=== PATIENT | female | born 1995 | race Caucasian/White ===

== ENCOUNTER 2020-10-20 21:11 | Emergency (ER) | payer OTHER, SELFPAY ==
[2020-10-20 21:19] VITALS: BP 135/84; PULSE 87; RESP 18; TEMP 36.6; O2SAT 99; BMI 33.8
[2020-10-20 22:12] VITALS: BP 129/86; PULSE 81; RESP 16; TEMP 36.6; O2SAT 99
[2020-10-20] MEDS: Ketorolac Tromethamine 15 MG/ML VIAL IVPUSH (22:43)
[2020-10-20] MEDS: diphenhydrAMINE HCL 50 MG/ML VIAL 25 MG IVPUSH (22:43)
[2020-10-20] MEDS: 0.9 % Sodium Chloride 1,000 ML 999 ML IV (22:43)
[2020-10-20] MEDS: Metoclopramide HCl 10 MG/2 ML VIAL IVPUSH (22:44)
[2020-10-21] VITALS: BP 108/66; PULSE 78; RESP 18; O2SAT 99
--- NOTE | 2020-10-21 00:33 | ED_ITS ---
HPI - Headache General Chief Complaint: Headache Stated Complaint: MIGRAINE Time Seen by Provider: 10/20/20 21:34 Source: patient Mode of arrival: ambulatory Limitations: no limitations History of Present Illness HPI Narrative: States onset of headache since waking up this morning gradually worsening over the course of the day works in [employer] with OTC treatment. States longstanding history of migraine headache seen her primary care doctor has not formally been evaluated in neurology. Headache similar to previous however today a little longer but similar in intensity and description. No recent illness. No fever. No neck pain. No recent injury. Not thunderclap like. MD elicited complaint: migraine Onset (ago): day(s) (1) Onset description: gradually Location: diffuse Severity: moderate Quality & Timing: aching Exacerbating factors: none Relieving factors: dark room Context: occurred at rest Associated symptoms: photophobia and sensitivity to sound Treatments prior to arrival: acetaminophen Related Data Previous Rx's Medication Instructions Recorded naproxen 500 mg PO BID PRN #14 tab 10/21/20 Allergies Allergy/AdvReac Type Severity Reaction Status Date / Time No Known Allergies Allergy Unverified 04/19/20 16:36 Review of Systems Review of Systems: Constitutional: No Weight loss, No Fever, No Chills, No Night Sweats, No Fatigue, No Malaise ENT/Mouth: No Hearing loss, No Ear Pain, No Nasal Congestion, No Sinus Pain, No Hoarseness, No sore throat, No Rhinorrhea, No Swallowing Difficulty Eyes: No Eye Pain, No Swelling, No Redness, No Foreign Body, No Discharge, No Vision Changes Cardiovascular: No Chest Pain, No SOB, No Dyspnea on Exertion, No Orthopnea, No Edema, No Palpitations Respiratory: No Cough, No Sputum, No Wheezing, No Smoke Exposure, No Dyspnea Gastrointestinal: No Nausea, No Vomiting, No Diarrhea, No Constipation, No abdominal Pain, No Hematochezia, No Melena Genitourinary: no irregular bleeding, No Dysuria, No Urinary Frequency, No Hematuria, No Urinary Incontinence, No Urgency, No Flank Pain, No Urinary Flow Changes, No Hesitancy Musculoskeletal: No joint pain, No Myalgias, No Joint Swelling Skin: No Skin Lesions, No rash Neuro: No Weakness, No Numbness, No Paresthesias, No Loss of Consciousness, No Dizziness, + Headache Psych: No Social Issues Heme/Lymph: No Bruising, No Bleeding,No Lymphadenopathy Endocrine: No Polyuria, No Polydipsia, No Temperature Intolerance [facility] Past Medical History Medical History (Updated 10/21/20 @ 00:45 by Raj Cunha NP) Migraines Surgical History (Updated 10/20/20 @ 21:22 by Merline Palomares) History of appendectomy [place] teeth extracted Social History Social History Smoking Status: Never smoker Use of substances other than those prescribed or required for medical reasons: No Advance Directives: No Physical Exam Vital Signs: Vital Signs: Last Vital Signs Temp 97.8 F 10/20/20 22:12 Pulse 78 10/21/20 00:00 Resp 18 10/21/20 00:00 BP 108/66 10/21/20 00:00 Pulse Ox 99 10/21/20 00:00 Body Mass Index 33.8 Reviewed Const: General: cooperative and healthy appearing; No acute distress or intoxicated appearing Nutritional Appearance: average body habitus Orientation/consciousness: oriented to person, oriented to place, oriented to time and patient oriented x3 HENMT: Head: Yes normal to inspection Ears: hearing grossly normal bilaterally Eyes: General: appearance normal, both eyes and all related structures Visual Gaytan: normal visual gaytan by confrontation Pupils: Equal, round and reactive pupils present Neck: Neck: Yes normal visual inspection, Yes no meningeal signs, No positive Brudzinski's sign, No positive Kernig's sign and No tender Thyroid: Thyroid normal Chest: Chest palpation & inspection: normal inspection of the chest Resp: Effort & Inspection: normal respiratory effort Auscultation: clear to auscultation bilaterally Cardio: Jugular venous distension: no JVD Rhythm: regular rhythm Heart sounds: S1 normal heart sound present and S2 normal heart sound present GI: Inspection: Yes normal to inspection Palpation (GI): Soft to palpation Percussion: Yes normal to percussion Auscultation: normal bowel sounds : General: Yes no CVA tenderness Back/Spine/Pelvis: Back: no CVA tenderness Skin: General skin exam: no rashes or lesions noted Neuro: General: oriented to person, oriented to place, oriented to time, patient oriented x3, gait normal, tone normal, moves all extremities, Normal light touch and pain sensation, no meningeal signs, no focal motor deficits and CN's II-XI intact bilaterally Cranial nerves: Yes CN's II-XII intact bilaterally, Yes Facial sensation intact/muscles of mastication intact, Yes Intact sense of smell present, Yes Equal, round and reactive pupils present and Yes Normal accommodation reflex present Cognition (Neuro): normal cognition Gait exam (Neuro): Normal gait present Motor exam (neuro): 5/5 motor strength present throughout Extrem: General: Yes normal to inspection Psych: Appearance: grossly normal NIH Stroke Scale Internal: Initial- Upon Arrival Level of Consciousness: Alert Level of Consciousness Questions: Answers both questions correctly Level of Consciousness Commands: Performs both tasks correctly Best Gaze: Normal Visual: No visual loss Facial Palsy: Normal Motor Arm (Right): No drift Motor Arm (Left): No drift Motor Leg (Right): No drift Motor Leg (Left): No drift Limb Ataxia: Absent Sensory: Normal Best Language: No aphasia Dysarthia: Normal Extinction and Inattention: No abnormality Score: 0 Course Course Course Narrative: Feels much better after IV fluids and 25 mg of Benadryl/Reglan and Toradol. Headache has fully resolved able sleep for 1 hour. Educated on the importance of keeping a headache diary/log and will provide referral to Neurology. She feels comfortable plan she is thankful and verbalized understanding. Otherwise hemodynamically stable. Stable for discharge. Discharge Plan Discharge Clinical Impression: Migraine Patient Disposition: Home, Self-Care Instructions: Migraine Headache (ED) Additional Instructions: Keep a headache diary/log Stress relieving techniques Balanced diet Regular exercise Plan to sleep Follow-up with her primary care doctor as well as Neurology as discussed Return if any concerns or worsening symptoms Thank you Prescriptions: New naproxen 500 mg tablet 500 mg PO BID PRN (Reason: pain) Qty: 14 RF: 0 Referrals: Marcia Garza MD [Primary Care Provider] - 1 week Marguerite Lees MD [Physician] - 2 weeks
== END 2020-10-21 01:19 | disposition home or self-care (01) ==
PROVIDERS: Emergency Provider Internal Medicine; PCP Internal Medicine
DX: G43.909 Migraine, unspecified, not intractable, without status migrainosus (principal); Z79.899 Other long term (current) drug therapy
CPT/HCPCS: 96365; 96375; 99284; J1200; J1885; J2765

== ENCOUNTER 2021-04-11 14:24 | Outpatient (REF) | payer OTHER, SELFPAY ==
--- NOTE | ~2021-04-11 | XR_ITS ---
EXAMINATION: XR CHEST CLINICAL INFORMATION: Chest pain. COMPARISON: None TECHNIQUE: 2 views of the chest were obtained. FINDINGS: No significant abnormality is noted involving the heart, lungs, mediastinum, bony thorax or soft tissues. XR/XR chest 2V IMPRESSION: Unremarkable chest exam
== END 2021-04-11 14:25 | disposition home or self-care (01) ==
LOC: HO.HMGCX 14:24
PROVIDERS: Visit Provider Hospitalist
DX: Z13.89 Encounter for screening for other disorder (principal)
CPT/HCPCS: 71046

== ENCOUNTER → 2022-06-04 09:00 | Outpatient (BNVA) | payer OTHER, SELFPAY | PROVIDERS: PCP Family Medicine; Referring Provider Family Medicine; Visit Provider Internal Medicine Cardiovascular Disease | DX: R07.9 Chest pain, unspecified (principal); Q24.9 Congenital malformation of heart, unspecified | CPT/HCPCS: 93005 ==

== ENCOUNTER → 2022-06-25 07:51 | Outpatient (REF) | payer OTHER, SELFPAY ==
--- NOTE | 2022-06-25 07:54 | CA_ITS ---
Acquisition Time: 2022-06-25 08:00:20 Total Exercise Time: 00:05:42 Test Indications: CP Medications: SEE CHART Protocol: AMRITA Max HR: 187 BPM 95% of Pred: 196 BPM Max BP: 126/074 mmHG Max Work Load: 7.0 METS Exercise stress test with exercise 5 min 42 sec of Amrita protocol, achieving 95% MPHR, 7 METs, with moderate sob, with a slight burning in mid chest that occurred during exercise and lasted a few seconds and resolved while still on treadmill, without arrythmia, with normotensive response to exercise, without EKG changes meeting criteria for ischemia. While sitting in recliner in recovery she reported a slight reoccurence of the chest burning. Then at 8 min 50 sec recovery she reported pressure 4/10 in mid chest which is like what she gets at home EKG tracings continued to show no ischemic changes. Her symptom gradually improved during remainder of her 16 min recovery. Test reviewed with Dr Joshi. Referred By: Antonio Jefferson Overread By: ELIOT READ
== END ==
LOC: HO.CARD 07:51
PROVIDERS: Visit Provider Internal Medicine Cardiovascular Disease
DX: R07.9 Chest pain, unspecified (principal)
CPT/HCPCS: 93017

== ENCOUNTER 2022-12-25 12:36 | Inpatient (IN) | payer OTHER, SELFPAY ==
--- NOTE | ~2022-12-25 | US_ITS ---
EXAMINATION: US ABDOMEN LIMITED CLINICAL INFORMATION: Abdominal pain questionable cholecystitis. COMPARISON: CT scan from 07/28/2017 TECHNIQUE: Real-time imaging of the right upper quadrant abdominal viscera. FINDINGS: PANCREAS: Partially visualized pancreas is unremarkable but the tail obscured by bowel gas. LIVER: liver demonstrate increased echogenicity of liver due to hepatic steatosis. The liver is enlarged with the right lobe measured 19 cm.. The liver contour is normal. No focal hepatic lesion. There is no intrahepatic biliary duct dilatation seen. GALLBLADDER: Abnormal there are numerous mobile gallstones, gallbladder wall measures 0.4cm. Sonographic Cordero's sign reported negative COMMON BILE DUCT: Normal in caliber measuring 0.4 cm in diameter, without evidence of choledocholithiasis. RIGHT KIDNEY:No hydronephrosis. No renal calculi or focal parenchymal lesions. The kidney measures 10.8 cm in maximum dimension. FREE FLUID: None. US/US abdomen limited IMPRESSION: 1. Hepatic steatosis and hepatomegaly. 2. Cholelithiasis and mild gallbladder wall thickening.
--- NOTE | 2022-12-25 12:55 | ED.ABDPAIN ---
HPI - Abdominal Pain General Chief Complaint: Abdominal Pain Stated Complaint: Vomiting Dehydration Time Seen by Provider: 12/25/22 16:06 Source: patient Mode of arrival: ambulatory Limitations: no limitations History of Present Illness HPI narrative: Patient is a 27 year old female with history of congenital heart disease presenting to the emergency department today with chief complaint of right upper quadrant pain radiating to her back with associated nausea and vomiting. She reports that these symptoms began at 3am and that she has vomited about 8 times since. She tried taking pepto-bismol for the pain however this provided minimal relief and pain has remained a constant 05/12. She reports similar episodes of RUQ pain and vomitting in the past however never to this severity. Patient has a history of appendectomy and has had no recent travel or sick contacts. Denies chest pain, palpitations, shortness of breath, fevers. Related Data Home Medications Medication Instructions Recorded Confirmed diclofenac potassium 50 mg tablet 25 - 50 mg PO Q8H PRN pain 06/04/22 06/04/22 topiramate 25 mg tablet 25 mg PO DAILY 06/04/22 06/04/22 Allergies Allergy/AdvReac Type Severity Reaction Status Date / Time No Known Allergies Allergy Verified 04/11/21 13:53 Review of Systems Review of Systems Constitutional : No Weight loss, No Fever, + Chills, + Fatigue, + Malaise ENT/Mouth : No sore throat, No Rhinorrhea Eyes: No Eye Pain, No Swelling, No Redness Cardiovascular : No Chest Pain, No SOB, No Dyspnea on Exertion, No Orthopnea, No Edema, No Palpitations Respiratory : No Cough, No Sputum, No Wheezing Gastrointestinal : + Nausea, + Vomiting, No Diarrhea, No Constipation, + abdominal Pain, No Hematochezia, No Melena Genitourinary : No Dysuria, No Urinary Frequency, No Hematuria, Musculoskeletal : No joint pain, No Myalgias, No Joint Swelling Skin : No Skin Lesions, No rash Neuro : + Weakness, No Numbness, + Dizziness, No Headache Psych : No Anxiety/Panic, No Depression All other systems reviewed and are negative Yes all other systems are reviewed and are negative [facility] Past Medical History Attestation statement: The following information was validated with the patient. Source: old records reviewed and nursing notes reviewed Medical History Migraines Surgical History History of appendectomy Hx of heart surgery [place] teeth extracted Family History Family History Father Diabetes Mother Diabetes Social History Social History Patient Tobacco Use Status: Never used Tobacco Smoked in Last 30 Days: No Use of substances other than those prescribed or required for medical reasons: No Advance Directives: No Advance Directives Information Provided: No Physical Exam ED Vital Signs: Vital Signs - 24 hr 12/25/22 12:57 12/25/22 15:47 12/25/22 17:48 Temperature 96.8 F 98.5 F Pulse Rate 88 78 Respiratory Rate 18 18 16 Blood Pressure 148/110 H 144/86 H Pulse Oximetry 100 100 Oxygen Delivery Method Room Air Room Air 12/25/22 17:50 Temperature 98.9 F Pulse Rate 88 Respiratory Rate 16 Blood Pressure 129/77 Pulse Oximetry 100 Oxygen Delivery Method Room Air BMI result Body Mass Index 39.9 Vital signs stable Appearance: Alert.? Oriented X3.? No acute distress.?Appears uncomfortable. Head: Normocephalic, atraumatic, no step-offs or deformities Eyes: Pupils equal, round and reactive to light.? CVS: Normal heart rate and rhythm.? Pulses normal.? Respiratory: No respiratory distress.? Breath sounds normal.? Abdomen: Soft and RUQ pain + murphys sign, + right-sided CVA tenderness. Normal BS in all .? Skin: Skin warm and dry.? Normal skin color.? Normal skin turgor.? Extremities: No lower extremity edema.? No calf ttp. 5/5 strength to bilateral upper and lower extremities Neuro: Oriented X 3.? No motor deficit.? No sensory deficit. CN 2-12 intact Course Course Course Narrative: This is a rapid medical exam. Deferred additional HPI, ROS, PE to primary provider. 27 yo female w/ history of CHD with repair as a child, s/p appy here with RUQ abdominal pain with radiation to the right back, vomiting since 3am. Had rice, beans last night for dinner. LMP 3 weeks ago. WIll check labs, UA, ur preg, covid screen, abdominal US. Reevaluation(s) Reevaluation #1: CBC demonstrates leukocytosis WBC 12. Chemistry uremarkable. Lactic WNL. UA unremarkable. Urine preg negative. Time: 17:26 Reevaluation #2: Ultrasound showing cholelithiasis and mild gallbladder wall thickening. Will consult surgery Dr. Holden. Time: 17:28 Reevaluation #3: Patient to be surgically admitted at this time. Dr. Holden recommends adding a cephlasporin and NPO Time: 18:11 Medical Decision Making Medical Decision Making [facility] Narrative: 1728 Patient is a 27 year old female presenting with RUQ pain with radiation to the right flank, nausea, and vomiting since 3am. Physical exam significant for tenderness to palpation of RUQ, positive judge sign, nauseous and vomiting throughout my exam. Differential diagnosis includes kidney stones, acute cholecystitis, gastritis, peptic ulcers. Unlikely pyelonephritis, , ovarian torsion, ectopic, acute abdomen. Patient has a history of appendectomy. Plan labs, imaging, UA, test. Differential Diagnosis Differential Diagnoses: The differential diagnosis associated with the presentation includes Differential diagnosis includes kidney stones, acute cholecystitis, gastritis, peptic ulcers. Unlikely pyelonephritis, , ovarian torsion, ectopic, acute abdomen. Patient has a history of appendectomy. Admission/Observation Consideration of admission/observation: Escalation of care including admission/observation considered Lab Data [facility] Lab Attestation statement: I reviewed the patient's lab results. 12/25/22 13:09 12/25/22 13:09 Labs: Lab Results 12/25/22 12/25/22 12/25/22 Range/Units 13:09 13:09 13:09 WBC 12.0 H (4.8-10.8) X10*3/uL RBC 5.14 (4.20-5.50) X10*6/uL Hgb 14.4 (12.0-16.0) g/dl Hct 42.5 (37.0-47.0) % MCV 82.7 (80.0-98.0) fL MCH 28.0 (27.0-33.0) pg MCHC 33.9 (31.0-35.0) g/dl RDW 14.1 (11.0-16.0) % Plt Count 326 (160-400) X10*3/uL MPV 10.3 (9.4-12.3) fL Immature Gran % (Auto) 0.2 (0.0-0.4) % Neut % (Auto) 89.8 H (45-73) % Lymph % (Auto) 8.4 L (20-40) % [place] % (Auto) 1.4 L (2-11) % Eos % (Auto) 0.0 (0-4) % Baso % (Auto) 0.2 (0-2) % Lymph # (Auto) 1.0 L (1.2-4.9) X10*3/uL [place] # (Auto) 0.2 (0.1-1.2) X10*3/uL Eos # (Auto) 0.0 (0.0-0.4) X10*3/uL Baso # (Auto) 0.0 (0.0-0.2) X10*3/uL Abs Immat Gran (auto) 0.03 (0.00-0.03) X10*3/uL Absolute Neuts (auto) 10.8 H (2.0-8.3) x10*3/uL Absolute Nucleated RBC 0.000 (0.0-0.012) X10*3/uL Nucleated RBC % (auto) 0.0 (0.0-0.2) /100WBC Sodium 137 (135-145) mmol/L Potassium 4.6 (3.3-5.1) mmol/L Chloride 108 (96-108) mmol/L Carbon Dioxide 20 L (22-29) mmol/L Anion Gap 14 (12-20) BUN 12 (9-16) mg/dL Creatinine 0.63 (0.5-1.4) mg/dL Estim Creat Clear Calc 127.5 Estimated GFR > 60 Random Glucose 138 H (60-115) mg/dL Lactic Acid (0.5-2.0) mmol/L Calcium 9.8 (8.4-10.2) mg/dL Total Bilirubin 0.7 (0.0-1.0) mg/dL Direct Bilirubin 0.2 (0.0-0.5) mg/dL AST 19 (5-31) U/L ALT 32 H (0-31) U/L Alkaline Phosphatase 114 (39-117) U/L Total Protein 8.0 (6.5-8.0) g/dL Albumin 4.7 (3.5-5.0) g/dL Lipase 14 (8-78) U/L Urine Color Urine Appearance Urine pH (5.0-9.0) Ur Specific [place] (1.005-1.025) Urine Protein (Neg-Trace) mg/dL Urine Glucose (UA) (Negative) mg/dL Urine Ketones (Negative) mg/dL Urine Blood (Negative) Urine Nitrite (Negative) Ur Leukocyte Esterase (Negative) Urine Test (NEGATIVE) COVID-19 (SYLVIA) Negative (Negative) COVID-19 Clin Com See Note 12/25/22 12/25/22 12/25/22 Range/Units 13:13 13:13 16:43 WBC (4.8-10.8) X10*3/uL RBC (4.20-5.50) X10*6/uL Hgb (12.0-16.0) g/dl Hct (37.0-47.0) % MCV (80.0-98.0) fL MCH (27.0-33.0) pg MCHC (31.0-35.0) g/dl RDW (11.0-16.0) % Plt Count (160-400) X10*3/uL MPV (9.4-12.3) fL Immature Gran % (Auto) (0.0-0.4) % Neut % (Auto) (45-73) % Lymph % (Auto) (20-40) % [place] % (Auto) (2-11) % Eos % (Auto) (0-4) % Baso % (Auto) (0-2) % Lymph # (Auto) (1.2-4.9) X10*3/uL [place] # (Auto) (0.1-1.2) X10*3/uL Eos # (Auto) (0.0-0.4) X10*3/uL Baso # (Auto) (0.0-0.2) X10*3/uL Abs Immat Gran (auto) (0.00-0.03) X10*3/uL Absolute Neuts (auto) (2.0-8.3) x10*3/uL Absolute Nucleated RBC (0.0-0.012) X10*3/uL Nucleated RBC % (auto) (0.0-0.2) /100WBC Sodium (135-145) mmol/L Potassium (3.3-5.1) mmol/L Chloride (96-108) mmol/L Carbon Dioxide (22-29) mmol/L Anion Gap (12-20) BUN (9-16) mg/dL Creatinine (0.5-1.4) mg/dL Estim Creat Clear Calc Estimated GFR Random Glucose (60-115) mg/dL Lactic Acid 1.8 (0.5-2.0) mmol/L Calcium (8.4-10.2) mg/dL Total Bilirubin (0.0-1.0) mg/dL Direct Bilirubin (0.0-0.5) mg/dL AST (5-31) U/L ALT (0-31) U/L Alkaline Phosphatase (39-117) U/L Total Protein (6.5-8.0) g/dL Albumin (3.5-5.0) g/dL Lipase (8-78) U/L Urine Color Yellow Urine Appearance Clear Urine pH >= 9.0 (5.0-9.0) Ur Specific [place] 1.025 (1.005-1.025) Urine Protein Trace (Neg-Trace) mg/dL Urine Glucose (UA) Negative (Negative) mg/dL Urine Ketones 40 (Negative) mg/dL Urine Blood Negative (Negative) Urine Nitrite Negative (Negative) Ur Leukocyte Esterase Negative (Negative) Urine Test NEGATIVE (NEGATIVE) COVID-19 (SYLVIA) (Negative) COVID-19 Clin Com Independent Interpretation I performed an independent interpretation of an: Ultrasound (US/US abdomen limited IMPRESSION: 1.? Hepatic steatosis and hepatomegaly. 2.? Cholelithiasis and mild gallbladder wall thickening.) Radiology Impression Discussion of test interpretation with radiology: I have reviewed the radiologist's reading. External Record Review External record reviewed: Inpatient record, Office record, Outpatient record, Prior outpatient labs, Prior outpatient radiology, Primary care record and Outside ED record Core Measures AMI core measures followed: Yes Measure exclusions: not indicated Medications Administered Discontinued Medications Generic Name Dose Route Start Last Admin Trade Name Freq PRN Reason Stop Dose Admin Morphine Sulfate 4 mg 12/25/22 16:42 12/25/22 17:48 Morphine Sulfate 4 Mg/Ml Cartridge IVPUSH 12/25/22 16:43 4 mg ONCE ONE Administration Protocol Ondansetron HCl 4 mg 12/25/22 14:27 12/25/22 14:34 Ondansetron Odt 4 Mg Tab.Sheryl TRANSLINGU 12/25/22 14:28 4 mg ONCE ONE Administration Critical Care Time Critical Care Time Critical Care Time: Yes Total Critical Care Time: 35 Attestation: I attest to this time spent taking care of the patient, obtaining history, physical, reviewing labs, imaging, speaking to my attending, speaking to specialist. Discharge Plan Discharge Clinical Impression: Abdominal pain, Nausea & vomiting Patient Disposition: Admitted As Inpatient Prescriptions: No Action topiramate 25 mg tablet 25 mg PO DAILY diclofenac potassium 50 mg tablet 25 - 50 mg PO Q8H PRN (Reason: pain)
[2022-12-25 12:57] VITALS: BP 148/110; PULSE 88; RESP 18; TEMP 36; O2SAT 100; BMI 39.9
[2022-12-25 13:20] LABS: MANUAL DIFF FLAG NO
[2022-12-25 13:27] LABS: Basophils Percent Auto 0.2 % (0-2); Hematocrit 42.5 % (37.0-47.0); Hemoglobin 14.4 g/dl (12.0-16.0); Imm Gran Abs Auto 0.03 X10*3/uL (0.00-0.03); Imm Gran Pct Auto 0.2 % (0.0-0.4); Lymphocytes Percent Auto 8.4 % (20-40); Mean Corpuscular HGB Conc 33.9 g/dl (31.0-35.0); Mean Corpuscular Volume 82.7 fL (80.0-98.0); Mean Platelet Volume 10.3 fL (9.4-12.3); Monocytes Absolute Auto 0.2 X10*3/uL (0.1-1.2); Monocytes Percent Auto 1.4 % (2-11); Neutrophils Absolute Auto 10.8 x10*3/uL (2.0-8.3); Neutrophils Percent Auto 89.8 % (45-73); Platelet Count 326 X10*3/uL (160-400); Red Blood Count 5.14 X10*6/uL (4.20-5.50); Red Cell Distribution Width 14.1 % (11.0-16.0)
[2022-12-25 13:29] LABS: Appearance Urine Clear; Color Urine Yellow; Glucose Urine UA Negative (Negative); Leukocyte Esterase Urine Negative (Negative); Nitrite Urine Negative (Negative); PH >= 9.0 (5.0-9.0); Specific Gravity - Urine 1.025 (1.005-1.025); UPreg QC Valid YES; Urine Blood Negative (Negative); Urine Ketones 40 mg/dL (Negative); Urine Pregnancy NEGATIVE (NEGATIVE); Urine Protein Trace mg/dL (Neg-Trace)
[2022-12-25 13:40] LABS: COVID-19 Test Negative (Negative); IDNOW Serial# BCCEAD1C
[2022-12-25 13:43] LABS: Alanine Aminotransferase 32 U/L (0-31); Albumin Level 4.7 g/dL (3.5-5.0); Alkaline Phosphatase 114 U/L (39-117); Anion Gap 14 (12-20); Aspartate Amino Transferase 19 U/L (5-31); Bilirubin Direct 0.2 mg/dL (0.0-0.5); Bilirubin Total 0.7 mg/dL (0.0-1.0); Blood Urea Nitrogen 12 mg/dL (9-16); Calcium 9.8 mg/dL (8.4-10.2); Carbon Dioxide 20 mmol/L (22-29); Chloride 108 mmol/L (96-108); Creatinine Clr Calc Pharmacy 127.5; Estimated Glomerular Filt Rate > 60; Glucose Random 138 mg/dL (60-115); Potassium 4.6 mmol/L (3.3-5.1); Sodium 137 mmol/L (135-145)
[2022-12-25] MEDS: Ondansetron ODT 4 MG TAB.RAPDIS TRANSLINGU (14:34)
[2022-12-25 15:47] VITALS: BP 144/86; PULSE 78; RESP 18; TEMP 36.9; O2SAT 100
[2022-12-25 17:06] LABS: Lipase 14 U/L (8-78)
[2022-12-25 17:11] LABS: Lactic Acid 1.8 mmol/L (0.5-2.0)
[2022-12-25 17:48] VITALS: RESP 16
[2022-12-25] MEDS: Morphine Sulfate 4 MG/ML CARTRIDGE IVPUSH (17:48)
[2022-12-25 17:50] VITALS: BP 129/77; PULSE 88; RESP 16; TEMP 37.2; O2SAT 100
[2022-12-25] MEDS: cefTRIAXone sodium 1 GM in 0.9 % Sodium Chloride 50 ML IV (18:31)
--- NOTE | 2022-12-25 20:46 | PHA.MEDREC ---
Pharmacy Consult ? Medication Reconciliation Pharmacy has completed the medication reconciliation. Pt confirmed she is on topiramate 25 mg bid for migraine prevention and diclofenac for migraine pain. States no other medications but also doesn't remember the last time she took her medications. Says she did not take this morning dose.
[2022-12-25] MEDS: Lactated Ringers 1,000 ML 100 ML IVCONT (22:56)
[2022-12-25 23:33] VITALS: BP 135/82; PULSE 60; RESP 18; TEMP 36.4; O2SAT 98
--- NOTE | 2022-12-25 23:46 | PC.NURSE ---
Assumed care for patient at approximately 2130. A&O x4. Initially pain was 2/10. Is now increasing . Awaiting pain medication orders. Patient resting at present , vss, will continue to monitor.
[2022-12-26] VITALS (17 sets, daily range): BP systolic 128–169; BP diastolic 62–105; PULSE 60–91; RESP 16–20; TEMP 36.3–37.1; O2SAT 97–100
[2022-12-26] MEDS: Morphine Sulfate 4 MG/ML CARTRIDGE IVPUSH (00:03)
[2022-12-26] MEDS: Lactated Ringers 1,000 ML 100 ML IVCONT (08:41)
--- NOTE | 2022-12-26 08:44 | PM.HPGS ---
History of Present Illness History of Present Illness Date of Service: 12/26/22 Chief complaint: acute cholecystitis Narrative: Anand Geiger is a 27 year old female Presents with approximately 2 day history of progressively worsening epigastric right upper quadrant pain radiating around to her back. She has social nausea vomiting. She has no other GI issues or complaints. She is tolerating a diet. She is having normal bowel habits. Patient has never been jaundiced before. Chart was reviewed patient evaluated. most noteworthy for pediatric congenital heart surgery PMFSH Past Medical History Medical History Migraines Family History Family History Father Diabetes Mother Diabetes Surgical History Surgical History History of appendectomy Hx of heart surgery [place] teeth extracted Social History Social History Patient Tobacco Use Status: Never used Tobacco Smoked in Last 30 Days: No Use of substances other than those prescribed or required for medical reasons: No Advance Directives: No Advance Directives Information Provided: No Meds Allergies Allergy/AdvReac Type Severity Reaction Status Date / Time No Known Allergies Allergy Verified 04/11/21 13:53 Active Medications: Current Medications Lactated Ringer's (Lr) 1,000 mls @ 100 mls/hr IVCONT .Q10H REA Last Admin: 12/25/22 22:56 Dose: 100 mls/hr Ceftriaxone Sodium 1 gm/ (Sodium Chloride) 50 mls @ 100 mls/hr IV Q24H FOR[facility]LY [facility], [facility]–1983 Morphine Sulfate (Morphine Sulfate 4 Mg/Ml Cartridge) 4 mg IVPUSH Q4H PRN; Protocol PRN Reason: Pain, Severe (Pain Scale 7-10) Ondansetron HCl (Ondansetron Hcl 4 Mg/2 Ml Vial) 4 mg IVPUSH Q6H PRN PRN Reason: Nausea Oxycodone HCl (Oxycodone Hcl Immed Release 5 Mg Tablet) 5 mg PO Q4H PRN PRN Reason: Pain, Moderate(Pain Scale 4-6) Home Medications Medication Instructions Recorded Confirmed Last Taken Type diclofenac potassium 50 mg tablet 25 - 50 mg PO Q8H PRN Migraine 06/04/22 12/25/22 Unknown History Headache topiramate 25 mg tablet 25 mg PO BID 06/04/22 12/25/22 Unknown History Physical Exam Vital Signs: Vital Signs: Last Vital Signs Temp 98.2 F 12/26/22 07:23 Pulse 79 12/26/22 07:23 Resp 16 12/26/22 07:23 BP 130/74 12/26/22 07:23 Pulse Ox 98 12/26/22 07:23 O2 Del Method Room Air 12/26/22 07:23 BMI result Body Mass Index 39.9 Chest: Other: Chest breath sounds bilaterally, HS 1 and 2. GI: Other: Abdomen corpulent, marked right upper quadrant tenderness. No evidence of any rebound or rigidity. Results Results Labs: Short CBC 12/25/22 Range/Units 13:09 WBC 12.0 H (4.8-10.8) X10*3/uL Hgb 14.4 (12.0-16.0) g/dl Hct 42.5 (37.0-47.0) % Plt Count 326 (160-400) X10*3/uL BMP 12/25/22 13:09 Sodium 137 Potassium 4.6 Chloride 108 Carbon Dioxide 20 L BUN 12 Creatinine 0.63 Calcium 9.8 Liver Function 12/25/22 Range/Units 13:09 Total Bilirubin 0.7 (0.0-1.0) mg/dL Direct Bilirubin 0.2 (0.0-0.5) mg/dL AST 19 (5-31) U/L ALT 32 H (0-31) U/L Alkaline Phosphatase 114 (39-117) U/L Albumin 4.7 (3.5-5.0) g/dL Urine 12/25/22 12/25/22 Range/Units 13:13 13:13 Urine Color Yellow Urine Appearance Clear Urine pH >= 9.0 (5.0-9.0) Ur Specific [place] 1.025 (1.005-1.025) Urine Protein Trace (Neg-Trace) mg/dL Urine Glucose (UA) Negative (Negative) mg/dL Urine Test NEGATIVE (NEGATIVE) Assessment and Plan (1) Acute cholecystitis: Status: Acute Plan Clinical evaluation and sonographic studies are consistent with acute cholecystitis. Risks, benefits, alternatives of laparoscopic possible open cholecystectomy reviewed with the patient and included but not limited to bleeding, infection, recurrence, numbness, pain, scarring, bowel or duct injury or leak and the patient wishes to proceed. Arrangements will be made for this. All questions were answered. Time Spent With Patient Time: Total time managing care of this patient today ____ minutes. Quality Stroke Does the patient have a stroke diagnosis?: No VTE Prior VTE?: No VTE Risk Level:: Surgical - low VTE Device Contraindication: Treatment Not Tolerated VTE Drug Contraindication: Treatment Not Indicated Procedures Date of Service Date of Service: 12/26/22
--- NOTE | 2022-12-26 08:46 | PC.NURSE ---
patient a&ox3, currently kayla pain- states she has mild discomfort not enough to rate as pain to rt flank, ivf running per order, vss, daughter at bedside. pt requesting toothbrush/toothpaste, call quesada within reach, will continue to monitor
--- NOTE | 2022-12-26 11:03 | PC.NURSE ---
pt sent to short stay for surgery
--- NOTE | 2022-12-26 11:38 | HO.ANESPROP2 ---
HPI - Anesthesia Eval Consult details Narrative: Cholecystectomy PMFSH Active Problems Active Problems: All Active Problems (Updated 12/26/22 @ 08:46 by Kendrick Holden MD) Acute cholecystitis (Acute) Abdominal pain (Acute) Nausea & vomiting (Acute) Adult congenital heart disease (Acute) Chest pain (Acute) Past Medical History Medical History Migraines Family History Family History Father Diabetes Mother Diabetes Family history of problems with anesthesia: No Surgical History Surgical History History of appendectomy Hx of heart surgery [place] teeth extracted History of Problems with Anesthesia: No Social History Social History Patient Tobacco Use Status: Never used Tobacco Smoked in Last 30 Days: No Use of substances other than those prescribed or required for medical reasons: No Are you DNR?: No Advance Directives: No Advance Directives Information Provided: No Nutrition Risks: No Nutritional Risk Patient : No Meds Allergies Allergy/AdvReac Type Severity Reaction Status Date / Time No Known Allergies Allergy Verified 04/11/21 13:53 Active Medications: Current Medications Lactated Ringer's (Lr) 1,000 mls @ 100 mls/hr IVCONT .Q10H REA Last Admin: 12/26/22 08:41 Dose: 100 mls/hr Ceftriaxone Sodium 1 gm/ (Sodium Chloride) 50 mls @ 100 mls/hr IV Q24H REPLACED BY [facility] Morphine Sulfate (Morphine Sulfate 4 Mg/Ml Cartridge) 4 mg IVPUSH Q4H PRN; Protocol PRN Reason: Pain, Severe (Pain Scale 7-10) Ondansetron HCl (Ondansetron Hcl 4 Mg/2 Ml Vial) 4 mg IVPUSH Q6H PRN PRN Reason: Nausea Oxycodone HCl (Oxycodone Hcl Immed Release 5 Mg Tablet) 5 mg PO Q4H PRN PRN Reason: Pain, Moderate(Pain Scale 4-6) Home Medications Medication Instructions Recorded Confirmed Last Taken Type diclofenac potassium 50 mg tablet 25 - 50 mg PO Q8H PRN Migraine 06/04/22 12/25/22 Unknown History Headache topiramate 25 mg tablet 25 mg PO BID 06/04/22 12/25/22 Unknown History Exam Exam Date and Time: December 26, 2022 1138 Height,Weight and Vital Signs: Height 4 ft 10 in Weight 86.636 kg Last Vital Signs Temp 97.3 F 12/26/22 11:11 Pulse 90 12/26/22 11:11 Resp 20 12/26/22 11:11 BP 146/94 H 12/26/22 11:11 Pulse Ox 98 12/26/22 11:11 O2 Del Method Room Air 12/26/22 11:11 Pertinent Lab Results Pertinent Lab Results: Laboratory Tests 12/25/22 12/25/22 12/25/22 13:09 13:09 13:09 WBC 12.0 H RBC 5.14 Hgb 14.4 Hct 42.5 MCV 82.7 MCH 28.0 MCHC 33.9 RDW 14.1 Plt Count 326 MPV 10.3 Immature Gran % (Auto) 0.2 Neut % (Auto) 89.8 H Lymph % (Auto) 8.4 L [place] % (Auto) 1.4 L Eos % (Auto) 0.0 Baso % (Auto) 0.2 Lymph # (Auto) 1.0 L [place] # (Auto) 0.2 Eos # (Auto) 0.0 Baso # (Auto) 0.0 Abs Immat Gran (auto) 0.03 Absolute Neuts (auto) 10.8 H Absolute Nucleated RBC 0.000 Nucleated RBC % (auto) 0.0 Sodium 137 Potassium 4.6 Chloride 108 Carbon Dioxide 20 L Anion Gap 14 BUN 12 Creatinine 0.63 Estim Creat Clear Calc 127.5 Estimated GFR > 60 Random Glucose 138 H Lactic Acid Calcium 9.8 Total Bilirubin 0.7 Direct Bilirubin 0.2 AST 19 ALT 32 H Alkaline Phosphatase 114 Total Protein 8.0 Albumin 4.7 Lipase 14 Urine Color Urine Appearance Urine pH Ur Specific [place] Urine Protein Urine Glucose (UA) Urine Ketones Urine Blood Urine Nitrite Ur Leukocyte Esterase Urine Test COVID-19 (SYLVIA) Negative COVID-19 Clin Com See Note 12/25/22 12/25/22 12/25/22 13:13 13:13 16:43 WBC RBC Hgb Hct MCV MCH MCHC RDW Plt Count MPV Immature Gran % (Auto) Neut % (Auto) Lymph % (Auto) [place] % (Auto) Eos % (Auto) Baso % (Auto) Lymph # (Auto) [place] # (Auto) Eos # (Auto) Baso # (Auto) Abs Immat Gran (auto) Absolute Neuts (auto) Absolute Nucleated RBC Nucleated RBC % (auto) Sodium Potassium Chloride Carbon Dioxide Anion Gap BUN Creatinine Estim Creat Clear Calc Estimated GFR Random Glucose Lactic Acid 1.8 Calcium Total Bilirubin Direct Bilirubin AST ALT Alkaline Phosphatase Total Protein Albumin Lipase Urine Color Yellow Urine Appearance Clear Urine pH >= 9.0 Ur Specific [place] 1.025 Urine Protein Trace Urine Glucose (UA) Negative Urine Ketones 40 Urine Blood Negative Urine Nitrite Negative Ur Leukocyte Esterase Negative Urine Test NEGATIVE COVID-19 (SYLVIA) COVID-19 Clin Com Airway Mallampati Class: II TM Dist: >3cm Neck ROM: Full Heart: rrr Assessment and Plan Assessment Anesthesia Assessment: Anesthesia Plan Discussed Final Anesthetic Review Family History of Problems with Anesthesia: No History of Problems with Anesthesia: No NPO: Yes ASA Class: II Final Preanesthetic Review: No Changes in Pt Med Stat, Meds/Allgs Chart Reviewed, Consent Obtained/Reviewed and Anes Risks/Benef Reviewed Patient Risk: Intermediate Procedure Risk: Intermediate Assessment/Block/Sedation in SS: Assess/Block/Sedation-SS Anesthetic Plan Anesthetic Plan: GA Disposition: Standard PACU
--- NOTE | 2022-12-26 13:52 | W.PM.OPN ---
Operative Note Operative Note Date of Service: 12/26/22 Narrative: Preoperative diagnosis: [] acute cholecystitis Postop diagnosis: [] same Procedure [] laparoscopic cholecystectomy , laparoscopic adhesiono lysis Surgeon: [] Navin [employer]: [] farhad [place] Type of Anesthesia: [] general Indication for surgery: [] morbidly obese abdomen. Markedly edematous turgid gallbladder which was significantly intrahepatic. Omental adhesions to the gallbladder. Incidental finding of umbilical adhesions from prior surgical procedure necessitating laparoscopic adhesion lysis to allow camera and Endo-Catch bag into the abdominal cavity. Findings: [] the patient was brought to the operating room, placed on the operating table in a supine position, after adequate level of general anesthesia was induced, the patient's abdomen which was markedly corpulent was prepped and draped in usual sterile fashion. Using an infraumbilical curvilinear incision from a prior scar from previous abdominal surgery, this is carried down To the fascia and Atkins technique used to insufflate the abdominal cavity to 15 mm of CO2. Upper midline and right subcostal ports were placed under direct laparoscopic view, and the patient was positioned in reverse Trendelenburg and tilted to the left. Markedly swollen/ turgid gall bladder was decompressed with an aspirating device In order to be grasped with laparoscopic graspers.. Gallbladder was very intrahepatic. Omental adhesions were taken off the gallbladder. Incidental Omenta ladhesions to the umbilical port were also taken down by repositioning the camera into 1 of the lateral ports and taken down the adhesions with [place] dissector. Gallbladder was then grasped using laparoscopic graspers, retracted superiorly and laterally. Cystic artery and cystic duct urgent each identified, circumferentially skeletonized and each traced directly to the gallbladder. Each was clipped proximally x2, distally x1, and transected. Markedly intrahepatic gallbladder was then cauterized from the gallbladder fossa using Bovie. Specimen was placed in an Endo-Catch bag, retrieved through the umbilical port. Abdominal cavity was very copiously irrigated, and secured hemostasis. All ports were removed under direct laparoscopic view. Wounds were closed in the following manner; umbilical wound had its fascia reapproximated using interrupted 0 Vicryl sutures. Skin wounds were closed using subcuticular 4-0 Vicryl sutures followed by Steri-Strips and sterile dressings. Wounds were infiltrated 0.5% Marcaine at completion of the procedure procedure. Sponge, needle, and instrument counts were reported to be correct. Patient tolerated the procedure well and emerged anesthesia stable condition. EBL minimal
--- NOTE | 2022-12-26 14:05 | MHC.CM.PN ---
PT WAS IN [facility] THEN DC HOME. NOT SEEN BY CM FOR INTAKE.
--- NOTE | 2022-12-26 14:13 | HO.POSTANES ---
Post Anesthesia Evaluation Post Anesthesia Evaluation Date of Service: 01/02/23 Vital Signs: Vital Signs Temp Pulse Resp BP Pulse Ox O2 Del Method 12/26/22 11:11 97.3 F 90 20 146/94 H 98 Room Air 12/26/22 10:00 98.2 F 71 18 130/72 98 Room Air 12/26/22 08:00 98.1 F 72 16 128/77 98 Room Air 12/26/22 07:23 98.2 F 79 16 130/74 98 Room Air 12/26/22 05:18 98 F 60 18 130/62 98 Room Air Anesthesia: Regional Mental Status: Awake Pain Control: Satisfactory Nausea/Vomiting: None Anesthesia-Related Issues: No Anes. Related Issues
[2022-12-26] MEDS: oxyCODONE HCl Immed Release 5 MG TABLET PO (14:30)
[2022-12-26] MEDS: fentaNYL citrate/PF 100 MCG/2 ML VIAL 25 MCG IVPUSH ×4 (14:30→15:05)
--- NOTE | 2023-01-06 10:59 | P.DS_ITS ---
DS: Providers Provider Date of Service: 12/26/22 Date of admission: 12/26/22 07:15 Date of discharge: 12/26/22 Primary care physician: Lizzie Schwarz MD Attending physician on admission: Kendrick Holden Attending physician on discharge: Kendrick Holden DS: Diagnosis Discharge Diagnosis (1) Acute cholecystitis: Status: Acute DS: Summary Hospital Course Hospital Course: HPI AT ADMISSION: Anand Geiger is a 27 year old female Presents with approximately 2 day history of progressively worsening epigastric right upper quadrant pain radiating around to her back.? She has social nausea vomiting.? S he has no other GI issues or complaints.? She is tolerating a diet.? She is having normal bowel habits.? Patient has never been jaundiced before.?Chart was reviewed patient evaluated, most noteworthy for pediatric congenital heart surgery HOSPITAL COURSE: Clinical evaluation and sonographic studies were consistent with acute cholecystitis.? It was recommended to proceed with laparoscopic cholecystectomy possible open and she agreed to proceed. She was added onto the OR schedule for that day. On 12/26/22 a laparoscopic cholecystectomy was performed by Dr. Holden without complication. The patient tolerated the procedure well. She was doing well in PACU and was tolerating a solid diet with good pain control. She was ambulating without difficulty. She felt ready for discharge to home. She was discharged on 12/26/22 in stable condition. She is to follow up with Dr. Holden in 1 week in the office. Time Spent with Patient Time attestation: Total time managing care of this patient today ____ minutes. Discharge coordination time: Less than 30 minutes Quality: Safe Use of Opioids Does Pt have an Active Cancer Diagnosis on the Problem List?: No Quality: Stroke Does the patient have a stroke diagnosis?: No Physical Exam Vital Signs: Vital Signs: Last Vital Signs Temp 98.7 F 12/26/22 15:30 Pulse 75 12/26/22 15:30 Resp 19 12/26/22 15:30 BP 146/89 H 12/26/22 15:30 Pulse Ox 98 12/26/22 15:30 O2 Del Method Room Air 12/26/22 15:30 O2 Flow Rate 4 12/26/22 14:15 BMI result Body Mass Index 39.9 Const: General: comfortable, no acute distress and alert Orientation/consciousness: patient oriented x3 Resp: Effort & Inspection: normal respiratory effort GI: Inspection: No distended and Yes incision (dressings c/d/i) Palpation (GI): Soft to palpation Skin: General skin exam: no rashes or lesions noted and no jaundice Neuro: General: patient oriented x3 DS: Data Data Completed and Pending Completed studies during hospitalization [Text1]: 12/26/22 13:44 Surgical [PTH] Routine Gallbladder, cholecystectomy:? -Subacute on chronic cholecystitis.? -Cholelithiasis.? -Benign reactive periductal lymph node. Procedures Release Peritoneum, Percutaneous Endoscopic Approach (12/26/22) Resection of Appendix, Percutaneous Endoscopic Approach (12/26/22) Discharge Plan Discharge Anticipated Discharge Date/Time: 12/27/22 12:02 Patient Disposition: Home, Self-Care Discharge Diagnosis: acute cholecystitis s/p lap dayne Referrals: Kendrick Holden MD [Physician] - 1 Week Lizzie Schwarz MD [Primary Care Provider] - 1 Week Discharge Medications: New docusate sodium [Colace] 100 mg capsule 100 mg PO BID Qty: 30 0RF Continued topiramate 25 mg tablet 25 mg PO BID diclofenac potassium 50 mg tablet 25 - 50 mg PO Q8H PRN (Reason: Migraine Headache) Discharge Orders: Discharge Order (Routine); Ordered 12/26/22 Ordered By: Kendrick Holden Diet: Low fat, low cholesterol Activity on Discharge: No heavy lifting Stand Alone Forms: Patient Portal Discharge page Activity Restrictions/Additional Instructions: Apply an ice pack for short intervals (20 minutes on, followed by at least 20 minutes off) for the first 2 days. Do not apply heat. Do not use creams, lotions, or topical antibiotics. These can cause infection or allergic reaction. Ok to shower 48 hours after your surgery. Remove dressings in 2 days and replace as needed. You have steri strips (small white cloth strips) covering your incision- these will fall off ~1 week. Follow up in office with Dr. Holden in 1 week. ([phone]) No heavy lifting (>10lbs) or strenuous activity! Call Your Doctor If: -Your temperature exceeds 101.5? F -You experience excessive pain or swelling -You have an unexpected reaction to medication -You have excessive bleeding -You experience continued vomiting/nausea -Your incision begins to separate -Your incision shows signs of infection such as increased redness, swelling, excessive pain, drainage (light blood or clear fluid is normal) or heat Care Plan Goals: Return to baseline health and resume normal activities following recovery period. Health Concerns: acute cholecystitis Plan of Treatment: s/p laparoscopic cholecystectomy f/u in office with Dr. Holden Assessment: Doing well post op Discharge Date/Time: 12/26/22 16:37
== END 2022-12-26 16:37 | disposition home or self-care (01) | DRG 425 ==
LOC: HO.ED 21:20 → HO.EDOVER 12-26 07:23
PROVIDERS: Nurse Practitioner Family; Physician Assistant; Admitting Provider Surgery; Emergency Provider Emergency Medicine; PCP Family Medicine; Visit Provider Surgery
PROC: 0FT44ZZ Resection of Gallbladder, Percutaneous Endoscopic Approach (ICD-10-PCS; CPT 47562; principal; 2022-12-26 13:50)
DX: K81.0 Acute cholecystitis (principal); G43.909 Migraine, unspecified, not intractable, without status migrainosus; K66.0 Peritoneal adhesions (postprocedural) (postinfection); Z20.822 Contact with and (suspected) exposure to COVID-19; Z79.899 Other long term (current) drug therapy
CPT/HCPCS: 36415; 76705; 80048; 80076; 81003; 81025; 83605; 83690; 85025; 87040; 87635; 88304; 99285; J0131; J0696; J1100; J1885; J2270; J2405; J2795; J3010

== ENCOUNTER → 2023-01-05 09:34 | Outpatient (BNVA) | payer OTHER, SELFPAY | PROVIDERS: PCP Family Medicine; Visit Provider Surgery ==

== ENCOUNTER 2023-01-05 15:09 | Outpatient (REF) | payer OTHER, SELFPAY ==
--- NOTE | ~2023-01-05 | XR_ITS ---
EXAMINATION: XR CHEST CLINICAL INFORMATION: Pulmonary embolism COMPARISON: Previous chest x-ray April [address] scan 01/05/2023 TECHNIQUE: Frontal view of the chest was obtained. FINDINGS: The cardiac and mediastinal contours are normal. There is subsegmental atelectasis in the right perihilar region. The lungs are otherwise clear. There is no pleural effusion or pneumothorax. Bony structures are unremarkable. XR/XR chest 1V IMPRESSION: Subsegmental atelectasis in the right perihilar region.
--- NOTE | ~2023-01-05 | NM_ITS ---
EXAMINATION: NM LUNG IMAGE PERFUSION CLINICAL INFORMATION: Reason for Exam I26.99 - Other pulmonary embolism without acute cor pulmonale Additional Notes/Special Instructions postop. Shortness of breath. Dizziness. Postop gallbladder surgery 12/26/2022 COMPARISON: Chest x-ray 01/05/2023 TECHNIQUE: 4 mCi technetium 99m MAA was injected intravenously. Multiple images obtained over the lungs. NM/NM pul perfusion FINDINGS/IMPRESSION: There is homogeneous perfusion of the right and left lung. No perfusion defect. No evidence of pulmonary embolism.
== END 2023-01-05 15:10 | disposition home or self-care (01) ==
LOC: HO.CT 15:09
PROVIDERS: PCP Family Medicine; Visit Provider Surgery
DX: I26.99 Other pulmonary embolism without acute cor pulmonale (principal)
CPT/HCPCS: 71045; 78580; A9540

== ENCOUNTER 2023-02-27 10:52 | Outpatient (REF) | payer OTHER, SELFPAY ==
[2023-02-27 13:07] LABS: MANUAL DIFF FLAG NO
[2023-02-27 13:33] LABS: Basophils Percent Auto 0.5 % (0-2); Eosinophils Absolute Auto 0.1 X10*3/uL (0.0-0.4); Eosinophils Percent Auto 1.2 % (0-4); Hematocrit 42.2 % (37.0-47.0); Hemoglobin 13.9 g/dl (12.0-16.0); Imm Gran Abs Auto 0.02 X10*3/uL (0.00-0.03); Imm Gran Pct Auto 0.3 % (0.0-0.4); Lymphocytes Absolute Auto 2.6 X10*3/uL (1.2-4.9); Lymphocytes Percent Auto 34.8 % (20-40); Mean Corpuscular HGB Conc 32.9 g/dl (31.0-35.0); Mean Corpuscular Hemoglobin 28.2 pg (27.0-33.0); Mean Corpuscular Volume 85.6 fL (80.0-98.0); Mean Platelet Volume 11.4 fL (9.4-12.3); Monocytes Absolute Auto 0.3 X10*3/uL (0.1-1.2); Monocytes Percent Auto 4.4 % (2-11); Neutrophils Absolute Auto 4.4 x10*3/uL (2.0-8.3); Neutrophils Percent Auto 58.8 % (45-73); Platelet Count 341 X10*3/uL (160-400); Red Blood Count 4.93 X10*6/uL (4.20-5.50); Red Cell Distribution Width 14.6 % (11.0-16.0); White Blood Count 7.4 X10*3/uL (4.8-10.8)
[2023-02-27 13:55] LABS: Cholesterol 147 mg/dL; HDL Cholesterol 39 mg/dL; LDL Cholesterol Calculated 98 mg/dl; Triglycerides 52 mg/dL
[2023-02-27 14:05] LABS: Estimated Average Glucose 105 mg/dL; Hemoglobin A1C 122.0234 umol/L; Hemoglobin A1c % 5.3 %
[2023-02-27 14:11] LABS: Alanine Aminotransferase 29 U/L (0-31); Albumin Level 4.4 g/dL (3.5-5.0); Alkaline Phosphatase 110 U/L (39-117); Anion Gap 18 (12-20); Aspartate Amino Transferase 19 U/L (5-31); Bilirubin Total 0.4 mg/dL (0.0-1.0); Blood Urea Nitrogen 12 mg/dL (9-16); Calcium 9.6 mg/dL (8.4-10.2); Carbon Dioxide 18 mmol/L (22-29); Chloride 105 mmol/L (96-108); Estimated Glomerular Filt Rate > 60; Glucose Fasting 83 mg/dL (60-99); Potassium 4.4 mmol/L (3.3-5.1); Sodium 137 mmol/L (135-145); Total Protein 7.7 g/dL (6.5-8.0)
[2023-02-27 14:13] LABS: Reflex LDLD? No
== END 2023-02-27 10:53 | disposition home or self-care (01) ==
LOC: HO.10HDL 10:52
PROVIDERS: Visit Provider Family Medicine
DX: Z00.00 Encounter for general adult medical examination without abnormal findings (principal); R10.32 Left lower quadrant pain; Q24.9 Congenital malformation of heart, unspecified; E66.9 Obesity, unspecified; Z13.1 Encounter for screening for diabetes mellitus; Z13.29 Encounter for screening for other suspected endocrine disorder
CPT/HCPCS: 36415; 80053; 80061; 83036; 84443; 85025

== ENCOUNTER 2023-04-10 08:21 | Outpatient (REF) | payer OTHER, SELFPAY ==
--- NOTE | ~2023-04-10 | US_ITS ---
EXAMINATION: US LOWER EXTREMITY VENOUS (REFLUX EXAM), BILATERAL CLINICAL INDICATION: Leg swelling COMPARISON: None. TECHNIQUE: Color flow triplex imaging and compression Doppler was performed to evaluate both the deep and the superficial systems bilaterally. To evaluate the superficial system, the examination was performed in the upright position. Color-flow Doppler ultrasound and compression ultrasound were utilized. In addition, maneuvers were utilized to demonstrate reflux. FINDINGS: RIGHT: 1. DEEP VENOUS ULTRASOUND OF THE RIGHT LOWER EXTREMITY: Common Femoral Vein: Compressible, normal respiratory variation and augmented flow. Popliteal Vein: Compressible, normal augmentation. Deep Venous Reflux: There is no evidence of reflux in the deep system in either the common femoral vein or the popliteal vein. There is no evidence of a Coats's cyst. 2. SUPERFICIAL ULTRASOUND WITH DOPPLER OF RIGHT LOWER EXTREMITY: RIGHT GREAT SAPHENOUS VEIN: Saphenofemoral Junction: 4 mm. No reflux. Proximal Thigh: 4 mm. No reflux. Mid Thigh: 3 mm. No reflux. Above Knee: 4 mm. No reflux. Below Knee: 3 mm. No reflux. Mid Calf: 2 mm. No reflux. Ankle: 2 mm. No reflux. DUPLICATED GREAT SAPHENOUS VEIN: Yes, laterally Saphenofemoral junction: 2 mm. No reflux. Mid thigh: Not seen RIGHT SMALL SAPHENOUS VEIN: Proximal: 6 mm. No reflux. Distal: 2 mm. No reflux. PERFORATORS: None LEFT: 1. DEEP VENOUS ULTRASOUND OF THE LEFT LOWER EXTREMITY: Common Femoral Vein: Compressible, normal respiratory variation and augmented flow. Popliteal Vein: Compressible, normal augmentation. Deep Venous Reflux: There is no evidence of reflux in the deep system in either the common femoral vein or the popliteal vein. There is no evidence of a Coats's cyst. 2. SUPERFICIAL ULTRASOUND WITH DOPPLER OF LEFT LOWER EXTREMITY: LEFT GREAT SAPHENOUS VEIN: Saphenofemoral Junction: 6 mm. No reflux. Proximal Thigh: 3 mm. No reflux. Mid Thigh: 3 mm. No reflux. Above Knee: 4 mm. No reflux. Below Knee: 3 mm. No reflux. Mid Calf: 3 mm. No reflux. Ankle: 3 mm. No reflux. DUPLICATED GREAT SAPHENOUS VEIN: None LEFT SMALL SAPHENOUS VEIN: Proximal: 2 mm. No reflux. Distal: 2 mm. No reflux. PERFORATORS: None US/US venous duplex LE BI IMPRESSION: No lower extremity varicose veins with abnormal reflux. No evidence of DVT. Abnormal lower extremity venous reflux times: Superficial and deep calf veins: >500 ms Femoropopliteal veins: >1000 ms Perforating veins: >350 ms Sarah N, Sergio J, Paola L, Pelon AK, Estevan SS, Carina Tolentino M, Pauly WH. Definition of venous reflux in lower-extremity veins.J Vasc Surg. 2003; [id number].
== END 2023-04-10 08:22 | disposition home or self-care (01) ==
LOC: HO.US 08:21
PROVIDERS: PCP Family Medicine; Visit Provider Family Medicine
DX: Q24.9 Congenital malformation of heart, unspecified (principal); M79.89 Other specified soft tissue disorders; R03.0 Elevated blood-pressure reading, without diagnosis of hypertension
CPT/HCPCS: 93970

== ENCOUNTER 2024-08-18 10:02 | Outpatient (REF) | payer OTHER, SELFPAY ==
[2024-08-18 11:16] LABS: MANUAL DIFF FLAG NO
[2024-08-18 11:22] LABS: Basophils Percent Auto 0.4 % (0-2); Eosinophils Absolute Auto 0.1 X10*3/uL (0.0-0.4); Eosinophils Percent Auto 1.7 % (0-4); Hematocrit 42.7 % (37.0-47.0); Hemoglobin 14.3 g/dl (12.0-16.0); Imm Gran Abs Auto 0.02 X10*3/uL (0.00-0.03); Imm Gran Pct Auto 0.3 % (0.0-0.4); Lymphocytes Absolute Auto 1.8 X10*3/uL (1.2-4.9); Lymphocytes Percent Auto 23.2 % (20-40); Mean Corpuscular HGB Conc 33.5 g/dl (31.0-35.0); Mean Corpuscular Hemoglobin 27.8 pg (27.0-33.0); Mean Corpuscular Volume 82.9 fL (80.0-98.0); Mean Platelet Volume 10.5 fL (9.4-12.3); Monocytes Absolute Auto 0.3 X10*3/uL (0.1-1.2); Monocytes Percent Auto 4.5 % (2-11); Neutrophils Absolute Auto 5.3 x10*3/uL (2.0-8.3); Neutrophils Percent Auto 69.9 % (45-73); Platelet Count 314 X10*3/uL (160-400); Red Blood Count 5.15 X10*6/uL (4.20-5.50); Red Cell Distribution Width 14.7 % (11.0-16.0); White Blood Count 7.6 X10*3/uL (4.8-10.8)
[2024-08-18 11:34] LABS: Estimated Average Glucose 120 mg/dL; Hemoglobin A1C 148.2004 umol/L; Hemoglobin A1c % 5.8 % (<6.0); Total Hemoglobin (HGBA1C) 3749.2658 umol/L
[2024-08-18 12:40] LABS: Alanine Aminotransferase 38 U/L (0-31); Albumin Level 4.3 g/dL (3.5-5.0); Alkaline Phosphatase 87 U/L (39-117); Anion Gap 9 (12-20); Aspartate Amino Transferase 24 U/L (5-31); Bilirubin Total 0.4 mg/dL (0.0-1.0); Blood Urea Nitrogen 11 mg/dL (9-16); Calcium 8.8 mg/dL (8.4-10.2); Carbon Dioxide 26 mmol/L (22-29); Chloride 109 mmol/L (96-108); Cholesterol 131 mg/dL (<200); Estimated Glomerular Filt Rate > 60; Glucose Random 118 mg/dL (60-115); HDL Cholesterol 39 mg/dL (>40); LDL Cholesterol Calculated 80 mg/dL (<100); Potassium 4.3 mmol/L (3.3-5.1); Sodium 140 mmol/L (135-145); TSH reflex Free T4 1.37 uIU/mL (0.32-4.0); Total Protein 7.8 g/dL (6.5-8.0); Triglycerides 63 mg/dL (<150)
[2024-08-18 12:51] LABS: Reflex LDLD? No
== END 2024-08-18 10:03 | disposition home or self-care (01) ==
LOC: HO.HHCL 10:02
PROVIDERS: Visit Provider Family Medicine
DX: R03.0 Elevated blood-pressure reading, without diagnosis of hypertension (principal); R42 Dizziness and giddiness; R73.03 Prediabetes; Q24.9 Congenital malformation of heart, unspecified
CPT/HCPCS: 36415; 80053; 80061; 83036; 84443; 85025

== ENCOUNTER 2025-04-20 15:20 | Outpatient (REF) | payer OTHER, SELFPAY ==
--- OUTSIDE RECORDS SUMMARY | 2025-04-20 15:00 | XMS_ITS | Encounter Summary ---
Author Organization [employer] Address [address] [facility] [address] [place] [address] Care Team Providers Care Asp Developer Name Role Phone Lizzie Schwarz MD Primary Care Provider [phone] Reason for Visit * Reason Comments Abdominal Pain Encounter Details Date Type Department Care Team ([facility] st Contact Info) Description 04/20/2025 3:00 PM EDT Office Visit [facility] [address] [place] [address] Epigastric pain (Primary Dx) Social History Tobacco Use Types Packs/Day Years Used Date Smoking Tobacco: Never Smokeless Tobacco: Never Alcohol Use Standard Drinks/Week Comments Never 0 (1 standard drink = 0.6 oz pur e alcohol) Depression Answer Date Recorded Patient Health Questionnaire-9 Score 9 08/18/2024 Patient Health Questionnaire-9 Score 9 08/18/2024 Last PHQ-9: Questionnaire Data Not on file 0 08/18/2024 Housing Stability Answer Date Recorded What is your housing situation today? I have housing today, but I am worried about losing housing in the future 08/18/[address] you li ve. Do you have problems with any of the following? None of the above 08/18/2024 Food Insecurity Answer Date Recorded Within the past 12 months, y ou worried that your food would run out before you got money to buy more: Never True 08/18/2024 Within the past 12 months,th e food you bought just didn't last and you didn't have enough money to get more: Never True Transportation Answer Date Recorded In the past 12 months, has l ack of transportation kept you from medical appts, meetings, work or from getting things needed for daily living? No 08/08/2024 Utilities Answer Date Recorded In the past 12 months, has t he electric, gas, oil or water company threatened to shut off services in your home? No 08/08/2024 Depression Answer Date Recorded Patient Health Questionnaire-2 Score 1 08/18/2024 Internet Access Answer Date Recorded Internet Access Q1 Yes 08/08/2024 Internet Access Q2 Not on file 08/08/2024 Comments Unknown Sex and Gender Information Value Date Recorded Sex Assigned at Female 06/02/2022 10:23 AM EDT Legal Sex Female 10:23 AM EDT Gender Identity Female 06/02/2022 10:23 AM EDT Sexual Orientation Straight 06/02/2022 10 :23 AM EDT documented as of this encounter Last Filed Vital Signs Vital Sign Reading Time Taken Comments Blood Pressure 128/90 04/20/2025 2:34 PM EDT Pulse 85 04/20/2025 2:34 PM EDT Temperature 36.7 C (98.1 F) 04/20/2025 2:34 PM EDT Respiratory Rate 18 04/20/2025 2:34 PM EDT Oxygen Saturation 100% 04/20/2025 2:34 PM EDT Inhaled Oxygen Concentration - - Weight 79.7 kg (175 lb 9.6 oz) 04/20/2025 2:34 P M EDT Height - - Body Mass Index 35.94 08/18/2024 9:20 AM EST documented in this encounter Plan of Treatment Scheduled Orders Name Type Priority Associated Diagnoses Orde r Schedule Helicobacter pylori, Urea Breath Test Lab Routine Epigastric pain Ordered: 04/20/2025 Hepatic Function Panel Lab Routine Epigastric pain Expected: 04/20/2025 (Approximate), Expires: 04/20/2026 CBC Lab Routine Epigastric pain Expected: 04/20/2025, Expires: 04/20/2026 Basic Metabolic Panel Lab Routine Epigastric pain Expected: 04/20/2025 (Approximate), Expires: 04/20/2026 Amylase Lab Routine Epigastric pain Expected: 04/20/2025 (Approximate), Expires: 04/20/2026 Lipase Lab Routine Epigastric pain Expected: 04/20/2025, Expires: 04/20/2026 documented as of this encounter Visit Diagnoses Diagnosis Epigastric pain- Primary Abdominal pain, epigastric documented in this encounter Additional Health Concerns Assessment Noted Time PHQ-9 Depression Total Score: 9 08/18/19 25 10:26 AM EST documented as of this encounter Care Teams Asp Developer Relationship Specialty Start Date End Date Lizzie Schwarz MD [address] [place] [address] PCP - General Family Medicine 03/20/22 documented as of this encounter
[2025-04-20 16:20] LABS: Hematocrit 45.3 % (37.0-47.0); Hemoglobin 14.9 g/dl (12.0-16.0); Mean Corpuscular HGB Conc 32.9 g/dl (31.0-35.0); Mean Corpuscular Hemoglobin 27.6 pg (27.0-33.0); Mean Corpuscular Volume 84.0 fL (80.0-98.0); NRBC Abs Auto 0.000 X10*3/uL (0.0-0.012); NRBC Pct Auto 0.0 /100WBC (0.0-0.2); PLT CLUMP 1; Red Blood Count 5.39 X10*6/uL (4.20-5.50)
--- OUTSIDE RECORDS SUMMARY | 2025-04-20 16:47 | XMS_ITS | Clinical Summary ---
Author Organization [employer] Address [address] [facility] [address] [place] [address] Care Team Providers Care Communications Department Chairperson Name Role Phone Lizzie Schwarz MD Primary Care Provider [phone] Allergies No known active allergies Medications Blood Pressure Monitor kit Check blood pressure once daily and as needed 1 kit 3 Active fluticasone (Flonase) 50 MCG/ACT nasal spray Administer 1 spray into each nostril in the morning. 16 g 4 Active Topiramate ER 25 MG capsule extended-release 24 hour sprinkle TAKE 1 CAPSULE BY MOUTH TWICE DAILY. 180 capsule 3 5 Active clotrimazole-bet amethasone (Lotrisone) cream Apply topically 2 times daily. 15 g 3 5 Active Tirzepatide-Weig ht Management (Zepbound) 2.5 MG/0.5ML solution auto-injectorInd ications:Class 3 severe obesity due to excess calories with serious comorbidity and body mass index (BMI) of 40.0 to 44.9 in adult Inject 0.5 mL (2.5 mg) under the skin 1 (one) time per week. 2 mL 11 5 Active omeprazole OTC (PriLOSEC OTC) 20 MG EC tablet Take 1 tablet (20 mg) by mouth before breakfast and before evening meal. Do not crush, chew, or split. 60 tablet 3 5 04/20/20 26 Active famotidine (Pepcid) 40 MG tablet Take 1 tablet (40 mg) by mouth at bedtime. 30 tablet 3 5 04/20/20 26 Active polycarbophil (Fibercon) 625 MG tablet Take 1 tablet (625 mg) by mouth 2 times daily. 60 tablet 3 5 04/20/20 26 Active Saccharomyces boulardii (probiotic) 250 MG capsule Take 1 capsule (250 mg) by mouth Once per day. 30 capsule 3 5 04/20/20 26 Active Active Problems Problem Noted Date Diagnosed Date Dizziness 08/18/2024 Assessment & Plan (08/18/2024 10:22 AM EST): - likely benign, yet not classic for BPPV - check lab - consider sleep study Status post appendectomy 08/18/2024 Tinea pedis 08/18/2024 Assessment & Plan (08/18/2024 10:24 AM EST): - antifungal topical Elevated blood pressure read ing without diagnosis of hypertension 03/22/2023 Overview (03/22/2023): - monitor home BP - lifestyle modifications Assessment & Plan (08/18/2024 2:03 PM EST): -Goal BP < 140/90 per JNC-8 and < 130/80 per ACC/AHA guideline (Treatment threshold >= 140/90 ) -BP borderline -Continue working on lifestyle modifications -Recommended self-monitoring BP. -Discussed about pharmacological treatment if home BP is elevated -Consider sleep study Assessment & Plan (03/22/2023 6:08 AM EDT): -Goal BP < 140/90 per JNC-8 and < 130/80 per ACC/AHA guideline (Treatment threshold >= 140/90 ) -BP borderline -Continue working on lifestyle modifications -Recommended self-monitoring BP. -Follow up in 3-6 mo, sooner if any problem arises Status post laparoscopic cholecystectomy 023 Assessment & Plan (03/22/2023 6:05 AM EDT): - 12/26/[address] Holden - no post-op complication Obesity 01/20/2023 Assessment & Plan (08/18/2024 10:21 AM EST): - 02/27/23 A1C 5.3%; lipid profile showed low HDL; normal TSH - Strong family history of obesity and metabolic syndrome - tried and failed phentermine - Will try GLP1-RA. - Encouraged to take topiramate everyday as it is known to have a favorable side effect of weight loss - Continue working on lifestyle modifications - Follow up in 3 mo Assessment & Plan (03/22/2023 6:16 AM EDT): - 02/27/23 A1C 5.3%; lipid profile showed low HDL; normal TSH - Strong family history of obesity and metabolic syndrome - Discussed about GLP-1 agonist, which is unlikely to get covered by her insurance - Will try phentermine - Encouraged to take topiramate everyday as it is known to have a favorable side effect of weight loss - Continue working on lifestyle modifications - Follow up in 3 mo Migraine headache 01/13/2023 Assessment & Plan (08/18/2024 9:54 AM EST): - evaluated by neurologistMarquez, on 06/30/22 and 10/17/22, safely discharged due to improvement and stability - CTA negative for aneurysm in Aug 2022 - Recommended by neurologist to continue topirmate 25 mg bid as prophylaxis and diclofenac 50 mg prn for abortive medication Assessment & Plan (03/22/2023 6:07 AM EDT): - evaluated by neurologistMarquez, on 06/30/22 and 10/17/22, safely discharged due to improvement and stability - CTA negative for aneurysm in Aug 2022 - Recommended by neurologist to continue topirmate 25 mg bid as prophylaxis and diclofenac 50 mg prn for abortive medication Assessment & Plan (01/13/2023 5:01 AM EDT): - evaluated by neurologistMarquez, on 06/30/22 and 10/17/22, safely discharged due to improvement and stability - CTA negative for aneurysm in Aug 2022 - Recommended by neurologist to continue topirmate 25 mg bid as prophylaxis and diclofenac 50 mg prn for abortive medication 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 Mccoy in May 2023. Cardiac MRI was ordered. - Echo on 05/19/23 Normal LVEF 60-65%. 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 She will dc Ibuprofen, will continue tramiflu as tolerated, or else can dc. Start Sucralfate AC meals + Zofran prn nausea/vomiting PO hydration, bland diet x 2d and advance as tolerated. Out of work for 2 more days. Influenza A 11/09/2023 08/17/2024 Assessment & Plan (11/12/2023 2:24 PM EDT): Resolving, afebrile > 24h Complete Tamiflu as tolerated. DC Ibuprofen/tylenol. Assessment & Plan (11/09/2023 10:00 AM EDT): Rx tamiflu x 5d Rest (sleep at least 8 hours a night). Out of work x 48h after starting Tamiflu Hydrate with plenty of water (avoid caffeine and alcohol). Use saline nose drops to loosen mucus Take Acetaminophen (Tylenol )/Ibuprofen as needed to reduce fever, headache, body aches or discomfort Gargle with salt water and use throat sprays/lozenges for throat pain. Use heated, humidified air. If you do not have a humidifier, take hot showers. Cover coughs and sneezes using the crook of your elbow. If you have a fever, stay home and away from others (self isolation) until fever-free for 72 hours (temperature should be less than 100 F without medication). Acute cholecystitis 01/06/2023 03/16/20 Assessment & Plan (01/13/2023 5:06 AM EDT): - 12/26/[address] Holden - Recovering Encounters Date Type Department Care Team Description 04/20/2025 3:00 PM EDT Office Visit [facility] [address], [place] [phone] Epigastric pain (Primary Dx) 04/20/2025 Travel 04/20/2025 Telephone [facility] [address] [place], [place] [phone] Lizzie Schwarz MD from Last 3 Months Immunizations Immunization Administration Dates Next Due DTaP 11/08/2002, 9,03/12/1998,12/26,1997 DTaP / HiB / IPV 12/07/1998, 8,1997,10/30 HPV, Quadrivalent 04/23/2011,12/10/2009,07/09/20 09 Hep A, Adult 11/05/2016 Hep A, Unspecified 10/30/2015 Hep A, ped/adol, 2 dose 11/05/2016,10/30/2015 Hep B, Adolescent or Pediatric 6,03/12/1998,1997,08/28 Hib (PRP-T) 12/07/1998, 8,1997,10/30 IPV 11/08/2002, 8,1997,10/30 Influenza Injectable Quadriv alant Preservative Free IIV4 MDCK 06/26/2020 Influenza injectable quadriv alent IIV4 with preservative 10/30/2015,07/03/2014 Influenza injectable quadriv alent preservative free 06/10/2022 Influenza, IIV3, injectable 10/30/2015,1 09/09/2008,07/05/2008,08/10 Influenza, Split (incl. sam fied surface antigen) 07/11/2013,07/20/2012,04/23/2011,08/10 Influenza, seasonal, injecta ble, preservative free 08/18/2024 MMR 10/05/2001,09/11/1998 Meningococcal MCV4P ACYW-135 10/30/2015,07/09/20 09 Novel [id number], all formulations 07/09/2009 OPV, Trivalent 1997 Tdap 11/09/2018,07/09/2009 Varicella 07/05/2008,12/07/1998 Family History Medical History Relation Name Comments Asthma Brother Sumit Migraines Brother Sumit Arthritis Father Sumit Asthma Father Sumit Depression Father Sumit Diabetes Father Sumit Diabetes type II Father Sumit Stroke Maternal Grandfather Luis COPD Maternal Grandmother June Emphysema Maternal Grandmother June Miscarriages / Stillbirths Maternal Grandmother Anasta raven Arthritis Mother Susan Asthma Mother Susan Depression Mother Susan Diabetes Mother Susan Diabetes type II Mother Susan Hypertension Mother Susan Miscarriages / Stillbirths Mother Susan Stroke Mother Susan Relation Name Status Comments Brother Sumit Father Sumit Maternal Grandfather Luis Maternal Grandmother June Mother Susan Social History Tobacco Use Types Packs/Day Years Used Date Smoking Tobacco: Never Smokeless Tobacco: Never Tobacco Cessation:Counseling Given: Not Answered Alcohol Use Standard Drinks/Week Comments Never 0 [...] Orientation Straight 06/02/2022 10 :23 AM EDT Last Filed Vital Signs Vital Sign Reading [...] oz) 04/20/2025 2:34 P M EDT Height 148.9 cm (4' 10.61 ) 08/18/2024 9:[address] Body Mass Index 35.94 08/18/2024 9:20 AM EST Plan of Treatment Health Maintenance Due Date Last Done Comments HIV Screening 1997 Family Planning (PISQ) 2012 Hepatitis C Screening 2015 Pap Smear 04/11/2022 04/11/2019 Depression Monitoring 02/15/2025 08/18/2024, 025 COVID-19 Vaccine ( season) 2025 11/28/2020, 11/07/2020 Influenza Vaccine (#1) 2025 , 05/27/2023, 06/10/2022, Additional history exists Alcohol/Substance Use Screening 07/06/2025 07/06/2024 Disability Screening 08/17/2025 08/17/2024 Diabetes: Hemoglobin A1C 08/18/2025 025, 02/27/2023, 03/20/2022 SDOH Screening 08/18/2025 08/18/2024 Tobacco Screening 08/23/2025 08/23/2024 DTaP/Tdap/Td Vaccines (8 - Td or Tdap) 11/09/2028 11/09/2018, 07/09/2009, 11/08/2002, Additional history exists Lipid Panel 08/18/2029 08/18/2024, 02/01, 03/20/2022 Zoster Vaccines (1 of 2) 2047 RSV Patients and Patients Aged 60 years or older (1 - 1-dose 75+ series) 2072 HIB Vaccines Completed 12/07/1998, 01/1999, 03/12/1998, Additional history exists IPV Vaccines Completed 11/08/2002, 0 01/1999, 03/12/1998, Additional history exists HPV Vaccines Completed 04/23/2011, 12/01, 07/09/2009 Hepatitis B Vaccines Completed 10/11/2015, 03/12/1998, 1997, Additional history exists Meningococcal Vaccine Completed 10/30/2015, 009 Hepatitis A Vaccines Completed 11/05/2016, 11/05/2016, 10/30/2015, Additional history exists Meningococcal B Vaccine Aged Out No l onger eligible based on patient's age to complete this topic Pneumococcal Vaccine: Pediatrics (0 to 5 Years) and At-Risk Patients (6 to 49) Years Aged Out No longer eligible based on patient's age to complete this topic RSV under 20 months Aged Out No longe r eligible based on patient's age to complete this topic Rotavirus Vaccines Aged Out No longer eligible based on patient's age to complete this topic Procedures Procedure Name Priority Date/Time Associated Diagnosis Comments HEMOGLOBIN A1C Routine 08/18/2024 10:05 AM EST Prediabetes LIPID PANEL WITH REFLEX TO DIRECT LDL Routine 08/18/2024 10:05 AM EST Congenital anomaly of heart HM PAP/HPV Routine 04/11/2019 from Last 3 Months or Most Recently Relevant to Health Maintenance Results * (ABNORMAL) Lipid Panel with Reflex to Direct LDL (08/18/2024 10:05 AM EST) Triglycerides 63 <150 mg/dL [facility] Comment:Desirable Triglyceri de: less than 150 mg/dLBorderline High Triglyceride 150-199 mg/dLHigh Triglyceride: 200-499 mg/dLVery High Triglyceride: greater than or equal to 5OO mg/dL Cholesterol 131 <200 mg/dL [facility] Comment:Desirable Cholestero l: less than 200 mg/dLBorderline High Cholesterol: 200-239 mg/dLHigh Cholesterol: greater than 239 mg/dL LDL Cholesterol Calculated 80 <100 mg/dL [facility] Comment:Desirable LDL: less than 100 mg/dLNear Optimal/Above Optimal LDL: 110- 129 mg/dLBorderline High LDL: 130-159 mg/dLHigh LDL: 160-189 mg/dLVery High LDL: greater than or equal to 190 mg/dL HDL Cholesterol 39(L) >40 mg/dL [facility] Comment:Desirable HDL: great er than 40 mg/dL Note: This HDL assay may give artificially low results in patients with liver disease. Blood 08/18/2024 10:0 5 AM EST 08/18/2024 11:12 AM EST us Lizzie Schwarz MD LAB BLOOD ORDERABLES Final Resul t Performing Organization Address [facility] Co de Phone Number [facility] [address] [place] [address] [phone] * Hemoglobin A1c (08/18/2024 10:05 AM EST) Hemoglobin A1c 5.8 <6.0 % [facility] Comment:Hemoglobin A1C Refer ence Range Adults: 4.8 - 6.0 % Non diabetic: < 6.0 % Goal: < 7.0 %Additional Action Suggested: > 8.0 %Note: Hemoglobin A1c results are invalid for patients with abnormal amounts of HbF. Blood transfusions may impact the HbA1c concentration in the patient sample. Estimated Average Glucose 120 mg/dL [facility] Comment:eAG = Estimated ave rage glucose which is %A1C expressed asaverage glucose, using the formula of the Z4L-QheolebZroxtjv Glucose study (ADAG), Diabetes Care, Vol.31,#8,Mar. 2007 Blood Venous blood specimen / Unknown 08/18/2024 10:05 AM EST 08/18/2024 11:12 AM EST Lizzie Schwarz MD LAB BLOOD ORDERABLES Final Resul t Performing Organization Address [facility] Co de Phone Number [facility] [address] [place] [address] [phone] * Hm Pap Smear (04/11/2019) Pap Negative for intraephithelial lesion or malignancy Negative for intraephithelial lesion or malignancy, Other Historical Provider HEALTH MAINTENANCE Final Result from Last 3 Months or Most Recently Relevant to Health Maintenance Insurance [employer] Care Teams Communications Department Chairperson Relationship Specialty Start Date End Date Lizzie Schwarz MD [address] [place] [address] PCP - General Family Medicine 03/20/22
--- OUTSIDE RECORDS SUMMARY | 2025-04-20 16:47 | XMS_ITS | Encounter Summary ---
Author Organization [employer] Address [address] [facility] [address] [place] [address] Care Team Providers Care Filament Maker Name Role Phone Lizzie Schwarz MD Primary Care Provider [phone] Encounter Details Date Type Department Care Team (Late st Contact Info) Description 10/14/2023 Orders Only [facility] [address] [place] [address] Lizzie Schwarz MD [address] [place] [address] Postoperative scar; H/O major cardiovascular surgery Social History Tobacco Use Types Packs/Day Years Used Date Smoking Tobacco: Never Smokeless Tobacco: Never Alcohol Use Standard Drinks/Week Comments Never 0 (1 standard drink = 0.6 oz pur e alcohol) Depression Answer Date Recorded Patient Health Questionnaire-9 Score 0 01/13/2023 Housing Stability Answer Date Recorded What is your housing situation today? I have chaostephany singh 05/28/[address] you li ve. Do you have problems with any of the following? None of the above 05/28/2023 Food Insecurity Answer Date Recorded Within the past 12 months, y ou worried that your food would run out before you got money to buy more: Never True 05/28/2023 Within the past 12 months,th e food you bought just didn't last and you didn't have enough money to get more: Never True Transportation Answer Date Recorded In the past 12 months, has l ack of transportation kept you from medical appts, meetings, work or from getting things needed for daily living? No 05/28/2023 Utilities Answer Date Recorded In the past 12 months, has t he electric, gas, oil or water company threatened to shut off services in your home? No 05/28/2023 Depression Answer Date Recorded Patient Health Questionnaire-2 Score 0 01/13/2023 Comments Unknown Sex and Gender Information Value Date Recorded Sex Assigned at Female 06/02/2022 10:23 AM EDT Legal Sex Female 10:23 AM EDT Gender Identity Female 06/02/2022 10:23 AM EDT Sexual Orientation Straight 06/02/2022 10 :23 AM EDT documented as of this encounter Plan of Treatment Not on file documented as of this encounter Visit Diagnoses Diagnosis Postoperative scar H/O major cardiovascular surgery documented in this encounter Additional Health Concerns Assessment Noted Time PHQ-9 Depression Total Score: 0 01/14/20 23 9:42 AM EDT documented as of this encounter Care Teams Filament Maker Relationship Specialty Start Date End Date Lizzie Schwarz MD [address] [place] [address] PCP - General Family Medicine 03/20/22 documented as of this encounter
--- OUTSIDE RECORDS SUMMARY | 2025-04-20 16:47 | XMS_ITS | Encounter Summary ---
Author Organization [facility] Address [address] [place] [phone] Phone Care Team Providers Care Radiation Control Technician Name Role Phone Minerva Campbell HAND SPRING REPAIRER HELPER Primary Care Provider Eliu [place] Encounter Details Date Type Department Care Team (Late st Contact Info) Description 03/23/2017 Documentation [facility] [address] [place] [address] Family Medicine, Physician [address] [place] [address] Social History Tobacco Use Types Packs/Day Years Used Date Smoking Tobacco: Never Comments:Never smoker Comments Unknown Sex and Gender Information Value Date Recorded Sex Assigned at Not on file Legal Sex Female 5:24 PM EDT Gender Identity Not on file Sexual Orientation Not on file documented as of this encounter Plan of Treatment Not on file documented as of this encounter Visit Diagnoses Not on filedocumented in this encounter Care Teams Radiation Control Technician Relationship Specialty Start Date End Date Minerva Campbell NP PCP - General 03/13/17 01/07/23 documented as of this encounter
--- OUTSIDE RECORDS SUMMARY | 2025-04-20 16:47 | XMS_ITS | Encounter Summary ---
Author Organization [facility] Address [address] [place] [phone] Phone Care Team Providers Care Liquor Blender Name Role Phone Minerva Campbell EDUCATION INSTRUCTOR Primary Care Provider Eliu [place] Encounter Details Date Type Department Care Team (Late st Contact Info) Description 07/10/2014 Documentation [facility] Family Medicine [address] [place], [place] [phone] Family Medicine, Physician [address] [place] [address] Social History Tobacco Use Types Packs/Day Years Used Date Smoking Tobacco: Never Assessed Comments Unknown Sex and Gender Information Value Date Recorded Sex Assigned at Not on file Legal Sex Female 5:24 PM EDT Gender Identity Not on file Sexual Orientation Not on file documented as of this encounter Plan of Treatment Not on file documented as of this encounter Visit Diagnoses Not on filedocumented in this encounter Care Teams Liquor Blender Relationship Specialty Start Date End Date Minerva Campbell NP PCP - General 03/13/17 01/07/23 documented as of this encounter
--- OUTSIDE RECORDS SUMMARY | 2025-04-20 16:47 | XMS_ITS | Encounter Summary ---
Author Organization [facility] Address [address] [place] [phone] Phone Care Team Providers Care Client Hr Manager Name Role Phone Minerva Campbell DIE FINISHER Primary Care Provider Eliu [place] Encounter Details Date Type Department Care Team (Late st Contact Info) Description 04/19/2014 Documentation [facility] Family Medicine [address] [place], [place] [phone] Family Medicine, Physician [address] [place] [address] Social History Tobacco Use Types Packs/Day Years [...] on filedocumented in this encounter Care Teams Client Hr Manager Relationship Specialty Start Date End Date Minerva Campbell NP PCP - General 03/13/17 01/07/23 documented as of this encounter
--- OUTSIDE RECORDS SUMMARY | 2025-04-20 16:47 | XMS_ITS | Encounter Summary ---
Author Organization [facility] Address [address] [place] [phone] Phone Care Team Providers Care Collection Administrator Name Role Phone Minerva Campbell WORLD TRAVEL COUNSELOR Primary Care Provider Eliu [place] Encounter Details Date Type Department Care Team (Late st Contact Info) Description 11/13/2009 Documentation [facility] [place] [facility] [address] [place], [place] [phone] Family Medicine, Physician [address] [place] [address] Social History Tobacco Use Types Packs/Day Years [...] on filedocumented in this encounter Care Teams Collection Administrator Relationship Specialty Start Date End Date Minerva Campbell NP PCP - General 03/13/17 01/07/23 documented as of this encounter
--- OUTSIDE RECORDS SUMMARY | 2025-04-20 16:47 | XMS_ITS | Encounter Summary ---
Author Organization [facility] Address [address] [place] [address] Phone Care Team Providers Care Tray Packer Name Role Phone Minerva Campbell WARP STARTER Primary Care Provider Eliu [place] Encounter Details Date Type Department Care Team (Late st Contact Info) Description 11/06/2016 Documentation [facility] [place] [facility] Family Medicine [address] [place] [address] Family Medicine, Physician [address] [place] [address] Social History Tobacco Use Types Packs/Day Years [...] on filedocumented in this encounter Care Teams Tray Packer Relationship Specialty Start Date End Date Minerva Campbell NP PCP - General 03/13/17 01/07/23 documented as of this encounter
--- OUTSIDE RECORDS SUMMARY | 2025-04-20 16:47 | XMS_ITS | Encounter Summary ---
Author Organization [employer] Address [address] [facility] [address] [place] [address] Care Team Providers Care Handbag Operator Name Role Phone Lizzie Schwarz MD Primary Care Provider Encounter Details Date Type Department Care Team (Late st Contact Info) Description 04/20/2025 Telephone [facility] [address] [place] [address] Lizzie Schwarz MD [address] [place] [address] Social History Tobacco Use Types Packs/Day Years [...] AM EDT documented as of this encounter Miscellaneous Notes * Telephone Encounter - Sarah Ramirez RN - 04/20/2025 12:40 PM EDT Called pt. RE: incoming pt. Portal message about stomach concerns. Pt. States that x 2 weeks pt. Will eat and then she will get stomach pain. After every meal pt. Hasto take tums, pepto bismul but, still has an upset stomach. Pt. Has acid reflux and gets diarrhea on and off. Pt. States that on the top of her stomach- mid to top of esophagus she gets pain daily and acid reflux all day. Pt. Has tried to prop pillows at night to sleep which helps. No nausea and novomiting, no trouble swallowing or breathing. Advised to not eat any spicy foods and to stop eating at least 2 hours prior to bedtime. Protocol Used: Abdominal Pain - Upper (Adult) Protocol-Based Disposition: See in Office or Video Visit Today- Hours of operation and days open [facility] walk in given to pt. As she does not want to leave work for appt. Video visit offer not recorded Positive Triage Questions: * Patient wants to be seen * Mild pain that comes and goes (cramps) > 72 hours (Exception: This same abdominal pain is a chronic symptom recurrent or ongoing AND present > 4 weeks.) * Abdominal pain is a chronic symptom (recurrent or ongoing AND lasting > 4 weeks) * Intermittent pains shoot into chest, with sour taste in mouth (Exception: Symptoms same as previously diagnosed reflux and not tried antacids.) * All higher-acuity triage questions were negative Care Advice Discussed: * Antacid Medicine * Drink Clear Fluids * Diet * Avoid Aspirin and NSAIDs * Stop Smoking * Food Recommendations to Reduce Reflux documented in this encounter Plan of Treatment Not on file documented as of this encounter Visit Diagnoses Not on filedocumented in this encounter Additional Health Concerns Assessment Noted Time PHQ-9 Depression Total Score: 9 08/18/19 25 10:26 AM EST documented as of this encounter Care Teams Handbag Operator Relationship Specialty Start Date End Date Lizzie Schwarz MD [address] [place] [address] PCP - General Family Medicine 03/20/22 documented as of this encounter
--- OUTSIDE RECORDS SUMMARY | 2025-04-20 16:47 | XMS_ITS | Encounter Summary ---
Author Organization [facility] Address [address] [place] [address] Phone Care Team Providers Care Ct Scan Special Procedures Technologist Name Role Phone Minerva Campbell FEATHER BONER Primary Care Provider Eliu blum Encounter Details Date Type Department Care Team (Late st Contact Info) Description 04/11/2014 Documentation [facility] [place] Family Medicine [address] [place], [place] [phone] Family Medicine, Physician [address] [place] [address] Social History Tobacco Use Types Packs/Day Years [...] on filedocumented in this encounter Care Teams Ct Scan Special Procedures Technologist Relationship Specialty Start Date End Date Minerva Campbell NP PCP - General 03/13/17 01/07/23 documented as of this encounter
--- OUTSIDE RECORDS SUMMARY | 2025-04-20 16:47 | XMS_ITS | Encounter Summary ---
Author Organization [employer] Address [address] [facility] [address] [place] [address] Care Team Providers Care Air Traffic Control Operator Name Role Phone Lizzie Schwarz MD Primary Care Provider [phone] Encounter Details Date Type Department Care Team (Latest Contact Info) Description 04/20/2025 Travel Social History Tobacco Use Types Packs/Day Years [...] documented as of this encounter Care Teams Air Traffic Control Operator Relationship Specialty Start Date End Date Lizzie Schwarz MD [address] [place] [address] PCP - General Family Medicine 03/20/22 documented as of this encounter
--- OUTSIDE RECORDS SUMMARY | 2025-04-20 16:47 | XMS_ITS | Encounter Summary ---
Author Organization [facility] Address [address] [place] [address] Phone Care Team Providers Care Member Of Technical Staff Name Role Phone Minerva Campbell RETAIL FINANCIAL ANALYST Primary Care Provider Eliu blum Encounter Details Date Type Department Care Team (Late st Contact Info) Description 08/16/2014 Documentation [facility] [place] [address] [place], [place] [phone] Family Medicine, Physician [address] [place] [address] Social History Tobacco Use Types Packs/Day Years [...] on filedocumented in this encounter Care Teams Member Of Technical Staff Relationship Specialty Start Date End Date Minerva Campbell NP PCP - General 03/13/17 01/07/23 documented as of this encounter
--- OUTSIDE RECORDS SUMMARY | 2025-04-20 16:47 | XMS_ITS | Clinical Summary ---
Author Organization [facility] Address [address] [place] [address] Phone Care Team Providers Care Jockey Agent Name Role Phone Unavailable Primary Care Provider Unavailabl e Immunizations Immunization Administration Dates Next Due DTaP 5 11/08/2002, 9,03/12/1998, 998,1997 H1N1 07/09/2009 HPV, Quadrivalent 04/23/2011,12/10/2009,07/09/20 09 Hep A 10/30/2015 Hep A, Adult 11/05/2016 Hep A, ped/adol 10/30/2015 Hep B, ped/adol 10/11/2015, 8,1997, 998 Hib (PRP-T) 12/07/1998, 8,1997, 998 IPV 11/08/2002,03/12/1998,1997 Influenza Split 07/11/2013, 2,04/23/2011, 001 Influenza, injectable, quadrivalent 10/30/2015,1 09/03/2013 Influenza, injectable, trivalent 07/09/2009,10/2007,08/10/2000 MMR 10/05/2001,09/11/1998 Meningococcal Conj (Menactra) MCV4P 10/30/2015,1 09/09/2008 OPV 1997 Tdap 07/09/2009 Varicella 07/05/2008,12/07/1998 Family History Relation Name Status Comments Brother Brother: Asthma Father Father: Asthma Mother Alive Mother: Asthma, Migraines, Hypertension Other Family history of ADD/ADHD, No family history of Developmental dislocation of hip, Family history of *Sudden /DE under 55, Family history of Migraines, Family history of *Heart Disease, Family history of Seizure disorder, Family history of *CVA/Stroke, Family history of Obesity, Family history of Diabetes mellitus, Family history of Asthma, No family history of Deafness, No family history of Hyperlipidemia, No family history of Cancer Social History Tobacco Use Types Packs/Day Years Used Date Smoking Tobacco: Never Comments:Never smoker Comments Unknown Sex and Gender Information Value Date Recorded Sex Assigned at Not on file Legal Sex Female 5:24 PM EDT Gender Identity Not on file Sexual Orientation Not on file Last Filed Vital Signs Vital Sign Reading Time Taken Comments Blood Pressure 109/79 12/03/2016 12:00 AM EDT Pulse 85 12/03/2016 12:00 AM EDT Temperature 36.7 C (98.1 F) 03/08/2014 12:00 AM EDT Respiratory Rate - - Oxygen Saturation - - Inhaled Oxygen Concentration - - Weight 71.5 kg (157 lb 9.6 oz) 12/03/2016 12:00 AM EDT Height 146.7 cm (4' 9.75 ) 11/05/2016 12:00 AM E DT Body Mass Index 33.22 11/05/2016 12:00 AM EDT Plan of Treatment Health Maintenance Due Date Last Done Comments Influenza Vaccines (#1) 2025 06/10/20, 06/26/2020, 10/30/2015, Additional history exists COVID-19 Vaccine ( season) 2025 DTaP,Tdap,and Td Vaccines (8 - Td or Tdap) 11/09/2028 11/09/2018, 07/09/2009, 11/08/2002, Additional history exists HIB Vaccines Completed 12/07/1998, 01/1999, 03/12/1998, Additional history exists MMR Vaccines Completed 10/05/2001, 09/11/1998 IPV Vaccines Completed 11/08/2002, 01/1999, 03/12/1998, Additional history exists Varicella Vaccines Completed 07/05/2008, 12/07/1998 HPV Vaccines Completed 04/23/2011, 12/01, 07/09/2009 Hepatitis B Vaccines Completed 10/11/2015, 03/12/1998, 1997, Additional history exists Meningococcal Vaccine Completed 10/30/2015, 009 Hepatitis A Vaccines Completed 11/05/2016, 10/30/2015, 10/30/2015 Men B Vaccine Aged Out No longer elig ible based on patient's age to complete this topic Pneumococcal Vaccine Aged Out No long er eligible based on patient's age to complete this topic
--- OUTSIDE RECORDS SUMMARY | 2025-04-20 16:47 | XMS_ITS | Encounter Summary ---
Author Organization [facility] Address [address] [place] [address] Phone Care Team Providers Care Manipulator Operator Name Role Phone Minerva Campbell ASSEMBLER CAMPER Primary Care Provider Eliu blum Encounter Details Date Type Department Care Team (Late st Contact Info) Description 08/16/2014 Documentation [place] Family Medicine [address] [place], [place] [phone] Family Medicine, Physician [address] [place] [address] Social History Tobacco Use Types Packs/Day Years [...] on filedocumented in this encounter Care Teams Manipulator Operator Relationship Specialty Start Date End Date Minerva Campbell NP PCP - General 03/13/17 01/07/23 documented as of this encounter
--- OUTSIDE RECORDS SUMMARY | 2025-04-20 16:47 | XMS_ITS | Encounter Summary ---
Author Organization [facility] Address [address] [place] [address] Phone Care Team Providers Care Crm Functional Analyst Name Role Phone Minerva Campbell TROUT FARMER Primary Care Provider Eliu blum Encounter Details Date Type Department Care Team (Late st Contact Info) Description 08/16/2014 Documentation [facility] [facility] [place] [address] [place], [place] [phone] Family Medicine, Physician [address] [place] [address] Social History Tobacco Use Types Packs/Day Years [...] on filedocumented in this encounter Care Teams Crm Functional Analyst Relationship Specialty Start Date End Date Minerva Campbell NP PCP - General 03/13/17 01/07/23 documented as of this encounter
--- OUTSIDE RECORDS SUMMARY | 2025-04-20 16:47 | XMS_ITS | Encounter Summary ---
Author Organization [facility] Address [address] [place] [address] Phone Care Team Providers Care Visitor Services Assistant Name Role Phone Minerva Campbell OUTBOUND SUPERVISOR Primary Care Provider Eliu blum Encounter Details Date Type Department Care Team (Late st Contact Info) Description 03/19/2017 Conversion Encounter [facility] - [address] [address] Social History Tobacco Use Types Packs/Day Years [...] on filedocumented in this encounter Care Teams Visitor Services Assistant Relationship Specialty Start Date End Date Minerva Campbell NP PCP - General 03/13/17 01/07/23 documented as of this encounter
--- OUTSIDE RECORDS SUMMARY | 2025-04-20 16:47 | XMS_ITS | Encounter Summary ---
Author Organization [facility] Address [address] [place] [address] Phone Care Team Providers Care Boat Garnisher Name Role Phone Minerva Campbell INSURANCE VERIFICATION CLERK Primary Care Provider Eliu blum Encounter Details Date Type Department Care Team (Late st Contact Info) Description 08/16/2014 Documentation [facility] [place] Family Medicine [address] [place], [place] [phone] Family Medicine, Physician [address] [place] [address] Social History Tobacco Use Types Packs/Day Years [...] on filedocumented in this encounter Care Teams Boat Garnisher Relationship Specialty Start Date End Date Minerva Campbell NP PCP - General 03/13/17 01/07/23 documented as of this encounter
--- OUTSIDE RECORDS SUMMARY | 2025-04-20 16:47 | XMS_ITS | Encounter Summary ---
Author Organization [facility] Address [address] [place] [address] Phone Care Team Providers Care Chair Car Attendant Name Role Phone Minerva Campbell TRIMMING CASER Primary Care Provider Eliu blum Encounter Details Date Type Department Care Team (Late st Contact Info) Description 08/16/2014 Documentation [facility] [place] Family Medicine [address] [place], [place] [phone] Family Medicine, Physician [address] [place] [address] Social History Tobacco Use Types Packs/Day Years [...] on filedocumented in this encounter Care Teams Chair Car Attendant Relationship Specialty Start Date End Date Minerva Campbell NP PCP - General 03/13/17 01/07/23 documented as of this encounter
--- OUTSIDE RECORDS SUMMARY | 2025-04-20 16:47 | XMS_ITS | Encounter Summary ---
Author Organization [facility] Address [address] [place] [address] Phone Care Team Providers Care Resource Agent Name Role Phone Minerva Campbell CYLINDER INSPECTOR AND TESTER Primary Care Provider Eliu blum Encounter Details Date Type Department Care Team (Late st Contact Info) Description 08/16/2014 Documentation [facility] [place] [address] [place], [place] [phone] Family Medicine, Physician [address] [place] [address] Social History Tobacco Use Types Packs/Day Years [...] on filedocumented in this encounter Care Teams Resource Agent Relationship Specialty Start Date End Date Minerva Campbell NP PCP - General 03/13/17 01/07/23 documented as of this encounter
[2025-04-20 17:08] LABS: Platelet Count 236 X10*3/uL (160-400); White Blood Count 7.0 X10*3/uL (4.8-10.8)
[2025-04-20 17:30] LABS: Alanine Aminotransferase 37 U/L (0-31); Albumin Level 4.6 g/dL (3.5-5.0); Alkaline Phosphatase 93 U/L (39-117); Anion Gap 14 (12-20); Aspartate Amino Transferase 55 U/L (5-31); Blood Urea Nitrogen 12 mg/dL (9-16); Calcium 9.3 mg/dL (8.4-10.2); Carbon Dioxide 22 mmol/L (22-29); Chloride 110 mmol/L (96-108); Estimated Glomerular Filt Rate > 60; Lipase 25 U/L (8-78); Potassium 5.8 mmol/L (3.3-5.1); Sodium 140 mmol/L (135-145); Total Protein 8.4 g/dL (6.5-8.0)
[2025-04-20 17:37] LABS: Amylase 39 U/L (28-100)
== END 2025-04-20 15:21 | disposition home or self-care (01) ==
LOC: HO.HHCL 15:20
PROVIDERS: PCP Family Medicine; Visit Provider Family Medicine
DX: R10.13 Epigastric pain (principal)
CPT/HCPCS: 36415; 80048; 80076; 82150; 83013; 83690; 85027

== ENCOUNTER 2025-04-21 12:34 | Outpatient (REF) | payer OTHER, SELFPAY ==
--- OUTSIDE RECORDS SUMMARY | 2025-04-20 15:00 | XMS_ITS | Encounter Summary ---
Author Organization [employer] Address [address] [facility] [address] [place] [address] Care Team Providers Care Embosser Apprentice Name Role Phone Lizzie Schwarz MD Primary Care Provider [phone] Reason for Referral * Imaging (Routine) - Authorized Specialty Diagnoses / Procedures Referred By Minoo jackson Referred To Contact Radiology Diagnoses Epigastric pain Procedures US Abdomen Complete Zaria James DO [address] [place] [address] Phone: tel: fax: [address] Phone: tel: fax: Referral ID Status Reason Start Date Expiration Date V isits Requested Visits Authorized [id number] Authorized 04/20/2025 04/20/2026 1 1 Reason for Visit * Reason Comments Abdominal Pain Encounter Details Date Type Department Care Team (Late st Contact Info) Description 04/20/2025 3:00 PM EDT Office Visit [facility] [address] [place], [place] [phone] Zaria James DO [address] [place], [place] [phone] Epigastric pain (Primary Dx); Alternating constipation and [...] Test Lab Routine Epigastric pain Ordered: 04/20/2025 US Abdomen Complete Imaging Routine Epigastric pain [...] Routine 04/20/2025 3:30 PM EDT Epigastric pain documented in this encounter Results * Lipase (04/20/2025 3:30 PM EDT) Lipase 25 8 - 78 U/L [facility] Blood Venous blood specimen / Unknown 04/20/2025 3:30 PM EDT 04/20/2025 4:03 PM EDT [employer] LAB BLOOD ORDERABLES Final R esult Performing Organization Address City/[facility]/ZIP Co de Phone Number [facility] [address] [place] [address] [phone] * Amylase (04/20/2025 3:30 PM EDT) Pathologist [facility] Amylase 39 28 - 100 U/L [facility] Comment:Moderate Hemolysis.I nterpret result with caution. Blood Venous blood specimen / Unknown 04/20/2025 3:30 PM EDT 04/20/2025 4:03 PM EDT [employer] LAB BLOOD ORDERABLES Final R esult Performing Organization Address City/[facility]/ZIP Co de Phone Number [facility] [address] [place] [phone] * (ABNORMAL) Basic Metabolic Panel (04/20/2025 3:30 PM EDT) Pathologist [facility] Sodium 140 135 - 145 mmol/L [facility] Potassium 5.8(H) 3.3 - 5.1 mmol/L [facility] Comment:Moderate Hemolysis.I nterpret result with caution. Chloride 110(H) 96 - 108 mmol/L [facility] Carbon Dioxide 22 22 - 29 mmol/L [facility] Anion Gap 14 12 - 20 [facility] Urea Nitrogen (BUN) 12 9 - 16 mg/dL [facility] Creatinine, Serum 0.68 0.5 - 1.4 mg/dL [facility] Estimated Glomerular Filt Rate >60 [facility] Comment:Chronic Kidney Disea se: Estimated GFR < 60 mL/min/1.25b3Zxogpo Kidney Disease: Estimated GFR < 15 mL/min/1.73m2 Glucose 76 60 - 115 mg/dL [facility] Calcium 9.3 8.4 - 10.2 mg/dL [facility] Blood Venous blood specimen / Unknown 04/20/2025 3:30 PM EDT 04/20/2025 4:03 PM EDT us Zaria James DO LAB BLOOD ORDERABLES Final R esult [facility] [address] [place] [phone] * (ABNORMAL) CBC (04/20/2025 3:30 PM EDT) White Blood Count 7.0 4.8 - 10.8 X10*3/uL [facility] Red Blood Count 5.39 4.20 - 5.50 X10*6/uL [facility] Hemoglobin 14.9 12.0 - 16.0 g/dl [facility] Hematocrit 45.3 37.0 - 47.0 % [facility] Mean Corpuscular Volume 84.0 80.0 - 98.0 fL [facility] Mean Corpuscular Hemoglobin 27.6 27.0 - 33.0 pg [facility] Mean Corpuscular HGB Conc 32.9 31.0 - 35.0 g/dl [facility] Red Cell Distribution Width 16.8(H) 11.0 - 16.0 % [facility] Platelet Count 236 160 - 400 X10*3/uL [facility] Mean Platelet Volume 11.1 9.4 - 12.3 fL [facility] NRBC Pct Auto 0.0 0.0 - 0.2 /100WBC [facility] NRBC Abs Auto 0.000 0.0 - 0.012 X10*3/uL [facility] Blood Venous blood specimen / Unknown 04/20/2025 3:30 PM EDT 04/20/2025 4:14 PM EDT us Zaria James DO LAB BLOOD ORDERABLES Final R esult Performing Organization Address City/[facility]/ZIP Co de Phone Number [facility] [address] [place] [phone] * (ABNORMAL) Hepatic Function Panel (04/20/2025 3:30 PM EDT) Bilirubin, Total 0.6 0.0 - 1.0 mg/dL [facility] Bilirubin, Direct 0.1 0.0 - 0.5 mg/dL [facility] Aspartate Amino Transferase 55(H) 5 - 31 U/L [facility] Comment:Moderate Hemolysis.I nterpret result with caution. Alanine Aminotransferase 37(H) 0 - 31 U/L [facility] Total Protein 8.4(H) 6.5 - 8.0 g/dL [facility] Comment:Moderate Hemolysis.I nterpret result with caution. Albumin Level 4.6 3.5 - 5.0 g/dL [facility] Alkaline Phosphatase 93 39 - 117 U/L [facility] Blood Venous blood specimen / Unknown 04/20/2025 3:30 PM EDT 04/20/2025 4:03 PM EDT us Zaria James DO LAB BLOOD ORDERABLES Final R esult [facility] [address] [place] [phone] [phone] documented in this encounter Visit Diagnoses Diagnosis Epigastric pain- Primary Abdominal pain, epigastric Alternating constipation and diarrhea documented in this encounter Additional Health Concerns Assessment Noted Time PHQ-9 Depression Total Score: 9 08/18/19 25 10:26 AM EST documented as of this encounter Care Teams Embosser Apprentice Relationship Specialty Start Date End Date Lizzie Schwarz MD [address] [place] [phone] PCP - General Family Medicine 03/20/22 documented as of this encounter
--- OUTSIDE RECORDS SUMMARY | 2025-04-21 12:37 | XMS_ITS | Encounter Summary ---
Author Organization [facility] Address [address] [place] [address] Phone Care Team Providers Care Beef Selector Name Role Phone Minerva Campbell SODA COLUMN OPERATOR Primary Care Provider Eliu blum Encounter Details Date Type Department Care Team (Late st Contact Info) Description 03/23/[address] [facility] [place] Family [place] [address] [place] [address] Family Medicine, Physician [address] [place] [address] Social History Tobacco Use Types Packs/Day Years [...] on filedocumented in this encounter Care Teams Beef Selector Relationship Specialty Start Date End Date Minerva Campbell NP PCP - General 03/13/17 01/07/23 documented as of this encounter
--- OUTSIDE RECORDS SUMMARY | 2025-04-21 12:37 | XMS_ITS | Encounter Summary ---
Author Organization [facility] Address [address] [place] [address] Phone Care Team Providers Care Websphere Commerce Developer Name Role Phone Minerva Campbell OPTICS TEST TECHNICIAN Primary Care Provider Eliu blum Encounter Details Date Type Department Care Team (Late st Contact Info) Description 08/16/2014 Documentation [facility] [place] Family Medicine [address] [place], [place] [phone] Family Medicine, Physician [address] [place] [address] Social History Tobacco Use Types Packs/Day Years [...] on filedocumented in this encounter Care Teams Websphere Commerce Developer Relationship Specialty Start Date End Date Minerva Campbell NP PCP - General 03/13/17 01/07/23 documented as of this encounter
--- OUTSIDE RECORDS SUMMARY | 2025-04-21 12:37 | XMS_ITS | Encounter Summary ---
Author Organization [facility] Address [address] [place] [address] Phone Care Team Providers Care Bacteriology Professor Name Role Phone Minerva Campbell QUALITY ENGINEERING MANAGER Primary Care Provider Eliu blum Encounter Details Date Type Department Care Team (Late st Contact Info) Description 08/16/2014 Documentation [facility] [place] [address] [place], [place] [phone] Family Medicine, Physician [address] [place] [address] Social History Tobacco Use Types Packs/Day Years [...] on filedocumented in this encounter Care Teams Bacteriology Professor Relationship Specialty Start Date End Date Minerva Campbell NP PCP - General 03/13/17 01/07/23 documented as of this encounter
--- OUTSIDE RECORDS SUMMARY | 2025-04-21 12:37 | XMS_ITS | Encounter Summary ---
Author Organization [facility] Address [address] [place] [address] Phone Care Team Providers Care Senior Java Web Application Developer Name Role Phone Minerva Campbell OUTREACH TEAM MEMBER Primary Care Provider Eliu blum Encounter Details Date Type Department Care Team (Late st Contact Info) Description 04/11/2014 Documentation [facility] [place] [address] [place], [place] [phone] Family Medicine, Physician [address] [place] [address] Social History Tobacco Use Types Packs/Day Years [...] on filedocumented in this encounter Care Teams Senior Java Web Application Developer Relationship Specialty Start Date End Date Minerva Campbell NP PCP - General 03/13/17 01/07/23 documented as of this encounter
--- OUTSIDE RECORDS SUMMARY | 2025-04-21 12:37 | XMS_ITS | Encounter Summary ---
Author Organization [facility] Address [address] [place] [address] Phone Care Team Providers Care Rubber Worker Name Role Phone Minerva Campbell ADVANCED SOLUTIONS ARCHITECT Primary Care Provider Eliu blum Encounter Details Date Type Department Care Team (Late st Contact Info) Description 11/06/2016 Documentation [facility] [place] Family Medicine [address] [place] [address] Family Medicine, Physician [address] [place] [address] Social History Tobacco Use Types Packs/Day Years [...] on filedocumented in this encounter Care Teams Rubber Worker Relationship Specialty Start Date End Date Minerva Campbell NP PCP - General 03/13/17 01/07/23 documented as of this encounter
--- OUTSIDE RECORDS SUMMARY | 2025-04-21 12:37 | XMS_ITS | Encounter Summary ---
Author Organization [facility] Address [address] [place] [address] Phone Care Team Providers Care Instructional Developer Name Role Phone Minerva Campbell EQUIPMENT SPECIALIST Primary Care Provider Eliu blum Encounter Details Date Type Department Care Team (Late st Contact Info) Description 11/13/[address] [facility] [place] Family Medicine [address] [place], [place] [phone] Family Medicine, Physician [address] [place] [address] Social History Tobacco Use Types Packs/Day Years [...] on filedocumented in this encounter Care Teams Instructional Developer Relationship Specialty Start Date End Date Minerva Campbell NP PCP - General 03/13/17 01/07/23 documented as of this encounter
--- OUTSIDE RECORDS SUMMARY | 2025-04-21 12:37 | XMS_ITS | Clinical Summary ---
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 Mccoy in May 2023. Cardiac MRI was ordered. - Echo on 05/19/23 Normal LVEF 60-65%. 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12 - evaluated by [facility] in Jun 2022, negative stress test [...] Encounters Date Type Department Care Team Description 04/21/2025 Telephone [facility] [address] [place] [phone] Zaria James DO Results 04/20/2025 3:00 PM EDT Office Visit [facility] [address] [place] [phone] Zaria James DO Epigastric pain (Primary Dx); Alternating constipation and diarrhea 04/20/2025 Travel 04/20/2025 Telephone [facility] [address] [place] [phone] Lizzie Schwarz MD from Last 3 Months [...] 10/05/2001,09/11/1998 Meningococcal MCV4P [id number]-135 10/30/2015,07/09/20 09 Novel [id number], all formulations 07/09/2009 OPV, Trivalent 1997 Tdap [...] Additional history exists IPV Vaccines Completed 11/08/2002, 01/1999, 03/12/1998, Additional history exists HPV Vaccines [...] Procedure Name Priority Date/Time Associated Diagnosis Comments LIPASE Routine 04/20/2025 3:30 PM EDT Epigastric pain AMYLASE Routine 04/20/2025 3:30 PM EDT Epigastric pain BASIC METABOLIC PANEL Routine 04/20/2025 3:30 PM EDT Epigastric pain CBC Routine 04/20/2025 3:30 PM EDT Epigastric pain HEPATIC FUNCTION PANEL Routine 04/20/2025 3:30 PM EDT Epigastric pain HEMOGLOBIN A1C Routine 08/18/2024 10:05 AM EST Prediabetes LIPID PANEL WITH REFLEX TO DIRECT LDL Routine 08/18/2024 10:05 AM EST Congenital anomaly of heart HM PAP/HPV Routine 04/11/2019 from Last 3 Months or Most Recently Relevant to Health Maintenance Results * (ABNORMAL) CBC (04/20/2025 3:30 PM EDT) White Blood Count 7.0 4.8 - 10.8 X10*3/uL [facility] Red Blood Count 5.39 4.20 - 5.50 X10*6/uL [facility] Hemoglobin 14.9 12.0 - 16.0 g/dl [facility] Hematocrit 45.3 37.0 - 47.0 % [facility] Mean Corpuscular Volume 84.0 80.0 - 98.0 fL [facility] Mean Corpuscular Hemoglobin 27.6 27.0 - 33.0 pg [facility] Mean Corpuscular HGB Conc 32.9 31.0 - 35.0 g/dl [facility] Red Cell Distribution Width 16.8(H) 11.0 - 16.0 % [facility] Platelet Count 236 160 - 400 X10*3/uL [facility] Mean Platelet Volume 11.1 9.4 - 12.3 fL [facility] NRBC Pct Auto 0.0 0.0 - 0.2 /100WBC [facility] NRBC Abs Auto 0.000 0.0 - 0.012 X10*3/uL [facility] Blood Venous blood specimen / Unknown 04/20/2025 3:30 PM EDT 04/20/2025 4:14 PM EDT Zaria James DO LAB BLOOD ORDERABLES Final R esult [facility] [address] [place] [phone] * Lipase (04/20/2025 3:30 PM EDT) Lipase 25 8 - 78 U/L [facility] Blood Venous blood specimen / Unknown 04/20/2025 3:30 PM EDT 04/20/2025 4:03 PM EDT aZria James DO LAB BLOOD ORDERABLES Final R esult Performing Organization Address City/[facility]/ZIP Co de Phone Number [facility] [address] [place] [address] [phone] * Amylase (04/20/2025 3:30 PM EDT) Amylase 39 28 - 100 U/L [facility] Comment:Moderate Hemolysis.I nterpret result with caution. Blood Venous blood specimen / Unknown 04/20/2025 3:30 PM EDT 04/20/2025 4:03 PM EDT Zaria James LAB BLOOD ORDERABLES Final R esult Performing Organization Address City/[facility]/ZIP Co de Phone Number [facility] [address] [place] [phone] * (ABNORMAL) Hepatic Function Panel (04/20/2025 3:30 PM EDT) Bilirubin, Total 0.6 0.0 - 1.0 mg/dL [facility] Bilirubin, Direct 0.1 0.0 - 0.5 mg/dL [facility] Aspartate Amino Transferase 55(H) 5 - 31 U/L [facility] Comment:Moderate Hemolysis.I nterpret result with caution. Alanine Aminotransferase 37(H) 0 - 31 U/L [facility] Total Protein 8.4(H) 6.5 - 8.0 g/dL [facility] Comment:Moderate Hemolysis.I nterpret result with caution. Albumin Level 4.6 3.5 - 5.0 g/dL [facility] Alkaline Phosphatase 93 39 - 117 U/L [facility] Blood Venous blood specimen / Unknown 04/20/2025 3:30 PM EDT 04/20/2025 4:03 PM EDT Zaria James DO LAB BLOOD ORDERABLES Final R esult [facility] [address] [place] [phone] [phone] * (ABNORMAL) Basic Metabolic Panel (04/20/2025 3:30 PM EDT) Sodium 140 135 - 145 mmol/L [facility] Potassium 5.8(H) 3.3 - 5.1 mmol/L [facility] Comment:Moderate Hemolysis.I nterpret result with caution. Chloride 110(H) 96 - 108 mmol/L [facility] Carbon Dioxide 22 22 - 29 mmol/L [facility] Anion Gap 14 12 - 20 [facility] Urea Nitrogen (BUN) 12 9 - 16 mg/dL [facility] Creatinine, Serum 0.68 0.5 - 1.4 mg/dL [facility] Estimated Glomerular Filt Rate >60 [facility] Comment:Chronic Kidney Disea se: Estimated GFR < 60 mL/min/1.60p0Ippeyx Kidney Disease: Estimated GFR < 15 mL/min/1.73m2 Glucose 76 60 - 115 mg/dL [facility] Calcium 9.3 8.4 - 10.2 mg/dL [facility] Blood Venous blood specimen / Unknown 04/20/2025 3:30 PM EDT 04/20/2025 4:03 PM EDT us Zaria James DO LAB BLOOD ORDERABLES Final R esult [facility] [address] [place], [place] [phone] * (ABNORMAL) Lipid Panel with Reflex to Direct LDL (08/18/2024 10:05 AM EST) Triglycerides 63 <150 mg/dL [facility] Comment:Desirable Triglyceri de: less than 150 mg/dLBorderline High Triglyceride 150-199 mg/dLHigh Triglyceride: 200-499 mg/dLVery High Triglyceride: greater than or equal to 5OO mg/dL Cholesterol 131 <200 mg/dL [facility] Comment:Desirable Cholestero l: less than 200 mg/dLBorderline High Cholesterol: 200-239 mg/dLHigh Cholesterol: greater than 239 mg/dL LDL Cholesterol Calculated 80 <100 mg/dL [facility] Comment:Desirable LDL: less than 100 mg/dLNear Optimal/Above Optimal LDL: 110- 129 mg/dLBorderline High LDL: 130-159 mg/dLHigh LDL: 160-189 mg/dLVery High LDL: greater than or equal to 190 mg/dL HDL Cholesterol 39(L) >40 mg/dL [facility] Comment:Desirable HDL: great er than 40 mg/dL Note: This HDL assay may give artificially low results in patients with liver disease. Blood 08/18/2024 10:0 5 AM EST 08/18/2024 11:12 AM EST Lizzie Schwarz MD LAB BLOOD ORDERABLES Final Resul t Performing Organization Address [facility] Co de Phone Number [facility] [address] [place] [phone] * Hemoglobin A1c (08/18/2024 10:05 AM EST) Hemoglobin A1c 5.8 <6.0 % [facility] Comment:Hemoglobin A1C Refer ence Range Adults: 4.8 - 6.0 % Non diabetic: < 6.0 % Goal: < 7.0 %Additional Action Suggested: > 8.0 %Note: Hemoglobin A1c results are invalid for patients with abnormal amounts of HbF. Blood transfusions may impact the HbA1c concentration in the patient sample. Estimated Average Glucose 120 mg/dL [facility] Comment:eAG = Estimated ave rage glucose which is %A1C expressed asaverage glucose, using the formula of the X1A-PkvzcapKylrflp Glucose study (ADAG), Diabetes Care, Vol.31,#8,Mar. 2007 Blood Venous blood specimen / Unknown 08/18/2024 10:05 AM EST 08/18/2024 11:12 AM EST Lizzie Schwarz MD LAB BLOOD ORDERABLES Final Resul t Performing Organization Address [facility] Co de Phone Number [facility] [address] [place] [phone] * Hm Pap Smear (04/11/2019) Pap Negative for intraephithelial lesion or malignancy Negative for intraephithelial lesion or malignancy, Other Historical Provider HEALTH MAINTENANCE Final Result from Last 3 Months or Most Recently Relevant to Health Maintenance Insurance [employer] Care Teams Insurance Loss Adjuster Relationship Specialty Start Date End Date Lizzie Schwarz MD [address] [place] [phone] PCP - General Family Medicine 03/20/22
--- OUTSIDE RECORDS SUMMARY | 2025-04-21 12:37 | XMS_ITS | Encounter Summary ---
Author Organization [facility] Address [address] [place] [phone] Phone Care Team Providers Care Cover Stripper Name Role Phone Minerva Campbell GLASS DECORATOR Primary Care Provider Eliu blum Encounter Details Date Type Department Care Team (Late st Contact Info) Description 08/16/2014 Documentation [facility] [place] [address] [place], [place] [phone] Family Medicine, Physician [address] [place] [address] Social History Tobacco Use Types Packs/Day Years [...] on filedocumented in this encounter Care Teams Cover Stripper Relationship Specialty Start Date End Date Minerva Campbell NP PCP - General 03/13/17 01/07/23 documented as of this encounter
--- OUTSIDE RECORDS SUMMARY | 2025-04-21 12:37 | XMS_ITS | Encounter Summary ---
Author Organization [facility] Address [address] [place] [phone] Phone Care Team Providers Care Parts Representative Name Role Phone Minerva Campbell SCALER PACKER Primary Care Provider Eliu blum Encounter Details Date Type Department Care Team (Late st Contact Info) Description 08/16/2014 Documentation [facility] Family Medicine [address] [place], [place] [phone] Family Medicine, Physician [address] [place] [address] Social History Tobacco Use Types Packs/Day Years [...] on filedocumented in this encounter Care Teams Parts Representative Relationship Specialty Start Date End Date Minerva Campbell NP PCP - General 03/13/17 01/07/23 documented as of this encounter
--- OUTSIDE RECORDS SUMMARY | 2025-04-21 12:37 | XMS_ITS | Encounter Summary ---
Author Organization [employer] Address [address] [facility] [address] [place] [address] Care Team Providers Care Freight Car Loader Name Role Phone Lizzie Schwarz MD Primary Care Provider [phone] Encounter Details Date Type Department Care Team (Late st Contact Info) Description 04/20/2025 Telephone [facility] [address] [place] [address] Lizzie Schwarz MD [address] [place] [address] Social History Tobacco Use Types Packs/Day Years [...] Hours of operation and days open [facility] walk in given to pt. As she [...] documented as of this encounter Care Teams Freight Car Loader Relationship Specialty Start Date End Date Lizzie Schwarz MD [address] [place] [address] PCP - General Family Medicine 03/20/22 documented as of this encounter
--- OUTSIDE RECORDS SUMMARY | 2025-04-21 12:37 | XMS_ITS | Encounter Summary ---
Author Organization [email or web address] Address [address] [facility] [address] [place] [address] Care Team Providers Care Shrink Pit Operator Name Role Phone Lizzie Schwarz MD Primary Care Provider [phone] Reason for Visit * Reason Onset Date Comments Results 04/21/2025 Encounter Details Date Type Department Care Team ([facility] st Contact Info) Description 04/21/2025 Telephone [facility] [address] [place] [address] Zaria James DO [address] [place] [address] Results Social History Tobacco Use Types Packs/Day Years [...] encounter Miscellaneous Notes * Telephone Encounter - Kathy Barr RN - 04/21/2025 12:27 PM EDT Incoming call from patient in regards to below message. Patient verbalized understanding and reports she will repeat the BW today. Patient advised she will receive a call with any abnormal results. Patient to f/u PRN. * Telephone Encounter - Kathy Barr RN - 04/21/2025 11:13 AM EDT BW results reviewed with ordering provider (Dr. James). BW with interpretation note of moderate hemolysis and elevated potassium. Dr. James would like patient to repeat potassium level today ifpossible. TC placed to patient [phone] to inform of above however patient did not answer, RN left requesting CB to red team nurses. RN will re-attempt in PM. documented in this encounter Plan of Treatment Scheduled Orders Name Type Priority Associated Diagnoses Orde r Schedule Potassium Lab Routine Serum potassium elevated Expected: 04/21/2025, Expires: 04/21/2026 documented as of this encounter Visit Diagnoses Diagnosis Serum potassium elevated Hyperpotassemia documented in this encounter Additional Health Concerns Assessment Noted Time PHQ-9 Depression Total Score: 9 08/18/19 25 10:26 AM EST documented as of this encounter Care Teams Shrink Pit Operator Relationship Specialty Start Date End Date Lizzie Schwarz MD [address] [place] [address] PCP - General Family Medicine 03/20/22 documented as of this encounter
--- OUTSIDE RECORDS SUMMARY | 2025-04-21 12:37 | XMS_ITS | Encounter Summary ---
Author Organization [facility] Address [address] [place] [phone] Phone Care Team Providers Care Group Director Experience Name Role Phone Minerva Campbell GUEST SERVICES ASSOCIATE Primary Care Provider Eliu blum Encounter Details Date Type Department Care Team (Late st Contact Info) Description 03/19/2017 Conversion Encounter [facility] - [address] [address] Social History Tobacco Use Types Packs/Day Years [...] on filedocumented in this encounter Care Teams Group Director Experience Relationship Specialty Start Date End Date Minerva Campbell NP PCP - General 03/13/17 01/07/23 documented as of this encounter
--- OUTSIDE RECORDS SUMMARY | 2025-04-21 12:37 | XMS_ITS | Clinical Summary ---
Author Organization [facility] Address [address] [place] [phone] Phone Care Team Providers Care Environmental Technology Professor Name Role Phone Unavailable Primary Care Provider [...] dislocation of hip, Family history of *Sudden /[place] under 55, Family history of Migraines, Family [...]
--- OUTSIDE RECORDS SUMMARY | 2025-04-21 12:37 | XMS_ITS | Encounter Summary ---
Author Organization [facility] Address [address] [place] [address] Care Team Providers Care Radar Systems Engineer Name Role Phone Marcia Garza MD Primary Care Provider Yosvany Downing Primary Care Provider Marcia Padgett MD Primary Care Provider Ratna crow Encounter Details Date Type Department Care Team Description 06/23/2017 [facility] Medical Records [address] [place] [phone] Abstract, Provider Social History Tobacco Use Types Packs/Day Years Used Date Smoking Tobacco: Never Smokeless Tobacco: Never Alcohol Use Standard Drinks/Week Comments No 0 (1 standard drink = 0.6 oz pur e alcohol) Sex Assigned at Date Recorded Not on file documented as of this encounter Plan of Treatment Not on file documented as of this encounter Visit Diagnoses Not on filedocumented in this encounter Care Teams Radar Systems Engineer Relationship Specialty Start Date End Date Marcia Garza MD PCP - General Internal Medicine 06/17/17 11/09/18 Yosvany Feldman PCP - General Pediatrics 11/10/18 08/26/20 Marcia Garza MD PCP - General Internal Medicine 08/27/20 documented as of this encounter
--- OUTSIDE RECORDS SUMMARY | 2025-04-21 12:37 | XMS_ITS | Clinical Summary ---
Author Organization [facility] Address [address] [place] [address] Care Team Providers Care Certified Pest Control Technician Name Role Phone Marcia Garza MD Primary Care Provider Unasofía ilable Allergies No known active allergies Medications Medication Sig Dispensed Refills Start Date End Date Status carbamide peroxide (DEBROX) 6.5 % otic solution Place 5 Drops into both ears 2 times daily for 10 days. Tilt head so ear to be treated points towards the ceiling. Hold medication in ear using part of a cotton ball. 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 Immunizations Name Administration Dates Next Due DTaP 11/08/2002, 9,03/12/1998,1997,10/03 [id number] 12/07/1998,03/12/1998,1997 ,1997 HIB 12/07/1998,03/12/1998,1997 ,1997 HPV (Gardasil) 04/23/2011,12/10/2009,07/09/2009 Hepatitis A-2 dose (<19yrs) 11/05/2016, 6 Hepatitis B-3 Dose (<19yrs) 10/11/2015, 8,1997,1997 Hepatitis-A (>19YRS) 11/05/2016 Influenza (> 6 Months) 10/30/2015 MMR (Ksrayjx-Srxyl-Yxzeoim) 10/05/2001, 9 Meningococcal (Menactra) 10/30/2015,07/09/2009 Polio (IPV) 11/08/2002,03/12/1998,1997 ,1997 Tdap 11/09/2018,07/09/2009 Varicella 07/05/2008,12/07/1998 Family History Medical History Relation Name Comments Migraines Brother Asthma Father osteoporosis; a rthritis; carpel tunnel No Known Problems Maternal Grandfather lung issue Maternal Grandmother Migraines Mother asthma, HTN, ce rebral bleed; carpel tunnel No Known Problems Paternal Grandfather No Known Problems Paternal Grandmother CA Breast Negative Hx CA Colon Negative Hx CA Ovarian Negative Hx Relation Name Status Comments Brother Alive Father Alive Maternal Grandfather Alive Maternal Grandmother Mother Alive Paternal Grandfather Alive Paternal Grandmother Alive Social History Tobacco Use Types Packs/Day Years Used Date Smoking Tobacco: Never Smokeless Tobacco: Never Alcohol Use Standard Drinks/Week Comments No 0 (1 standard drink = 0.6 oz pur e alcohol) Sex Assigned at Date Recorded Not on file Last Filed Vital Signs Vital Sign Reading Time Taken Comments Blood Pressure 110/72 09/26/2020 2:58 PM EST Pulse 90 09/26/2020 2:58 PM EST Temperature 37.4 C (99.3 F) 09/26/2020 2:58 PM EST Respiratory Rate 14 09/26/2020 2:58 PM EST Oxygen Saturation 97% 09/26/2020 2:58 PM EST Inhaled Oxygen Concentration - - Weight 85.1 kg (187 lb 9.6 oz) 09/26/2020 2:58 P M EST Height 144.8 cm (4' 9 ) 09/26/2020 2:58 PM EST Body Mass Index 40.6 09/26/2020 2:58 PM EST Plan of Treatment Health Maintenance Due Date Last Done Comments Covid-19 Vaccine (#1) 02/24/1998 CERVICAL CANCER SCREENING 04/11/2022 04/11/2019 CHOLESTEROL SCREENING 12/17/2022 12/17/2017 BMI CHECK/ADVISE 08/03/2024 09/26/2020, , 04/11/2019, Additional history exists DEPRESSION SCREENING/FOLLOWUP 08/03/2024 09/26/2020, 11/09/2018 SOCIAL NEEDS SCREENING 08/03/2024 09/26/2020, 2018 INFLUENZA (#1) 2025 06/26/2020, 06/03 (External Completion of Vaccination per patient), 05/19/2017 (External Completion of Vaccination per patient), Additional history exists BASELINE HEALTH EXAM 18-39 09/26/202509/26, 04/12/2019, 11/09/2018, Additional history exists DTAP/TDAP/TD (8 - Td or Tdap) 11/09/2028, 07/09/2009, 11/08/2002, Additional history exists PNEUMOCOCCAL VACCINE FOR HIG H RISK PATIENTS (#1) 2062 Care Teams Certified Pest Control Technician Relationship Specialty Start Date End Date Marcia Garza MD PCP - General Internal Medicine 08/27/20
--- OUTSIDE RECORDS SUMMARY | 2025-04-21 12:37 | XMS_ITS | Encounter Summary ---
Author Organization [employer] Address [address] [facility] [address] [place] [address] Care Team Providers Care Crown Pouncer Name Role Phone Lizzie Schwarz MD Primary Care Provider [phone] Encounter Details Date Type Department Care Team [...] documented as of this encounter Care Teams Crown Pouncer Relationship Specialty Start Date End Date Lizzie Schwarz MD [address] [place] [phone] PCP - General Family Medicine 03/20/22 documented as of this encounter
--- OUTSIDE RECORDS SUMMARY | 2025-04-21 12:37 | XMS_ITS | Encounter Summary ---
Author Organization [facility] Address [address] [place] [phone] Phone Care Team Providers Care Rope Coiling Machine Operator Name Role Phone Minerva Campbell SENIOR MERCHANDISER Primary Care Provider Eliu blum Encounter Details Date Type Department Care Team (Late st Contact Info) Description 07/10/2014 Documentation [facility] [place] [address] [place], [place] [phone] Family Medicine, Physician [address] [place] [address] Social History Tobacco Use Types Packs/Day Years [...] on filedocumented in this encounter Care Teams Rope Coiling Machine Operator Relationship Specialty Start Date End Date Minerva Campbell NP PCP - General 03/13/17 01/07/23 documented as of this encounter
--- OUTSIDE RECORDS SUMMARY | 2025-04-21 12:37 | XMS_ITS | Encounter Summary ---
Author Organization [facility] Address [address] [place] [phone] Phone Care Team Providers Care Engine Repairer Name Role Phone Minerva Campbell PUBLIC HEALTH Primary Care Provider Eliu blum Encounter Details Date Type Department Care Team (Late st Contact Info) Description 04/19/2014 Documentation [facility] Family Medicine [address] [place], [place] [phone] Family Medicine, Physician [address] [place] [address] Social History Tobacco Use Types Packs/Day Years [...] on filedocumented in this encounter Care Teams Engine Repairer Relationship Specialty Start Date End Date Minerva Campbell NP PCP - General 03/13/17 01/07/23 documented as of this encounter
--- OUTSIDE RECORDS SUMMARY | 2025-04-21 12:37 | XMS_ITS | Encounter Summary ---
Author Organization [facility] Address [address] [place] [phone] Phone Care Team Providers Care Breakfast And Room Attendant Name Role Phone Minerva Campbell BODY HANGER Primary Care Provider Eliu blum Encounter Details Date Type Department Care Team (Late st Contact Info) Description 08/16/2014 Documentation [facility] [place] Medicine [address] [place], [place] [phone] Family Medicine, Physician [address] [place] [address] Social History Tobacco Use Types Packs/Day Years [...] on filedocumented in this encounter Care Teams Breakfast And Room Attendant Relationship Specialty Start Date End Date Minerva Campbell NP PCP - General 03/13/17 01/07/23 documented as of this encounter
--- OUTSIDE RECORDS SUMMARY | 2025-04-21 12:37 | XMS_ITS | Encounter Summary ---
Author Organization [facility] Address [address] [place] [address] Phone Care Team Providers Care Dietetic Technician Name Role Phone Minerva Campbell INK GRINDER Primary Care Provider Eliu blum Encounter Details Date Type Department Care Team (Late st Contact Info) Description 08/16/2014 Documentation [facility] [place] [address] [place], [place] [phone] Family Medicine, Physician [address] [place] [address] Social History Tobacco Use Types Packs/Day Years [...] on filedocumented in this encounter Care Teams Dietetic Technician Relationship Specialty Start Date End Date Minerva Campbell NP PCP - General 03/13/17 01/07/23 documented as of this encounter
--- OUTSIDE RECORDS SUMMARY | 2025-04-21 12:37 | XMS_ITS | Encounter Summary ---
Author Organization [employer] Address [address] [facility] [address] [place] [address] Care Team Providers Care Contact Assembler Name Role Phone Lizzie Schwarz MD Primary Care Provider [phone] Encounter Details Date Type Department Care Team (Late st Contact Info) Description 10/14/2023 Orders Only [facility] MEDICINE [address] [place] [address] Lizzie Schwarz MD [address] [place] [address] Postoperative scar; H/O major cardiovascular surgery Social [...] documented as of this encounter Care Teams Contact Assembler Relationship Specialty Start Date End Date Lizzie Schwarz MD [address] [place] [address] PCP - General Family Medicine 03/20/22 documented as of this encounter
[2025-04-21 13:57] LABS: Potassium 4.5 mmol/L (3.3-5.1)
== END 2025-04-21 12:35 | disposition home or self-care (01) ==
LOC: HO.10HDL 12:34
PROVIDERS: Visit Provider Family Medicine
DX: E87.5 Hyperkalemia (principal)
CPT/HCPCS: 36415; 84132

== ENCOUNTER 2025-04-24 16:35 | Emergency (ER) | payer OTHER, SELFPAY ==
--- OUTSIDE RECORDS SUMMARY | 2025-04-20 15:00 | XMS_ITS | Encounter Summary ---
Author Organization [employer] Address [address] [place] [address] [address] [place] [address] Care Team Providers Care Electric Sign Wirer Name Role Phone Lizzie Schwarz MD Primary Care Provider [phone] Reason for Referral * Imaging (Routine) - Authorized Specialty Diagnoses / Procedures Referred By Minoo jackson Referred To Contact Radiology Diagnoses Epigastric pain Procedures US Abdomen Complete Zaria James DO [address] [place] [address] Phone: tel: fax: [address] Phone: tel: fax: Referral ID Status Reason Start Date Expiration Date V isits Requested Visits Authorized [id number] Authorized 04/20/2025 04/20/2026 1 1 Reason for Visit * Reason Comments Abdominal Pain Encounter Details Date Type Department Care Team (Late st Contact Info) Description 04/20/2025 3:00 PM EDT Office Visit [facility] [address] [place], [place] [phone] Zaria James DO [address] [place], [place] [phone] Epigastric pain (Primary Dx); Alternating constipation and diarrhea Social History Tobacco Use Types Packs/Day Years [...] 9:20 AM EST documented in this encounter Progress Notes * Zaria James, - 04/20/2025 3:00 PM EDT SUBJECTIVE: Anand Geiger is a 29 y.o. year old female who presents for sick visit. HPI She comes to [place] c/o abd pain and heartburn. She has had intermittent heartburn sx in the past but her sx have been bad for the last 3 weeks. She says that everything she eats and drinks gives her pain and heartburn. She says that she has been living on tums and rolaids. She has tried eating dinner earlier and sleeping elevated but she is getting a lot of reflux at night as well. She describes the pain as a throbbing sensation in the center of her stomach. She feels some nauseabut no vomiting. She says that she has been getting diarrhea, which she has never suffered from before, and sometimes she has constipation. No recent weight gain. Abdominal Pain Associated symptoms include nausea. Pertinent negatives include no diarrhea, fever, headaches or vomiting. Heartburn Severity: Severe Onset quality: Sudden Duration: 3 weeks Timing: Constant Progression: Worsening Chronicity: New Associated symptoms: abdominal pain and nausea Associated symptoms: no chest pain, no congestion, no cough, no diarrhea, no fever, no headaches, no rash, no shortness of breath, no sore throat, no vomiting and no wheezing Abdominal pain: Location: Epigastric Quality: gnawing and throbbing Quality: not bloating, not burning and no pressure Severity: Moderate Timing: Intermittent Chronicity: New Review of Systems Constitutional: Negative for chills and fever. HENT: Negative for congestion and sore throat. Respiratory: Negative for cough, shortness of breath and wheezing. Cardiovascular: Negative for chest pain and leg swelling. Gastrointestinal: Positive for abdominal pain, heartburn and nausea. Negative for diarrhea and vomiting. Skin: Negative for rash. Neurological: Negative for headaches. Patient Active Problem List Diagnosis Congenital anomaly of heart Migraine headache Obesity Status post laparoscopic cholecystectomy Elevated blood pressure reading without diagnosis of hypertension Dizziness Status post appendectomy Tinea pedis No Known Allergies OBJECTIVE Vitals: 04/20/25 1434 BP: (!) 128/90 BP Location: Right arm Patient Position: Sitting BP Cuff Size: Large adult Pulse: 85 Resp: 18 Temp: 98.1 ??F (36.7 ??C) TempSrc: Temporal SpO2: 100% Weight: 175 lb 9.6 oz (79.7 kg) Physical Exam Constitutional: General: She is not in acute distress. Appearance: Normal appearance. She is obese. HENT: Mouth/Throat: Pharynx: No oropharyngeal exudate or posterior oropharyngeal erythema. Cardiovascular: Rate and Rhythm: Normal rate and regular rhythm. Heart sounds: Normal heart sounds. No murmur heard. Pulmonary: Effort: Pulmonary effort is normal. Breath sounds: Normal breath sounds. No wheezing or rhonchi. Abdominal: General: Bowel sounds are normal. There is no distension. Palpations: Abdomen is soft. Tenderness: There is abdominal tenderness in the epigastric area. There is no guarding or rebound. Neurological: General: No focal deficit present. Mental Status: She is alert and oriented to person, place, and time. Cranial Nerves: No cranial nerve deficit. Motor: No weakness. Gait: Gait normal. Psychiatric: Mood and Affect: Mood normal. ASSESSMENT/PLAN Diagnoses and all orders for this visit: Epigastric pain With significant worsening heartburn and reflux, probable uncontrolled GERD -check H. Pylori breath test, will treat pending results -referred for abd US -check basic labs -start omeprazole BID -start pepcid nightly -cont tums prn -advised pt will refer to GI if no improvement -advised rtc or go to ED if sx change or worsen, she agrees with plans - Helicobacter pylori, Urea Breath Test - Hepatic Function Panel; Future - CBC; Future - Basic Metabolic Panel; Future - Amylase; Future - Lipase; Future - US Abdomen Complete; Future - omeprazole OTC (PriLOSEC OTC) 20 MG EC tablet; Take 1 tablet (20 mg) by mouth before breakfast and before evening meal. Do not crush, chew, or split. - famotidine (Pepcid) 40 MG tablet; Take 1 tablet (40 mg) by mouth at bedtime. Alternating constipation and diarrhea Possible IBS -provided reassurance -start fiber supplementation BID -trial probiotic daily -consider eval with GI if no improvement - polycarbophil (Fibercon) 625 MG tablet; Take 1 tablet (625 mg) by mouth 2 times daily. - Saccharomyces boulardii (probiotic) 250 MG capsule; Take 1 capsule (250 mg) by mouth Once per day. F/U with PCP as scheduled or sooner prn Current Outpatient Medications: Blood Pressure Monitor kit, Check blood pressure once daily and as needed, Disp: 1 kit, Rfl: 0 clotrimazole-betamethasone (Lotrisone) cream, Apply topically 2 times daily., Disp: 15 g, Rfl: 3 famotidine (Pepcid) 40 MG tablet, Take 1 tablet (40 mg) by mouth at bedtime., Disp: 30 tablet, Rfl:3 fluticasone (Flonase) 50 MCG/ACT nasal spray, Administer 1 spray into each nostril in the morning.,Disp: 16 g, Rfl: 0 omeprazole OTC (PriLOSEC OTC) 20 MG EC tablet, Take 1 tablet (20 mg) by mouth before breakfast and before evening meal. Do not crush, chew, or split., Disp: 60 tablet, Rfl: 3 polycarbophil (Fibercon) 625 MG tablet, Take 1 tablet (625 mg) by mouth 2 times daily., Disp: 60 tablet, Rfl: 3 Saccharomyces boulardii (probiotic) 250 MG capsule, Take 1 capsule (250 mg) by mouth Once per day.,Disp: 30 capsule, Rfl: 3 Tirzepatide-Weight Management (Zepbound) 2.5 MG/0.5ML solution auto-injector, Inject 0.5 mL (2.5 mg) under the skin 1 (one) time per week., Disp: 2 mL, Rfl: 11 Topiramate ER 25 MG capsule extended-release 24 hour sprinkle, TAKE 1 CAPSULE BY MOUTH TWICE DAILY., Disp: 180 capsule, Rfl: 3 documented in this encounter Plan of Treatment Scheduled Orders Name Type Priority Associated Diagnoses Orde r Schedule US Abdomen Complete Imaging Routine Epigastric pain Expected: 04/20/2025, Expires: 04/20/2026 documented as of this encounter Procedures Procedure Name Priority Date/Time Associated Diagnosis Comments CBC Routine 04/20/2025 3:30 PM EDT Epigastric pain LIPASE Routine 04/20/2025 3:30 PM EDT Epigastric pain AMYLASE Routine 04/20/2025 3:30 PM EDT Epigastric pain HEPATIC FUNCTION PANEL Routine 04/20/2025 3:30 PM EDT Epigastric pain BASIC METABOLIC PANEL Routine 04/20/2025 3:30 PM EDT Epigastric pain HELICOBACTER PYLORI, UREA BREATH TEST Routine 04/20/2025 3:15 PM EDT Epigastric pain documented in this encounter Results * Lipase (04/20/2025 3:30 PM EDT) Lipase 25 8 - 78 U/L [facility] Blood Venous blood specimen / Unknown 04/20/2025 3:30 PM EDT 04/20/2025 4:03 PM EDT Zaria Green [employer] LAB BLOOD ORDERABLES Final R esult Performing Organization Address City/[facility]/ZIP Co de Phone Number [facility] [address] [place] [address] [phone] * Amylase (04/20/2025 3:30 PM EDT) Pathologist [facility] Amylase 39 28 - 100 U/L [facility] Comment:Moderate Hemolysis.I nterpret result with caution. Blood Venous blood specimen / Unknown 04/20/2025 3:30 PM EDT 04/20/2025 4:03 PM EDT Gem LAB BLOOD ORDERABLES Final R esult Performing Organization Address City/[facility]/ZIP Co de Phone Number [facility] [address] [place] [address] [phone] * (ABNORMAL) Basic Metabolic Panel (04/20/2025 3:30 PM EDT) Pathologist [facility] Sodium 140 135 - 145 mmol/L [facility] Potassium 5.8(H) 3.3 - 5.1 mmol/L [facility] Comment:Moderate Hemolysis.I nterpret result with caution. Chloride 110(H) 96 - 108 mmol/L [facility] Carbon Dioxide 22 22 - 29 mmol/L [facility] Anion Gap 14 12 - 20 [facility] Urea Nitrogen (BUN) 12 9 - 16 mg/dL [facility] Creatinine, Serum 0.68 0.5 - 1.4 mg/dL [facility] Estimated Glomerular Filt Rate >60 [facility] Comment:Chronic Kidney Disea se: Estimated GFR < 60 mL/min/[id number] Kidney Disease: Estimated GFR < 15 mL/min/1.73m2 Glucose 76 60 - 115 mg/dL [facility] Calcium 9.3 8.4 - 10.2 mg/dL [facility] Blood Venous blood specimen / Unknown 04/20/2025 3:30 PM EDT 04/20/2025 4:03 PM EDT us Zaria James DO LAB BLOOD ORDERABLES Final R esult [facility] [address] [place] [phone] * (ABNORMAL) CBC (04/20/2025 3:30 PM EDT) White Blood Count 7.0 4.8 - 10.8 X10*3/uL [facility] Red Blood Count 5.39 4.20 - 5.50 X10*6/uL [facility] Hemoglobin 14.9 12.0 - 16.0 g/dl [facility] Hematocrit 45.3 37.0 - 47.0 % [facility] Mean Corpuscular Volume 84.0 80.0 - 98.0 fL [facility] Mean Corpuscular Hemoglobin 27.6 27.0 - 33.0 pg [facility] Mean Corpuscular HGB Conc 32.9 31.0 - 35.0 g/dl [facility] Red Cell Distribution Width 16.8(H) 11.0 - 16.0 % [facility] Platelet Count 236 160 - 400 X10*3/uL [facility] Mean Platelet Volume 11.1 9.4 - 12.3 fL [facility] NRBC Pct Auto 0.0 0.0 - 0.2 /100WBC [facility] NRBC Abs Auto 0.000 0.0 - 0.012 X10*3/uL [facility] Blood Venous blood specimen / Unknown 04/20/2025 3:30 PM EDT 04/20/2025 4:14 PM EDT Zaria James DO LAB BLOOD ORDERABLES Final R esult [facility] [address] [place] [phone] * (ABNORMAL) Hepatic Function Panel (04/20/2025 3:30 PM EDT) Bilirubin, Total 0.6 0.0 - 1.0 mg/dL [facility] Bilirubin, Direct 0.1 0.0 - 0.5 mg/dL [facility] Aspartate Amino Transferase 55(H) 5 - 31 U/L [facility] Comment:Moderate Hemolysis.I nterpret result with caution. Alanine Aminotransferase 37(H) 0 - 31 U/L [facility] Total Protein 8.4(H) 6.5 - 8.0 g/dL [facility] Comment:Moderate Hemolysis.I nterpret result with caution. Albumin Level 4.6 3.5 - 5.0 g/dL [facility] Alkaline Phosphatase 93 39 - 117 U/L [facility] Blood Venous blood specimen / Unknown 04/20/2025 3:30 PM EDT 04/20/2025 4:03 PM EDT Zaria James EQAL LAB BLOOD ORDERABLES Final R esult Performing Organization Address [facility] Co de Phone Number [facility] [address] [place] [address] [phone] * Helicobacter pylori, Urea Breath Test (04/20/2025 3:15 PM EDT) H. pylori Breath Test Negative Negative [facility] Comment:Antimicrobials, prot on pump inhibitors and bismuthpreparations are known to suppress H. pylori. Ingestingthese medications within two weeks prior to performing thebreath test may produce negative test results. A positiveresult is still clinically valid. Breath 04/20/2025 3:15 PM EDT 04/20/2025 4:18 PM EDT us Zaria James DO LAB BODY FLUIDS AND STOOLS O RDERABLES Final Result Performing Organization Address [facility] Co de Phone Number [facility] [address] [place] [address] [phone] documented in this encounter Visit Diagnoses Diagnosis Epigastric pain- Primary Abdominal pain, epigastric Alternating constipation and diarrhea documented in this encounter Additional Health Concerns Assessment Noted Time PHQ-9 Depression Total Score: 9 08/18/19 25 10:26 AM EST documented as of this encounter Care Teams Electric Sign Wirer Relationship Specialty Start Date End Date Lizzie Schwarz MD [address] [place] [phone] PCP - General Family Medicine 03/20/22 documented as of this encounter
--- NOTE | ~2025-04-24 | XR_ITS ---
CLINICAL HISTORY: pain 1 view abdomen Comparison: None provided Findings: No pneumoperitoneum or pneumatosis. No abnormal calcifications. No acute fractures. Prior cholecystectomy. IMPRESSION: 1. No acute abdominal findings. 2. Status post cholecystectomy. This document has been electronically signed by: Aden Swan MD on 04/24/2025 21:40:50
[2025-04-24 16:53] VITALS: BP 162/102; PULSE 88; RESP 16; TEMP 36.6; O2SAT 99; BMI 37.6
--- NOTE | 2025-04-24 16:55 | ED_ITS ---
HPI - General Adult General Chief complaint: Abdominal Pain Stated complaint: abd pain, black stool Time Seen by Provider: 04/24/25 20:11 Source: patient Limitations: no limitations History of Present Illness ED Provider: Edilia Gonzalez PA-C HPI narrative: 29-year-old female with a history of morbid obesity, status post cholecystectomy 2 years ago, presents with epigastric discomfort of unclear duration. Patient describes her symptoms as a burning sensation. Associated dark stools, with nausea vomiting at times. Patient states she has been seen at urgent Care, she was ruled out for H pylori, she has an upper abdominal ultrasound pending. Denies fever, coffee-ground emesis. Denies constipation. Related Data Home Medications ?Medication ?Instructions ?Recorded ?Confirmed famotidine 40 mg tablet 40 mg PO DAILY 04/24/2504/04 tirzepatide 4.25 mg subcut QWEEK weight loss 04/24/25 04/24/25 Previous Rx's ?Medication ?Instructions ?Recorded sucralfate 100 mg/mL oral 10 ml PO QID PRN indigestion #300 04/24/25 suspension (Carafate) mL Allergies Allergy/AdvReac Type Severity Reaction Status Date / Time No Known Allergies Allergy Verified 04/24/25 16:55 Review of Systems 2 Review of Systems: Yes all other systems are reviewed and are negative Constitutional: Constitutional: Denies fatigue and Denies fever(s) Cardiovascular: Cardiovascular: Denies chest pain and Denies dyspnea Respiratory: Respiratory: Denies dyspnea Gastrointestinal: Gastrointestinal: Reports abdominal pain, Reports melena, Denies coffee ground emesis, Denies constipation, Denies diarrhea, Reports nausea and Reports vomiting Endocrine: Endocrine: Denies fatigue PMFSH Past Medical History Attestation statement: The following information was validated with the patient. Medical History Migraines Surgical History History of appendectomy History of laparoscopic cholecystectomy (12/26/22) Hx of heart surgery [place] teeth extracted Family History Family History Father Diabetes Mother Diabetes Social History Social History Alcohol intake: current Alcohol intake frequency: holidays/special occasions only Patient Tobacco Use Status: Never used Tobacco Smoked in Last 30 Days: No Use of substances other than those prescribed or required for medical reasons: No Advance Directives: No Advance Directives Information Provided: Yes Patient : No Physical Exam ED Vital Signs: Vital Signs - 24 hr 04/24/25 16:53 04/24/25 20:00 Temperature 97.9 F 98.4 F Pulse Rate 88 84 Respiratory Rate 16 16 Blood Pressure 162/102 H 141/89 H Pulse Oximetry 99 99 Oxygen Delivery Method Room Air Room Air BMI result Body Mass Index 37.6 Const Other: Alert well-appearing Orientation/consciousness: patient oriented x3 Resp Effort & Inspection: normal respiratory effort Cardio Other: No peripheral perfusion GI Other: Obese abdomen, soft, nondistended nontender no guarding, stool brown guaiac- negative Skin Other: Warm dry no rash Neuro General: patient oriented x3, gait normal, no focal motor deficits and CN's II- XI intact bilaterally Psych Other: Cooperative Course Course Course Narrative: This is a Rapid Medical Examination (RME) performed by Fide Almanza PA-C in triage. Full HPI, ROS, assessment and treatment plan per primary provider in the Main ED. Hx: 29 yo F here for eval of abd pain intermittently x weeks. reports black stools today. she has been taking pepto bismol every other day x1-2 weeks. no thinners. Plan: labs, UA Medical Decision Making Medical Decision Making MDM Narrative: 29-year-old female with a history of morbid obesity, status post cholecystectomy 2 years ago, presents with epigastric discomfort of unclear duration. Patient describes her symptoms as a burning sensation. Associated dark stools, with nausea vomiting at times. Patient states she has been seen at urgent Care, she was ruled out for H pylori, she has an upper abdominal ultrasound pending. Denies fever, coffee-ground emesis. Denies constipation. Problem: Obesity History: Per patient I have considered the following differential diagnoses: Choledocholithiasis, GERD/gastritis, pancreatitis, peptic ulcer disease/H pylori Plan: Patient here with the epigastric pain that has consistent with poorly controlled acid reflux. She has already been ruled out for H pylori. Her abdominal exam was completely benign, I have no suspicion for per for secondary to an ulcer, especially given she is negative for H pylori. She has already had cholecystectomy, she is not having focal right upper quadrant pain, and her LFTs are normal, no indication for emergent ultrasound today. I will order a KUB to assess for stool burden, this is a common trigger for reflux. Giving Carafate. I have independently reviewed the following tests: Labs: No leukocytosis, not anemic, no electrolyte abnormality, LFTs normal, lipase normal, not KUB: Findings: No pneumoperitoneum or pneumatosis. No abnormal calcifications. No acute fractures. Prior cholecystectomy. IMPRESSION: 1. No acute abdominal findings. 2. Status post cholecystectomy. Differential Diagnosis Differential Diagnoses: The differential diagnosis associated with the presentation includes See medical decision-making Admission/Observation Consideration of admission/observation: Escalation of care including admission/observation considered Not applicable Lab Data MDM Lab Attestation statement: I reviewed the patient's lab results. 04/24/25 17:14 04/24/25 17:14 Labs: Lab Results 04/24/25 04/24/25 Range/Units 17:14 20:45 WBC 7.4 (4.8-10.8) X10*3/uL RBC 5.14 (4.20-5.50) X10*6/uL Hgb 14.2 (12.0-16.0) g/dl Hct 42.4 (37.0-47.0) % MCV 82.5 (80.0-98.0) fL MCH 27.6 (27.0-33.0) pg MCHC 33.5 (31.0-35.0) g/dl RDW 15.6 (11.0-16.0) % Plt Count 309 D (160-400) X10*3/uL MPV 10.7 (9.4-12.3) fL Immature Gran % (Auto) 0.3 (0.0-0.4) % Neut % (Auto) 66.5 (45-73) % Lymph % (Auto) 26.9 (20-40) % Frederick % (Auto) 4.7 (2-11) % Eos % (Auto) 0.9 (0-4) % Baso % (Auto) 0.7 (0-2) % Lymph # (Auto) 2.0 (1.2-4.9) X10*3/uL Frederick # (Auto) 0.4 (0.1-1.2) X10*3/uL Eos # (Auto) 0.1 (0.0-0.4) X10*3/uL Baso # (Auto) 0.1 (0.0-0.2) X10*3/uL Abs Immat Gran (auto) 0.02 (0.00-0.03) X10*3/uL Absolute Neuts (auto) 4.9 (2.0-8.3) x10*3/uL Absolute Nucleated RBC 0.000 (0.0-0.012) X10*3/uL Nucleated RBC % (auto) 0.0 (0.0-0.2) /100WBC Sodium 140 (135-145) mmol/L Potassium 4.1 (3.3-5.1) mmol/L Chloride 105 (96-108) mmol/L Carbon Dioxide 25 (22-29) mmol/L Anion Gap 14 (12-20) BUN 11 (9-16) mg/dL Creatinine 0.59 (0.5-1.4) mg/dL Estim Creat Clear Calc 129.3 Estimated GFR > 60 Random Glucose 90 (60-115) mg/dL Calcium 9.5 (8.4-10.2) mg/dL Magnesium 1.9 (1.6-2.6) mg/dL Total Bilirubin 0.4 (0.0-1.0) mg/dL Direct Bilirubin 0.2 (0.0-0.5) mg/dL AST 29 (5-31) U/L ALT 38 H (0-31) U/L Alkaline Phosphatase 102 (39-117) U/L Total Protein 7.8 (6.5-8.0) g/dL Albumin 4.7 (3.5-5.0) g/dL Beta HCG, Quant < 2 mIU/mL Stool Occult Blood NEGATIVE (NEGATIVE) Radiology Impression Discussion of test interpretation with radiology: I have reviewed the radiologist's reading. Discharge Plan Discharge Clinical Impression: Epigastric abdominal pain, GERD (gastroesophageal reflux disease) Patient Disposition: Home, Self-Care Instructions: GERD (Gastroesophageal Reflux Disease) (ED), Epigastric Pain (ED) Additional Instructions: All of your screening labs were completely normal. You are not passing blood in your stool. The screening x-ray of the abdomen was normal as well. I do feel your symptoms are secondary to poorly controlled acid reflux. See home care instructions. Eating smaller more frequent meals throughout the day can help to deter symptoms. Do not eat 3 hours before bed. Some common food triggers include greasy fatty food, acidic food, spicy food, caffeine, carbonated drinks, alcohol, mint. Use the Carafate as needed for upper abdominal discomfort. Keep your pending follow up for the ultrasound. If you continue to experience symptoms, despite changing your behaviors and your diet, the next subsequent step would be to have an endoscopy as an outpatient. This can be scheduled by your primary care provider. Prescriptions: New sucralfate [Carafate] 100 mg/mL suspension 10 ml PO QID PRN (Reason: indigestion) Qty: 300 0RF Rx Instructions: swish in mouth and swallow; use after food/drink No Action famotidine 40 mg tablet 40 mg PO DAILY tirzepatide 4.25 mg subcut QWEEK Rx Instructions: Tirzepatide + Methylcobalamin 4.25 mg/50 units SUBCUT weekly for weight loss Stand Alone Forms: Work/School Release Print Language: Arabic
[2025-04-24 17:19] LABS: MANUAL DIFF FLAG NO
[2025-04-24 17:24] LABS: Hematocrit 42.4 % (37.0-47.0); Hemoglobin 14.2 g/dl (12.0-16.0); Imm Gran Abs Auto 0.02 X10*3/uL (0.00-0.03); Imm Gran Pct Auto 0.3 % (0.0-0.4); Lymphocytes Absolute Auto 2.0 X10*3/uL (1.2-4.9); Mean Corpuscular HGB Conc 33.5 g/dl (31.0-35.0); Mean Corpuscular Hemoglobin 27.6 pg (27.0-33.0); Mean Corpuscular Volume 82.5 fL (80.0-98.0); NRBC Abs Auto 0.000 X10*3/uL (0.0-0.012); NRBC Pct Auto 0.0 /100WBC (0.0-0.2); Platelet Count 309 X10*3/uL (160-400); Red Blood Count 5.14 X10*6/uL (4.20-5.50); White Blood Count 7.4 X10*3/uL (4.8-10.8)
[2025-04-24 17:41] LABS: Alanine Aminotransferase 38 U/L (0-31); Albumin Level 4.7 g/dL (3.5-5.0); Alkaline Phosphatase 102 U/L (39-117); Anion Gap 14 (12-20); Aspartate Amino Transferase 29 U/L (5-31); Blood Urea Nitrogen 11 mg/dL (9-16); Calcium 9.5 mg/dL (8.4-10.2); Carbon Dioxide 25 mmol/L (22-29); Chloride 105 mmol/L (96-108); Creatinine Clr Calc Pharmacy 129.3; Estimated Glomerular Filt Rate > 60; Magnesium 1.9 mg/dL (1.6-2.6); Potassium 4.1 mmol/L (3.3-5.1); Sodium 140 mmol/L (135-145); Total Protein 7.8 g/dL (6.5-8.0)
--- OUTSIDE RECORDS SUMMARY | 2025-04-24 18:24 | XMS_ITS | Encounter Summary ---
Author Organization [facility] Address [address] [place] [address] Phone Care Team Providers Care Mainframe Systems Programmer Name Role Phone Minerva Campbell DIVISION OFFICER WEAPONS DEPARTMENT Primary Care Provider Eliu blum Encounter Details Date Type Department Care Team (Late st Contact Info) Description 08/16/2014 Documentation [facility] [place] Family Medicine [address] [place], [place] [phone] Family Medicine, Physician [address] [place] [address] Social History Tobacco Use Types Packs/Day Years [...] on filedocumented in this encounter Care Teams Mainframe Systems Programmer Relationship Specialty Start Date End Date Minerva Campbell NP PCP - General 03/13/17 01/07/23 documented as of this encounter
--- OUTSIDE RECORDS SUMMARY | 2025-04-24 18:24 | XMS_ITS | Encounter Summary ---
Author Organization [facility] Address [address] [place] [address] Phone Care Team Providers Care Material Handling Crew Supervisor Name Role Phone Minerva Campbell STAFFING PROGRAM MANAGER Primary Care Provider Eliu blum Encounter Details Date Type Department Care Team (Late st Contact Info) Description 11/06/2016 Documentation [facility] [place] Family Medicine [address] [place] [address] Family Medicine, Physician [address] [place] [address] Social History Tobacco Use Types Packs/Day Years [...] on filedocumented in this encounter Care Teams Material Handling Crew Supervisor Relationship Specialty Start Date End Date Minerva Campbell NP PCP - General 03/13/17 01/07/23 documented as of this encounter
--- OUTSIDE RECORDS SUMMARY | 2025-04-24 18:24 | XMS_ITS | Encounter Summary ---
Author Organization [facility] Address [address] [place] [address] Phone Care Team Providers Care Residential Concierge Name Role Phone Minerva Campbell CLIENT REPORTING ASSOCIATE Primary Care Provider Eliu blum Encounter Details Date Type Department Care Team (Late st Contact Info) Description 08/16/2014 Documentation [facility] [place] [address] [place], [place] [phone] Family Medicine, Physician [address] [place] [address] Social History Tobacco Use Types Packs/Day Years [...] on filedocumented in this encounter Care Teams Residential Concierge Relationship Specialty Start Date End Date Minerva Campbell NP PCP - General 03/13/17 01/07/23 documented as of this encounter
--- OUTSIDE RECORDS SUMMARY | 2025-04-24 18:24 | XMS_ITS | Encounter Summary ---
Author Organization [employer] Address [address] [facility] [address] [place] [address] Care Team Providers Care Public Health Assistant Name Role Phone Lizzie Schwarz MD Primary Care Provider [phone] Encounter Details Date Type Department Care Team (Late st Contact Info) Description 04/20/2025 Telephone [facility] MEDICINE [address] [place] [address] Lizzie Schwarz MD [address] [place] [address] Social History Tobacco Use Types Packs/Day Years [...] Today- Hours of operation and days open [facility] walk in given to pt. As she [...] documented as of this encounter Care Teams Public Health Assistant Relationship Specialty Start Date End Date Lizzie Schwarz MD [address] [place] [address] PCP - General Family Medicine 03/20/22 documented as of this encounter
--- OUTSIDE RECORDS SUMMARY | 2025-04-24 18:24 | XMS_ITS | Encounter Summary ---
Author Organization [facility] Address [address] [place] [address] Phone Care Team Providers Care Director For Beauty School Name Role Phone Minerva Campbell SUPERVISOR RECLAMATION Primary Care Provider Eliu blum Encounter Details Date Type Department Care Team (Late st Contact Info) Description 11/13/2009 Documentation [facility] [place] Family Medicine [address] [place], [place] [phone] Family Medicine, Physician [address] [place] [address] Social History Tobacco Use Types Packs/Day Years [...] on filedocumented in this encounter Care Teams Director For Beauty School Relationship Specialty Start Date End Date Minerva Campbell NP PCP - General 03/13/17 01/07/23 documented as of this encounter
--- OUTSIDE RECORDS SUMMARY | 2025-04-24 18:24 | XMS_ITS | Encounter Summary ---
Author Organization [facility] Address [address] [place] [address] Phone Care Team Providers Care Radar Engineer Name Role Phone Minerva Campbell OVEN DRIER TENDER Primary Care Provider Eliu blum Encounter Details Date Type Department Care Team (Late st Contact Info) Description 07/10/2014 [place]ation [facility] [place] [address] [place], [place] [phone] Family Medicine, Physician [address] [place] [address] Social History Tobacco Use Types Packs/Day Years [...] filedocumented in this encounter Care Teams Radar Engineer Relationship Specialty Start Date End Date Minerva Campbell NP PCP - General 03/13/17 01/07/23 documented as of this encounter
--- OUTSIDE RECORDS SUMMARY | 2025-04-24 18:24 | XMS_ITS | Encounter Summary ---
Author Organization [facility] Address [address] [place] [address] Phone Care Team Providers Care Electrification Adviser Name Role Phone Minerva Campbell SETTLEMENT AGENT Primary Care Provider Eliu blum Encounter Details Date Type Department Care Team (Late st Contact Info) Description 03/23/2017 Documentation [facility] [place] [address] [place] [address] Family Medicine, Physician [address] [place] [address] Social History Tobacco Use Types Packs/Day Years [...] on filedocumented in this encounter Care Teams Electrification Adviser Relationship Specialty Start Date End Date Minerva Campbell NP PCP - General 03/13/17 01/07/23 documented as of this encounter
--- OUTSIDE RECORDS SUMMARY | 2025-04-24 18:24 | XMS_ITS | Encounter Summary ---
Author Organization [facility] Address [address] [place] [address] Phone Care Team Providers Care Cloth Picker Name Role Phone Minerva Campbell MASTIC WORKER Primary Care Provider Eliu blum Encounter Details Date Type Department Care Team (Late st Contact Info) Description 08/16/2014 Documentation [facility] [place] Family Medicine [address] [place], [place] [phone] Family Medicine, Physician [address] [place] [address] Social History Tobacco Use Types Packs/Day Years [...] on filedocumented in this encounter Care Teams Cloth Picker Relationship Specialty Start Date End Date Minerva Campbell NP PCP - General 03/13/17 01/07/23 documented as of this encounter
--- OUTSIDE RECORDS SUMMARY | 2025-04-24 18:24 | XMS_ITS | Clinical Summary ---
Author Organization [facility] Address [address] [place] [address] Phone Care Team Providers Care Ux Developer Name Role Phone Unavailable Primary Care Provider [...] dislocation of hip, Family history of *Sudden /MD under 55, Family history of Migraines, Family [...]
--- OUTSIDE RECORDS SUMMARY | 2025-04-24 18:24 | XMS_ITS | Encounter Summary ---
Author Organization [facility] Address [address] [place] [address] Phone Care Team Providers Care Gasateria Attendant Name Role Phone Minerva Campbell SENIOR GAMEMASTER Primary Care Provider Eliu blum Encounter Details Date Type Department Care Team (Late st Contact Info) Description 08/16/2014 Documentation [facility] [place] Family Medicine [address] [place], [place] [phone] Family Medicine, Physician [address] [place] [address] Social History Tobacco Use Types Packs/Day Years [...] on filedocumented in this encounter Care Teams Gasateria Attendant Relationship Specialty Start Date End Date Minerva Campbell NP PCP - General 03/13/17 01/07/23 documented as of this encounter
--- OUTSIDE RECORDS SUMMARY | 2025-04-24 18:24 | XMS_ITS | Encounter Summary ---
Author Organization [facility] Address [address] [place] [address] Phone Care Team Providers Care Chemotherapist Name Role Phone Minerva Campbell ALGORITHM DEVELOPER Primary Care Provider Eliu blum Encounter Details Date Type Department Care Team (Late st Contact Info) Description 08/16/2014 Documentation [facility] [place] Family Medicine [address] [place], [place] [phone] Family Medicine, Physician [address] [place] [address] Social History Tobacco Use Types Packs/Day Years [...] on filedocumented in this encounter Care Teams Chemotherapist Relationship Specialty Start Date End Date Minerva Campbell NP PCP - General 03/13/17 01/07/23 documented as of this encounter
--- OUTSIDE RECORDS SUMMARY | 2025-04-24 18:24 | XMS_ITS | Encounter Summary ---
Author Organization [facility] Address [address] [place] [address] Phone Care Team Providers Care Center Rep Name Role Phone Minerva Campbell VP OF PRODUCT Primary Care Provider Eliu blum Encounter Details Date Type Department Care Team (Late st Contact Info) Description 04/19/2014 Documentation [facility] Family Medicine [address] [place], [place] [phone] Family Medicine, Physician [address] [place] [address] Social History Tobacco Use Types Packs/Day Years [...] on filedocumented in this encounter Care Teams Center Rep Relationship Specialty Start Date End Date Minerva Campbell NP PCP - General 03/13/17 01/07/23 documented as of this encounter
--- OUTSIDE RECORDS SUMMARY | 2025-04-24 18:24 | XMS_ITS | Encounter Summary ---
Author Organization [facility] Address [address] [place] [address] Phone Care Team Providers Care Toolmaker Name Role Phone Minerva Campbell MOLDED GOODS SPOT PICKER Primary Care Provider Eliu blum Encounter Details Date Type Department Care Team (Late st Contact Info) Description 03/19/2017 Conversion Encounter [facility] - [address] [address] Social History Tobacco Use Types Packs/Day Years [...] on filedocumented in this encounter Care Teams Toolmaker Relationship Specialty Start Date End Date Minerva Campbell NP PCP - General 03/13/17 01/07/23 documented as of this encounter
--- OUTSIDE RECORDS SUMMARY | 2025-04-24 18:24 | XMS_ITS | Encounter Summary ---
Author Organization [facility] Address [address] [place] [address] Phone Care Team Providers Care Buncher Machine Name Role Phone Minerva Campbell BOOKKEEPING SERVICE SALES AGENT Primary Care Provider Eliu blum Encounter Details Date Type Department Care Team (Late st Contact Info) Description 08/16/2014 Documentation [facility] [place] Family Medicine [address] [place], [place] [phone] Family Medicine, Physician [address] [place] [address] Social History Tobacco Use Types Packs/Day Years [...] on filedocumented in this encounter Care Teams Buncher Machine Relationship Specialty Start Date End Date Minerva Campbell NP PCP - General 03/13/17 01/07/23 documented as of this encounter
--- OUTSIDE RECORDS SUMMARY | 2025-04-24 18:24 | XMS_ITS | Encounter Summary ---
Author Organization [facility] Address [address] [place] [address] Phone Care Team Providers Care Auto Rebuilder Name Role Phone Minerva Campbell FISHERMAN HELPER Primary Care Provider Eliu blum Encounter Details Date Type Department Care Team (Late st Contact Info) Description 04/11/2014 Documentation [facility] [place] Family Medicine [address] [place], [place] [phone] Family Medicine, Physician [address] [place] [address] Social History Tobacco Use Types Packs/Day Years [...] on filedocumented in this encounter Care Teams Auto Rebuilder Relationship Specialty Start Date End Date Minerva Campbell NP PCP - General 03/13/17 01/07/23 documented as of this encounter
--- OUTSIDE RECORDS SUMMARY | 2025-04-24 18:24 | XMS_ITS | Encounter Summary ---
Author Organization [employer] Address [address] [facility] [address] [place] [address] Care Team Providers Care Silica Spray Mixer Name Role Phone Lizzie Schwarz MD Primary Care Provider [phone] Encounter Details Date Type Department Care Team (Late st Contact Info) Description 10/14/2023 Orders Only [facility] MEDICINE [address] [place] [address] Lizzie Schwarz MD [address] [place] [address] Postoperative scar; H/O major cardiovascular surgery Social [...] documented as of this encounter Care Teams Silica Spray Mixer Relationship Specialty Start Date End Date Lizzie Schwarz MD [address] [place] [address] PCP - General Family Medicine 03/20/22 documented as of this encounter
--- OUTSIDE RECORDS SUMMARY | 2025-04-24 18:24 | XMS_ITS | Encounter Summary ---
Author Organization [employer] Address [address] [facility] [address] [place] [address] Care Team Providers Care Parts Sales Counterperson Name Role Phone Lizzie Schwarz MD Primary [...] documented as of this encounter Care Teams Parts Sales Counterperson Relationship Specialty Start Date End Date Lizzie Schwarz MD [address] [place] [address] PCP - General Family Medicine 03/20/22 documented as of this encounter
--- OUTSIDE RECORDS SUMMARY | 2025-04-24 18:24 | XMS_ITS | Encounter Summary ---
Author Organization [employer] Address [address] [facility] [address] [place] [address] Care Team Providers Care Critical Power Install Technician Name Role Phone Lizzie Schwarz MD Primary Care Provider [phone] Reason for Visit * Reason Onset Date Comments Results 04/21/2025 Encounter Details Date Type Department Care Team ([facility] st Contact Info) Description 04/21/2025 Telephone [facility] [address] [place] [address] Zaria James DO [address] [place] [address] Results Social History Tobacco Use Types Packs/Day [...] level today ifpossible. TC placed to patient [phone] to inform of above however patient did not answer, RN left VM requesting CB to red team nurses. RN will re-attempt in PM. documented in this encounter Plan of Treatment Not on file documented as of this encounter Procedures Procedure Name Priority Date/Time Associated Diagnosis Comments POTASSIUM Routine 04/21/2025 12:45 PM EDT Serum potassium elevated documented in this encounter Results * Potassium (04/21/2025 12:45 PM EDT) Potassium 4.5 3.3 - 5.1 mmol/L [facility] Blood Venous blood specimen / Unknown 04/21/2025 12:45 PM EDT 04/21/2025 1:28 PM EDT us Zaria James DO LAB BLOOD ORDERABLES Final R esult [facility] [address] [place] [phone] [phone] documented in this encounter Visit Diagnoses Diagnosis Serum potassium elevated Hyperpotassemia documented in this encounter Additional Health Concerns Assessment Noted Time PHQ-9 Depression Total Score: 9 08/18/19 25 10:26 AM EST documented as of this encounter Care Teams Critical Power Install Technician Relationship Specialty Start Date End Date Lizzie Schwarz MD [address] [place] [phone] PCP - General Family Medicine 03/20/22 documented as of this encounter
--- OUTSIDE RECORDS SUMMARY | 2025-04-24 18:24 | XMS_ITS | Encounter Summary ---
Author Organization [employer] Address [address] [facility] 7[address] [place] [address] Care Team Providers Care Sr. Director Product Management Name Role Phone Lizzie Schwarz MD Primary Care Provider [phone] Encounter Details Date Type Department Care Team (Late st Contact Info) Description 04/24/2025 Orders Only GENERIC EXTERNAL DATA DEPARTMENT Provider, Generic External Data Social History Tobacco Use Types Packs/Day Years [...] Name Priority Date/Time Associated Diagnosis Comments CBC WITH AUTO DIFFERENTIAL Routine 04/24/2025 5:14 PM EDT HCG, TOTAL, QN Routine 04/24/2025 5:14 PM EDT MAGNESIUM Routine 04/24/2025 5:14 PM EDT HEPATIC FUNCTION PANEL Routine 04/24/2025 5:14 PM EDT BASIC METABOLIC PANEL Routine 04/24/2025 5:14 PM EDT documented in this encounter Results * hCG, Total, Quantitative (04/24/2025 5:14 PM EDT) HCG Quantitative <2 mIU/mL [facility] Comment:Weeks post LMP Appro ximate hCG(Last Menstrual Period) Range (mIU/ml)3 - 4 weeks 9 - 1304 - 5 weeks 75 - 2,6005 - 6 weeks 850 - 20,8006 - 7 weeks 4000 - 100,2007 - 12 weeks 11,500 - 289,65993 - 16 weeks 18,300 - 137,94017 - 29 weeks (2nd trimester) 1,400 - 53,03357 - 41 weeks (3rd trimester) 940 - 60,000The Estrada B- hCG assay is used for the early detection ofpregnancy; it cannot be used to diagnose any conditionunrelated to . If a B-hCG level is not supportedby the clinical evidence, results should be confirmed by analternative method (qualitative urine hCG, for example). 04/24/2025 5:14 PM EDT 04/24/2025 5:18 PM EDT us Generic External Data Provider LAB BLOOD ORDERAB LES Final Result Performing Organization Address City/[facility]/ZIP Co de Phone Number [facility] [address] [place] [phone] * Magnesium (04/24/2025 5:14 PM EDT) Magnesium 1.9 1.6 - 2.6 mg/dL [facility] 04/24/2025 5:14 PM EDT 04/24/2025 5:18 PM EDT us Generic External Data Provider LAB BLOOD ORDERAB LES Final Result Performing Organization Address [facility]/ZIP Co de Phone Number [facility] [address] [place] [phone] * Basic Metabolic Panel (04/24/2025 5:14 PM EDT) Sodium 140 135 - 145 mmol/L [facility] Potassium 4.1 3.3 - 5.1 mmol/L [facility] Chloride 105 96 - 108 mmol/L [facility] Carbon Dioxide 25 22 - 29 mmol/L [facility] Anion Gap 14 12 - 20 [facility] Urea Nitrogen (BUN) 11 9 - 16 mg/dL [facility] Creatinine, Serum 0.59 0.5 - 1.4 mg/dL [facility] Creatinine Clr Calc Pharmacy 129.3 [facility] Comment:Provided height and weight: 147.32 cm,81.647 kg.eGFR (calculated from the MDRD study equation) and eCrCl(calculated from the Cockcroft-Gault equation) are based ondifferent parameters and may not yield comparable results.If eCrCl result is absurd, please check patient'sheight/weight. Estimated Glomerular Filt Rate >60 [facility] Comment:Chronic Kidney Disea se: Estimated GFR < 60 mL/min/1.34m2Zxsjho Kidney Disease: Estimated GFR < 15 mL/min/1.73m2 Glucose 90 60 - 115 mg/dL [facility] Calcium 9.5 8.4 - 10.2 mg/dL [facility] 04/24/2025 5:14 PM EDT 04/24/2025 5:18 PM EDT Generic External Data Provider LAB BLOOD ORDERAB LES Final Result Performing Organization Address [facility] Co de Phone Number [facility] [address] [place] [phone] * (ABNORMAL) Hepatic Function Panel (04/24/2025 5:14 PM EDT) Pathologist [facility] [place] Bilirubin, Total 0.4 0.0 - 1.0 mg/dL [facility] Bilirubin, Direct 0.2 0.0 - 0.5 mg/dL [facility] Aspartate Amino Transferase 29 5 - 31 U/L [facility] Alanine Aminotransferase 38(H) 0 - 31 U/L [facility] Total Protein 7.8 6.5 - 8.0 g/dL [facility] Albumin Level 4.7 3.5 - 5.0 g/dL [facility] Alkaline Phosphatase 102 39 - 117 U/L [facility] 04/24/2025 5:14 PM EDT 04/24/2025 5:18 PM EDT Generic External Data Provider LAB BLOOD ORDERAB LES Final Result Performing Organization Address [facility] Co de Phone Number [facility] [address] [place] [phone] * CBC auto differential (04/24/2025 5:14 PM EDT) White Blood Count 7.4 4.8 - 10.8 X10*3/uL [facility] Red Blood Count 5.14 4.20 - 5.50 X10*6/uL [facility] Hemoglobin 14.2 12.0 - 16.0 g/dl [facility] Hematocrit 42.4 37.0 - 47.0 % [facility] Mean Corpuscular Volume 82.5 80.0 - 98.0 fL [facility] Mean Corpuscular Hemoglobin 27.6 27.0 - 33.0 pg [facility] Mean Corpuscular HGB Conc 33.5 31.0 - 35.0 g/dl [facility] Red Cell Distribution Width 15.6 11.0 - 16.0 % [facility] Platelet Count 309 160 - 400 X10*3/uL [facility] Mean Platelet Volume 10.7 9.4 - 12.3 fL [facility] Neutrophils Percent Auto 66.5 45 - 73 % [facility] Imm Gran Pct Auto 0.3 0.0 - 0.4 % [facility] Lymphocytes Percent Auto 26.9 20 - 40 % [facility] Monocytes Percent Auto 4.7 2 - 11 % [facility] Eosinophils Percent Auto 0.9 0 - 4 % [facility] Basophils Percent Auto 0.7 0 - 2 % [facility] NRBC Pct Auto 0.0 0.0 - 0.2 /100WBC [facility] Neutrophils Absolute Auto 4.9 2.0 - 8.3 x10*3/uL [facility] Imm Gran Abs Auto 0.02 0.00 - 0.03 X10*3/uL [facility] Lymphocytes Absolute Auto 2.0 1.2 - 4.9 X10*3/uL [facility] Monocytes Absolute Auto 0.4 0.1 - 1.2 X10*3/uL [facility] Eosinophils Absolute Auto 0.1 0.0 - 0.4 X10*3/uL [facility] Basophils Absolute Auto 0.1 0.0 - 0.2 X10*3/uL [facility] NRBC Abs Auto 0.000 0.0 - 0.012 X10*3/uL [facility] 04/24/2025 5:14 PM EDT 04/24/2025 5:18 PM EDT us Generic External Data Provider LAB BLOOD ORDERAB LES Final Result [facility] [address] [place] [phone] documented in this encounter Visit Diagnoses Not on filedocumented in this encounter Additional Health Concerns Assessment Noted Time PHQ-9 Depression Total Score: 9 08/18/19 25 10:26 AM EST documented as of this encounter Care Teams Sr. Director Product Management Relationship Specialty Start Date End Date Lizzie Schwarz MD [address] [place] [phone] PCP - General Family Medicine 03/20/22 documented as of this encounter
--- OUTSIDE RECORDS SUMMARY | 2025-04-24 18:24 | XMS_ITS | Clinical Summary ---
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 Mccoy in May 2023. Cardiac MRI was ordered. - Echo on 05/19/23 Normal LVEF 60-65%. 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12 - evaluated by [facility] in Jun 2022, negative stress test [...] Encounters Date Type Department Care Team Description 04/24/2025 Orders Only GENERIC EXTERNAL DATA DEPARTMENT Provider, Generic External Data 04/21/2025 Telephone [facility] [address] [place] [phone] Zaria James DO Results 04/20/2025 3:00 PM EDT Office Visit [facility] [address] [place], [place] [phone] Zaria James DO Epigastric pain (Primary Dx); Alternating constipation and diarrhea 04/20/2025 Travel 04/20/2025 Telephone [facility] [address] [place] [address] Lizzie Schwarz MD from Last 3 [...] 10/05/2001,09/11/1998 Meningococcal MCV4P ACYW-135 10/30/2015,07/09/20 09 Novel [id number], all formulations 07/09/2009 OPV, Trivalent 1997 Tdap [...] Procedure Name Priority Date/Time Associated Diagnosis Comments HCG, TOTAL, QN Routine 04/24/2025 5:14 PM EDT MAGNESIUM Routine 04/24/2025 5:14 PM EDT BASIC METABOLIC PANEL Routine 04/24/2025 5:14 PM EDT HEPATIC FUNCTION PANEL Routine 04/24/2025 5:14 PM EDT CBC WITH AUTO DIFFERENTIAL Routine 04/24/2025 5:14 PM EDT POTASSIUM Routine 04/21/2025 12:45 PM EDT Serum potassium elevated LIPASE Routine 04/20/2025 3:30 PM EDT Epigastric pain AMYLASE Routine 04/20/2025 3:30 PM EDT Epigastric pain BASIC METABOLIC PANEL Routine 04/20/2025 3:30 PM EDT Epigastric pain CBC Routine 04/20/2025 3:30 PM EDT Epigastric pain HEPATIC FUNCTION PANEL Routine 04/20/2025 3:30 PM EDT Epigastric pain HELICOBACTER PYLORI, UREA BREATH TEST Routine 04/20/2025 3:15 PM EDT Epigastric pain HEMOGLOBIN A1C Routine 08/18/2024 10:05 AM EST Prediabetes LIPID PANEL WITH REFLEX TO DIRECT LDL Routine 08/18/2024 10:05 AM EST Congenital anomaly of heart HM PAP/HPV Routine 04/11/2019 from Last 3 Months or Most Recently Relevant to Health Maintenance Results * CBC auto differential (04/24/2025 5:14 PM EDT) White Blood Count 7.4 4.8 - 10.8 X10*3/uL [facility] Red Blood Count 5.14 4.20 - 5.50 X10*6/uL [facility] Hemoglobin 14.2 12.0 - 16.0 g/dl [facility] Hematocrit 42.4 37.0 - 47.0 % [facility] Mean Corpuscular Volume 82.5 80.0 - 98.0 fL [facility] Mean Corpuscular Hemoglobin 27.6 27.0 - 33.0 pg [facility] Mean Corpuscular HGB Conc 33.5 31.0 - 35.0 g/dl [facility] Red Cell Distribution Width 15.6 11.0 - 16.0 % [facility] Platelet Count 309 160 - 400 X10*3/uL [facility] Mean Platelet Volume 10.7 9.4 - 12.3 fL [facility] Neutrophils Percent Auto 66.5 45 - 73 % [facility] Imm Gran Pct Auto 0.3 0.0 - 0.4 % [facility] Lymphocytes Percent Auto 26.9 20 - 40 % [facility] Monocytes Percent Auto 4.7 2 - 11 % [facility] Eosinophils Percent Auto 0.9 0 - 4 % [facility] Basophils Percent Auto 0.7 0 - 2 % [facility] NRBC Pct Auto 0.0 0.0 - 0.2 /100WBC [facility] Neutrophils Absolute Auto 4.9 2.0 - 8.3 x10*3/uL [facility] Imm Gran Abs Auto 0.02 0.00 - 0.03 X10*3/uL [facility] Lymphocytes Absolute Auto 2.0 1.2 - 4.9 X10*3/uL [facility] Monocytes Absolute Auto 0.4 0.1 - 1.2 X10*3/uL [facility] Eosinophils Absolute Auto 0.1 0.0 - 0.4 X10*3/uL [facility] Basophils Absolute Auto 0.1 0.0 - 0.2 X10*3/uL [facility] NRBC Abs Auto 0.000 0.0 - 0.012 X10*3/uL [facility] 04/24/2025 5:14 PM EDT 04/24/2025 5:18 PM EDT us Generic External Data Provider LAB BLOOD ORDERAB LES Final Result [facility] [address] [place] [phone] * hCG, Total, Quantitative (04/24/2025 5:14 PM EDT) HCG Quantitative <2 mIU/mL [facility] Comment:Weeks post LMP Appro ximate hCG(Last Menstrual Period) Range (mIU/ml)3 - 4 weeks 9 - 1304 - 5 weeks 75 - 2,6005 - 6 weeks 850 - 20,8006 - 7 weeks 4000 - 100,2007 - 12 weeks 11,500 - 289,57143 - 16 weeks 18,300 - 137,54438 - 29 weeks (2nd trimester) 1,400 - 53,03798 - 41 weeks (3rd trimester) 940 - [...] ORDERAB LES Final Result Performing Organization Address City/[facility]/ZIP Co de Phone Number [facility] [address] [place] [phone] * Magnesium (04/24/2025 5:14 PM EDT) Magnesium 1.9 1.6 - 2.6 mg/dL [facility] 04/24/2025 5:14 PM EDT 04/24/2025 5:18 PM EDT us Generic External Data Provider LAB BLOOD ORDERAB LES Final Result Performing Organization Address [facility] Co de Phone Number [facility] [address] [place] [phone] * (ABNORMAL) Hepatic Function Panel (04/24/2025 5:14 PM EDT) Only the most recent of2 resultswithin the time period is included. Bilirubin, Total 0.4 0.0 - 1.0 mg/dL [facility] Bilirubin, Direct 0.2 0.0 - 0.5 mg/dL [facility] Aspartate Amino Transferase 29 5 - 31 U/L [facility] Alanine Aminotransferase 38(H) 0 - 31 U/L [facility] Total Protein 7.8 6.5 - 8.0 g/dL [facility] Albumin Level 4.7 3.5 - 5.0 g/dL [facility] Alkaline Phosphatase 102 39 - 117 U/L [facility] 04/24/2025 5:14 PM EDT 04/24/2025 5:18 PM EDT us Generic External Data Provider LAB BLOOD ORDERAB LES Final Result Performing Organization Address [facility]/ZIP Co de Phone Number [facility] [address] [place] [phone] * Basic Metabolic Panel (04/24/2025 5:14 PM EDT) Only the most recent of2 resultswithin the time period is included. Sodium 140 135 - 145 mmol/L [facility] Potassium 4.1 3.3 - 5.1 mmol/L [facility] Chloride 105 96 - 108 mmol/L [facility] Carbon Dioxide 25 22 - 29 mmol/L [facility] Anion Gap 14 12 - 20 [facility] Urea Nitrogen (BUN) 11 9 - 16 mg/dL [facility] Creatinine, Serum 0.59 0.5 - 1.4 mg/dL [facility] Creatinine Clr Calc Pharmacy 129.3 [facility] Comment:Provided height and weight: 147.32 cm,81.647 kg.eGFR (calculated from the MDRD study equation) and eCrCl(calculated from the Cockcroft-Gault equation) are based ondifferent parameters and may not yield comparable results.If eCrCl result is absurd, please check patient'sheight/weight. Estimated Glomerular Filt Rate >60 [facility] Comment:Chronic Kidney Disea se: Estimated GFR < 60 mL/min/1.51w1Fdrydm Kidney Disease: Estimated GFR < 15 mL/min/1.73m2 Glucose 90 60 - 115 mg/dL [facility] Calcium 9.5 8.4 - 10.2 mg/dL [facility] 04/24/2025 5:14 PM EDT 04/24/2025 5:18 PM EDT us Generic External Data Provider LAB BLOOD ORDERAB LES Final Result [facility] [address] [place] [phone] * Potassium (04/21/2025 12:45 PM EDT) Potassium 4.5 3.3 - 5.1 mmol/L [facility] Blood Venous blood specimen / Unknown 04/21/2025 12:45 PM EDT 04/21/2025 1:28 PM EDT us Zaria James DO LAB BLOOD ORDERABLES Final R esult Performing Organization Address City/[facility]/ZIP Co de Phone Number [facility] [address] [place] [phone] * (ABNORMAL) CBC (04/20/2025 3:30 PM EDT) White Blood Count 7.0 4.8 - 10.8 X10*3/uL [facility] Red Blood Count 5.39 4.20 - 5.50 X10*6/uL [facility] Hemoglobin 14.9 12.0 - 16.0 g/dl [facility] Hematocrit 45.3 37.0 - 47.0 % [facility] Mean Corpuscular Volume 84.0 80.0 - 98.0 fL [facility] Mean Corpuscular Hemoglobin 27.6 27.0 - 33.0 pg [facility] Mean Corpuscular HGB Conc 32.9 31.0 - 35.0 g/dl [facility] Red Cell Distribution Width 16.8(H) 11.0 - 16.0 % [facility] Platelet Count 236 160 - 400 X10*3/uL [facility] Mean Platelet Volume 11.1 9.4 - 12.3 fL [facility] NRBC Pct Auto 0.0 0.0 - 0.2 /100WBC [facility] NRBC Abs Auto 0.000 0.0 - 0.012 X10*3/uL [facility] Blood Venous blood specimen / Unknown 04/20/2025 3:30 PM EDT 04/20/2025 4:14 PM EDT us Zaria James DO LAB BLOOD ORDERABLES Final R esult Performing Organization Address City/[facility]/ZIP Co de Phone Number [facility] [address] [place] [phone] * Lipase (04/20/2025 3:30 PM EDT) Lipase 25 8 - 78 U/L [facility] Blood Venous blood specimen / Unknown 04/20/2025 3:30 PM EDT 04/20/2025 4:03 PM EDT Zaria James DO LAB BLOOD ORDERABLES Final R esult Performing Organization Address [facility] de Phone Number [facility] [address] [place] [phone] * Amylase (04/20/2025 3:30 PM EDT) Amylase 39 28 - 100 U/L [facility] Comment:Moderate Hemolysis.I nterpret result with caution. Blood Venous blood specimen / Unknown 04/20/2025 3:30 PM EDT 04/20/2025 4:03 PM EDT Zaria James DO LAB BLOOD ORDERABLES Final R esult Performing Organization Address [facility] Phone Number [facility] [address] [place] [phone] * Helicobacter pylori, Urea Breath Test (04/20/2025 3:15 PM EDT) H. pylori Breath Test Negative Negative [facility] Comment:Antimicrobials, prot on pump inhibitors and bismuthpreparations are known to suppress H. pylori. Ingestingthese medications within two weeks prior to performing thebreath test may produce negative test results. A positiveresult is still clinically valid. Breath 04/20/2025 3:15 PM EDT 04/20/2025 4:18 PM EDT Zaria James DO LAB BODY FLUIDS AND STOOLS O RDERABLES Final Result Performing Organization Address [facility]/ZIP Co de Phone Number [facility] [address] [place] [phone] * (ABNORMAL) Lipid Panel with Reflex to Direct LDL (08/18/2024 10:05 AM EST) Triglycerides 63 <150 mg/dL [facility] Comment:Desirable Triglyceri de: less than 150 mg/dLBorderline High Triglyceride 150-199 mg/dLHigh Triglyceride: 200-499 mg/dLVery High Triglyceride: greater than or equal to 5OO mg/dL Cholesterol 131 <200 mg/dL [facility] Comment:Desirable Cholestero l: less than 200 mg/dLBorderline High Cholesterol: 200-239 mg/dLHigh Cholesterol: greater than 239 mg/dL LDL Cholesterol Calculated 80 <100 mg/dL [facility] Comment:Desirable LDL: less than 100 mg/dLNear Optimal/Above Optimal LDL: 110- 129 mg/dLBorderline High LDL: 130-159 mg/dLHigh LDL: 160-189 mg/dLVery High LDL: greater than or equal to 190 mg/dL HDL Cholesterol 39(L) >40 mg/dL [facility] Comment:Desirable HDL: great er than 40 mg/dL Note: This HDL assay may give artificially low results in patients with liver disease. Blood 08/18/2024 10:0 5 AM EST 08/18/2024 11:12 AM EST us Lizzie Schwarz MD LAB BLOOD ORDERABLES Final Resul t [facility] [address] [place] [phone] * Hemoglobin A1c (08/18/2024 10:05 AM EST) Hemoglobin A1c 5.8 <6.0 % [facility] Comment:Hemoglobin A1C Refer ence Range Adults: 4.8 - 6.0 % Non diabetic: < 6.0 % Goal: < 7.0 %Additional Action Suggested: > 8.0 %Note: Hemoglobin A1c results are invalid for patients with abnormal amounts of HbF. Blood transfusions may impact the HbA1c concentration in the patient sample. Estimated Average Glucose 120 mg/dL [facility] Comment:eAG = Estimated ave rage glucose which is %A1C expressed asaverage glucose, using the formula of the K1Z-GxpidadVcfhmnj Glucose study (ADAG), Diabetes Care, Vol.31,#8,Mar. 2007 Blood Venous blood specimen / Unknown 08/18/2024 10:05 AM EST 08/18/2024 11:12 AM EST Lizzie Schwarz MD LAB BLOOD ORDERABLES Final Resul t [facility] [address] [place] [phone] * Pap Smear (04/11/2019) Pap Negative for intraephithelial lesion or malignancy Negative for intraephithelial lesion or malignancy, Other Historical Provider HEALTH MAINTENANCE Final Result from Last 3 Months or Most Recently Relevant to Health Maintenance Insurance [employer] Care Teams Vending Route Driver Relationship Specialty Start Date End Date Lizzie Schwarz MD [address] [place] [address] PCP - General Family Medicine 03/20/22
[2025-04-24 20:00] VITALS: BP 141/89; PULSE 84; RESP 16; TEMP 36.9; O2SAT 99
[2025-04-24 20:51] LABS: OBS Int Ctl Valid YES; OBS1 NEGATIVE (NEGATIVE)
--- NOTE | 2025-04-24 21:27 | PC.NURSE ---
assumed care of pt, family at bedside, pt having xray done.
--- NOTE | 2025-04-24 21:32 | PC.NURSE ---
pt denies current pain on right side but states she may just be used to the pain as it has been going on for w while, denies taking anything for pain, pepto bismol taken a week or s ago. reports abnormal BM, every other day rather than daily.
[2025-04-24] MEDS: Sucralfate Oral Suspension 1 GM/10 ML ORAL.SUSP PO (22:14)
[2025-04-24 22:28] VITALS: BP 134/95; PULSE 84; RESP 16; TEMP 36.4; O2SAT 100
== END 2025-04-24 22:30 | disposition home or self-care (01) ==
PROVIDERS: Physician Assistant Medical; Emergency Provider Emergency Medicine; PCP Family Medicine
DX: R10.13 Epigastric pain (principal); K21.9 Gastro-esophageal reflux disease without esophagitis
CPT/HCPCS: 36415; 74018; 80048; 80076; 82272; 83735; 84702; 85025; 99283; 99284

== ENCOUNTER → 2025-04-24 21:13 | Outpatient (BNV) | payer OTHER, SELFPAY | PROVIDERS: Emergency Provider Emergency Medicine; PCP Family Medicine; Visit Provider Radiology Diagnostic Radiology | DX: R10.13 Epigastric pain (principal); Z90.49 Acquired absence of other specified parts of digestive tract | CPT/HCPCS: 74018 ==

== ENCOUNTER 2025-05-10 09:59 | Outpatient (REF) | payer OTHER, SELFPAY ==
--- NOTE | ~2025-05-10 | US_ITS ---
EXAMINATION: US ABDOMEN HISTORY: worsening epigastric pain TECHNIQUE: Real-time grayscale ultrasound imaging of the abdomen was performed and images were reviewed. COMPARISON: Comparison is made with the prior examination dated 12/25/2022. FINDINGS: Liver: The right lobe of the liver measures 17.0 cm in size. The left lobe of the liver measures 5.4 cm in size. The liver demonstrates increased echotexture, consistent with steatosis. No focal mass or intrahepatic biliary ductal dilatation is identified. There is normal hepatopedal flow in the portal vein. Gallbladder and biliary tree: The gallbladder is surgically absent. The common bile duct is normal in caliber measuring 3 mm. Kidneys: The right kidney measures 9.5 cm in length. The left kidney measures 9.9 cm in length. The kidneys are unremarkable, without evidence of masses, hydronephrosis, or calculi. Pancreas: The pancreatic head, neck, and body are unremarkable. The pancreatic tail is obscured by bowel gas. Spleen: The spleen is normal in size and contour, measuring 9.9 cm in length. Abdominal aorta and inferior vena cava: The visualized portions of the abdominal aorta and inferior vena cava are normal in caliber. There is no free fluid in the abdomen. US/US abdomen complete IMPRESSION: Hepatic steatosis. Electronically signed by: Faustino Briggs MD 05/10/2025 11:32 AM EDT
== END 2025-05-10 10:00 | disposition home or self-care (01) ==
LOC: HO.US 09:59
PROVIDERS: PCP Family Medicine; Visit Provider Family Medicine
DX: R10.13 Epigastric pain (principal)
CPT/HCPCS: 76700

== ENCOUNTER → 2025-05-10 10:01 | Outpatient (BNV) | payer OTHER, SELFPAY | PROVIDERS: PCP Family Medicine; Visit Provider Radiology Diagnostic Radiology | DX: K76.0 Fatty (change of) liver, not elsewhere classified (principal) | CPT/HCPCS: 76700 ==